=== PATIENT | male | born 1960 | race Caucasian/White ===

== ENCOUNTER 2021-12-15 13:00 | Outpatient (REF) | payer OTHER, SELFPAY ==
--- NOTE | 2021-12-15 11:15 | SKI_PTH ---
PATIENT: Mk Camp LOC: [facility] U#:[id number] AGE/SX: 61/M ROOM: RE12/15/[address]: Ryan Zendejas DO : 1960 BED: DIS: 12/15/2021 SPEC #: [id number] RECD: 12/18/21 12:41 STATUS: LORENZO REQ #: [id number] JAYDA: 12/15/21 11:[address]: Ryan Zendejas DEPT: Surgical Specimen RECD BY: Melva Zheng ENTERED: 12/18/21 12:41 SP TYPE: SKI OTHR DR: Gonzalez Gonzalez Tissues: 1 - SKIN BIOPSY(SHAVE/PUNCH) Procedures: SKIN LEVEL 4 Comments: [id number]
--- OUTSIDE RECORDS SUMMARY | 2021-12-15 13:04 | XMS_ITS ---
:1960 Author Organization Department [facility] rs Address [address] [place] [address] Care Team Providers Name Role Phone FLOWERCHELLE DARIN Primary Care Provider Unavailable Insurance Providers: All historical and current Section Date Range: From patient's date of to the date document was created.This section includes the names of all active insurance providers for the patient. Insurance Type of Plan Start of End of Group Member Insurance Policy P atient's Provider Coverage Name Policy Policy Number ID Provider's Juarez's Relationship Coverage Coverage Telephone Name to Policy Number Juarez [place] Oct 08 [id number] [phone] Loc [place] PATIENT FEP INSURANCE L 112 2010 52 5 [place] (DENTAL) [place] PREF[place]ED BAS[place] Oct 08 [id number] [phone] Loc [place] PATIENT FEP PROVIDER FAMIL 2010 52 5 [place] ORGANIZAT Y ION (PPO) [place] PREFERRED BAS[place] Oct 08 [id number] [phone] Loc [place] PATIENT FEDERAL PROVIDER FAMIL 2010 52 4 ICHAEL ORGANIZAT Y ION (PPO) CAR[place]ARK-F PRESCRIPT FEP Oct [id number] Loc [place] PATIENT EP BCBS ION BCBS 2010 0 52 7 I[place]EL [place]ARK-F PRESCRIPT FEP Oct [id number] [phone] Loc [place] PATIENT EP BCBS ION 2010 0 52 331 [place] CAREMARK-F PRESCRIPT BCBS Oct [id number] [phone] Loc [place] PATIENT EP BCBS ION FEP 2010 0 52 331 I[place] PLAN HIGHMARK PREFERRED SUKHI Oct [id number] [phone] Loc SUMNER PATIENT BLUE PROVIDER AL* 2010 0 52 6 ICHA[place] CROSS* ORGANIZAT ION (PPO) HIGHMARK DENTAL SUKHI Oct 08 [id number] [phone] Loc CAMP PATIENT DENTAL INSURANCE AL 2010 52 7 ICHAEL (FEP) DENTA L HORIZON PREFERRED BASIC Oct [id number] [phone] KURT IM PATIENT BCBS FEP* PROVIDER FAMIL 2010 52 8 ICHAEL ORGANIZAT Y ION (PPO) INDEPENDEN PREFERRED BASIC Oct 08 [id number] [phone] Loc [place] PATIENT CE BLUE PROVIDER FAMIL 2010 52 0 ICHA[place] CROSS ORGANIZAT Y (FEP) ION (PPO) Selected Encounter This section includes the information on record at SD for the Encounter. Date/Time Encounter Type Encounter Description Reason Provider Source Aug 12, 2021 12:00 Outpatient Encounter EVENT (HISTORICAL) AM E Encounter Template Text not used by SD Plan of Treatment: Future Appointments (+ 6 months) and Future Tests (+/- 45 days) The Plan of Treatment section includes future care activities for the patient from all [place] treatment facilities. This section includes future appointments and future orders which are active, pending or scheduled.Future Appointments This section includes appointments that were scheduled to occur 6 months from the date of the Encounter, up to a maximum of 20 appointments. The [facility] Appointment Date/Time Appointment Type Appointment Facili ty Name Aug 15, 2021 10:30 AM AMBULAT[facility] - [facility]INE [facility] Aug 18, 2021 04:36 PM AMBULATORY - NONE [facility] Sep 25, 2021 11:30 AM [facility] Oct 05, 2021 02:00 PM [facility] - [facility] [place] [facility] Oct 05, 2021 03:30 PM AMBULATORY - NONE [facility] Nov 22, 2021 10:00 AM [facility]ORY - [facility]IC[facility] [place] [facility] Nov 22, 2021 11:30 AM AM[facility]ORY - NONE [facility] Dec 15, 2021 11:15 AM [facility] Jan 25, 2022 11:30 AM [facility] - MEDICINE [facility] Active, Pending, and Scheduled Orders This section includes a listing of several types of active, pending, and scheduled orders, including clinic medications orders, diagnostic test orders, procedure orders and consult orders; where the start date of the order is 45 days before the date of the Encounter or 45 days after the date of the Encounter. The data comes from all [place] treatment facilities. Test Date/Time Test Type Test Details Facility Name Aug 15, 2021 10:44 AM Consult Order COLONOSCOPY SCREENING OUTP T [facility] Cons Orthopedic Shoe Fitter's Choice Lab Results: +/- 30 days of the encounter This section includes the Chemistry and Hematology Lab Results on record with SD for the patient. Radiology Reports and Pathology Reports are provided separately, in subsequent sections.Lab Results This section contains the Chemistry/Hematology Results that were resulted 30 days before or 30 days after the date of the Encounter. Date/Time Source Result Type Result - Unit Interpretation Reference Range Comment Aug 15, 2021 11:01 [facility] URINALYSIS W/REFLEX TO Specimen Type: URINE AM CULTURE No comment enter ed. Ordering Provider: DARIN ZHAO Report Released Date/Time: Aug 15, 2021 10:46 AM Reporting Lab: [facility] [address] [facility] [address] Performing Lab: [facility] [address] [facility] [address] URINE COLOR Straw YELLOW SPECIFIC GRAVITY 1.005 1.003-1.030 UROBILINOGEN <2.0 mg/dL <2.0 URINE BILIRUBIN NEG NEG URINE KETONES NEG mg/dL NEG URINE GLUCOSE NEG mg/dL NEG PROTEIN, URINE NEG mg/dL NEG URINE PH 7.0 5-8 CLARITY CLEAR Clear URINE BLOOD NEG NEG NITRITE, URINE NEG NEG WBC SCREEN NEG NEG Aug 15, 2021 11:01 [facility] P4 GLU,BUN,CREAT,LYTES,CA Specimen Type: PLASMA AM Comment: Tests performed on [employer] (405) SN:[id number] Ordering Provider: DARIN ZHAO Report Released Date/Time: Aug 15, 2021 10:46 AM Reporting Lab: [facility] [address] [facility] [address] Performing Lab: IBRAHIMA MARTIN [facility] [address] [facility] [address] UREA NITROGEN 18 mg/dL 7-25 SODIUM 138 mmol/L 135-145 POTASSIUM 4.0 mmol/L 3.5-5.0 CHLORIDE 106 mmol/L 100-110 CARBON DIOXIDE 21 mmol/L 20-30 ANION GAP 11 mmol/L 4-16 GLUCOSE 94 mg/dL 65-100 CREATININE 1.04 mg/dl 0.5-1.5 CALCIUM 9.1 mg/dL 8.5-10.5 eGFR 73 mL/min >60 Immunizations: All administered on the encounter date This section contains immunizations associated to the Encounter. Immunization Series Date Issued Reaction Comments COVID-19 (PFIZER), MRNA, LNP-S, PF, 30 MCG/0.3 2 Aug 12, 2021 ML DOSE Social History: Smoking Status (Most current) and Tobacco Use (All prior to encounter date) This section includes the most current, and the historical, smoking and tobacco-related health factors from the [place] facility where the Encounter took place.Current Smoking Status This section includes the most current smoking, or tobacco-related health factor, from the [place] facility where the Encounter took place. Date/Time Current Smoking Status Comment Facility May 02, 2020 03:54 PM VA-TOBACCO NEVER USED SVETLANA MARTIN [facility] Radiology Reports: +/- 30 days of the encounter Radiology Reports For cases when an order for radiology services may have been completed prior tothe date of the Encounter, the report list includes the Radiology Reports that were completed up to 30 days before date of the Encounter. For cases when an order for radiology services may have been completed after the date of the Encounter, the report list also includes the Radiology Reports that were completed up to 30 days after date of the Encounter. The data comes from all [place] treatment facilities. Date/Time Radiology Report Provider Source Aug 18, 2021 09:28 AM ULTRASOUND RENAL: IBRAHIMA JOHNS [facility] GERALD CAMP [id number] -JAN 10 [birth year] M Exm Date: AUG 18, 2021@09:28 Req Phys: EVONNE VALERA Loc: OUTSIDE ULTRASOUND (Req'g Loc) Img Loc : OUTSIDE ULTRASOUND Service : Unknown (Case [id number] COMPLETE) ULTRASO UND RENAL (US Detailed) CPT:94335 Reason for Study: Exam imported from outsid e Clinical History: Original Data for Imported Study Patient Name: Gerald Camp Date: 1960 Sex: M Study Date: 08/18/21 [facility] Time: 09:28:05 Study Description: US BLADDER W/RENAL Referring Physician: Darin Zhao Series 1: 1 US file Series 2: 40 US files, description: US B LADDER W/RENAL Acquisition site: [facility] Report Status: Electronically Filed Da te Reported: AUG 30, 2021 Report: RADIOLOGY PROCEDURE: N O T I C E: SCANNED IN R EPORT THIS EXAMINATION WAS PERFORMED AND INTERP RETED AT A NON-VA FACILITY. To view the report, select the [employer] Tools Menu and choose the Image Display (Viewer) option. Impression: RADIOLOGY PROCEDURE: N O T I C E: SCANNED IN R EPORT THIS EXAMINATION WAS PERFORMED AND INTERP RETED AT A NON-VA FACILITY. To view the report or images, select the [employer] Tools Menu and choose the Image Display (Viewer) optio n. Primary Diagnostic Code: NOT ORDERED BY [facility] VERIFIED BY: / *ELECTRONICALLY FILED* Pathology Reports: +/- 30 days of the encounter Pathology Reports For cases when an order for pathology services may have been completed prior to the date of the Encounter, the report list includes the Pathology Reports that were completed up to 30 days before date of the Encounter. For cases when an order for pathology services may have been completed after the date of the Encounter, the report list also includes the Pathology Reports that were completed up to 30 days after date of the Encounter. The data comes from all [place] treatment facilities. Date/Time Pathology Report Provider Source Aug 18, 2021 04:43 PM LR CYTOPATHOLOGY REPORT: FEDE EVANS [facility] LOCAL TITLE: LR CYTOPATHOLOGY REPORT STANDARD TITLE: PATHOLOGY REPORT DATE OF NOTE: AUG 18, 2021@16:43:21 ENTRY DATE: AUG 18, 2021@16:43:21 AUTHOR: FEDE EVANS EXP COSIGNER: URGENCY: STATUS: COMPLETED $APHDR Reporting Lab: [facility] [CLIA# [id number]] [address] [place] [place] [facility] [address] - - - - - - - - - - - - - - - - - - - - - - - - - - - - - - - - - - - - - - - - MEDICAL RECORD CYTOPATH OLOGY - - - - - - - - - - - - - - - - - - - - - - - - - - - - - - - - - - - - - - - - PATHOLOGY REPORT Accession No. CY 21 543 - - - - - - - - - - - - - - - - - - - - - - - - - - - - - - - - - - - - - - - - $TEXT Submitted by: DARIN ZHAO Date obtained: Aug 11, 2021 - - - - - - - - - - - - - - - - - - - - - - - - - - - - - - - - - - - - - - - - Specimen (Received Aug 16, 2021 08:58): URINE [id number] - - - - - - - - - - - - - - - - - - - - - - - - - - - - - - - - - - - - - - - - BRIEF CLINICAL HISTORY: - - - - - - - - - - - - - - - - - - - - - - - - - - - - - - - - - - - - - - - - PREOPERATIVE DIAGNOSIS: - - - - - - - - - - - - - - - - - - - - - - - - - - - - - - - - - - - - - - - - OPERATIVE FINDINGS: - - - - - - - - - - - - - - - - - - - - - - - - - - - - - - - - - - - - - - - - POSTOPERATIVE DIAGNOSIS: Surgeon/physician: NICANOR ZHAO CPR AMBULANCE DRIVER =-=-=-=-=-=-=-=-=-=-=-=-=-=- =-=-=-=-=-=-=-=-=-=-=-=-=-=-=-=-=-=-=-=-=-=-=-=-=-= - - - - - - - - - - - - - - - - - - - - - - - - - - - - - - - - - - - - - - - - PATHOLOGY REPORT Accession No. CY 21 543 - - - - - - - - - - - - - - - - - - - - - - - - - - - - - - - - - - - - - - - - Screened by: SCOTTY MOISE Description: RECEIVED 20mL OF CLEAR, YELLOS FLUID. SENT WITH CYTOLYT IN 1 TUBE. [facility] [id number] Diagnosis: Satisfactory specimen No malignant cells identified CPT:27198 /chelle/ FEDE EVANS M.D. PATHOLOGIST Signed Aug 18, 2021@16:43 Performing Laboratory: Cytology Report Performed By: [facility] [CLIA# [id number]] [address] [place] [phone] $FTR - - - - - - - - - - - - - - - - - - - - - - - - - - - - - - - - - - - - - - - - (End of report) FEDE EVANS MD Date Aug 18, 2021 - - - - - - - - - - - - - - - - - - - - - - - - - - - - - - - - - - - - - - - - GERALD CAMP STANDARD FORM 515 ID:[id number] SEX:M :1960 AGE: 61 LO C:NEW HIP PC P: Darin Zhao NP /chelle/ FEDE EVANS M.D. PATHOLOGIST Signed: 08/18/2021 16:43
--- OUTSIDE RECORDS SUMMARY | 2021-12-15 13:04 | XMS_ITS | Encounter Summary ---
:1960 Author Organization Department of [facility] rs Address [address] [place] [address] Care Team Providers Name Role Phone DARIN ZHAO Primary Care Provider Unavailable Insurance Providers: All [...] [place] Oct 08 [id number] [phone] Loc [place] PATIENT FEP INSURANCE L 112 2010 52 5 [place] (DENTAL) [place] PREF[place]ED BAS[place] Oct 08 [id number] [phone] Loc [place] PATIENT FEP PROVIDER FAMIL 2010 52 5 [place] ORGANIZAT Y ION (PPO) [place]REF[place] Oct 08 [id number] [phone] Loc [place] PATIENT FEDERAL PROVIDER FAMIL 2010 52 4 [place] ORGANIZAT Y ION (PPO) [place]-F PRESCRIPT FEP Oct 08 [id number] [phone] Loc [place] PATIENT EP BCBS ION BCBS 2010 0 52 7 [place] CAREMARK-F PRESCRIPT FEP Oct 08 [id number] [phone] Loc [place] PATIENT EP BCBS ION 2010 0 52 331 [place] CAREMARK-F PRESCRIPT BCBS Oct 08 [id number] [phone] Loc [place] PATIENT EP BCBS ION FEP 2010 0 52 331 [place] PLAN HIGHMARK PREFERRED SUKHI Oct 08 [id number] [phone] Loc [place] PATIENT BLUE PROVIDER AL* 2010 0 52 6 I[place] CROSS* ORGANIZAT ION (PPO) HIGHMARK DENTAL SUKHI Oct 08 [id number] [phone] Loc MARIE PATIENT DENTAL INSURANCE AL 2010 52 7 ICHAEL (FEP) DENTA L HORIZON PREFERRED BASIC Oct 08 [id number] [phone] Loc [place] PATIENT BCBS FEP* PROVIDER FAMIL 2010 52 8 [place] ORGANIZAT Y ION (PPO) INDEPENDEN PREFERRED BASIC Oct 08 [id number] [phone] Loc [place] PATIENT CE BLUE PROVIDER FAMIL 2010 52 0 [place] CROSS ORGANIZAT Y (FEP) ION (PPO) Selected Encounter This section includes the information on record at [place] for the Encounter. Date/Time Encounter Type Encounter Description Reason Provider Source Jun 29, 2021 10:44 Outpatient Encounter TELEPHONE TRIAGE AM IHE Encounter Template Text not used by [facility] Plan of Treatment: Future Appointments (+ 6 months) and Future Tests (+/- 45 days) The Plan of Treatment section includes future care activities for the patient from all [place] treatment facilities. This section includes future appointments and future orders which are active, pending or scheduled.Future Appointments This section includes appointments that were scheduled to occur 6 months from the date of the Encounter, up to a maximum of 20 appointments. The data comes [facility] [place] [facility] Appointment Date/Time Appointment Type Appointment Facili ty Name Aug 15, 2021 10:30 AM AMBULATORY - MEDICINE [facility] Aug 18, 2021 04:36 PM AMBULATORY - NONE [facility] Sep 25, 2021 11:30 AM AMBULATORY - MEDICINE [facility] Oct 05, 2021 02:00 PM [facility] - [facility]IC[facility] [place] [facility] Oct 05, 2021 03:30 PM AMBULATORY - NONE [facility] Nov 22, 2021 10:00 AM [facility] - [facility]IC[facility] [place] [facility] Nov 22, 2021 11:30 AM AMBULATORY - NONE [facility] Dec 15, 2021 11:15 AM [facility] Lab Results: +/- 30 days of the encounter This section includes the Chemistry and Hematology Lab Results on record with [place] for the patient. Radiology Reports and Pathology Reports are provided separately, in subsequent sections.Lab Results This section contains the Chemistry/Hematology Results that were resulted 30 days before or 30 days after the date of the Encounter. Date/Time Source Result Type Result - Unit Interpretation Reference Range Comment Jun 28, 2021 09:55 [facility] GLYCOHEMOGLOBIN (A1C ONLY) Specimen Type: BLOOD AM Comment: Tests performed on [employer] (405) SN:[id number] Ordering Provider: DARIN ZHAO Report Released Date/Time: Jun 28, 2021 07:11 AM Reporting Lab: [facility] [address] [facility] [address] Performing Lab: [facility] [address] [facility] [address] HEMOGLOBIN A1C 5.3 % 4.0-5.6 Jun 28, 2021 09:55 AM [facility] IRON+TIBC(P) Specimen Type: PLASMA Comment: Tests performed on [employer] (405) SN:[id number] Ordering Provider: DARIN ZHAO Report Released Date/Time: Jun 28, 2021 07:11 AM Reporting [facility] [address] [place] [facility] [place] [address] Performing Lab: [facility] [address] [place] [facility] [place] [place] [place] [address] IRON 59 ug/dL 40-160 TIBC 303 ug/dL 204-475 IRON SATURATION(P) 19 % >15 Jun 28, 2021 09:55 AM [facility] FERRITIN Specimen Type: SERUM Comment: Tests performed on [employer] (405) SN:[id number] Ordering Provider: DARIN ZHAO Report Released Date/Time: Jun 28, 2021 07:11 AM Reporting Lab[facility] [address] [place] [facility] [place] [place] [place] [address] Performing Lab: [facility] [address] [facility] [address] FERRITIN 287.5 ng/mL 20-300 Jun 28, 2021 09:55 [facility] P4 GLU,BUN,CREAT,LYTES,CA Specimen Type: PLASMA AM Comment: Tests performed on [employer] (405) SN:[id number] Ordering Provider: DARIN ZHAO Report Released Date/Time: Jun 28, 2021 07:11 AM Reporting Lab: [facility] [address] [facility] [address] Performing Lab: [facility] [address] [facility] [address] UREA NITROGEN 21 mg/dL 7-25 SODIUM 137 mmol/L 135-145 POTASSIUM 3.8 mmol/L 3.5-5.0 CHLORIDE 106 mmol/L 100-110 CARBON DIOXIDE 22 mmol/L 20-30 ANION GAP 9 mmol/L 4-16 GLUCOSE 98 mg/dL 65-100 CREATININE 1.07 mg/dl 0.5-1.5 CALCIUM 8.6 mg/dL 8.5-10.5 eGFR 71 mL/min >60 Jun 28, 2021 09:55 AM [facility] CBC PROFILE Specimen Type: BLOOD No comment enter ed. Ordering Provider: DARIN ZHAO Report Released Date/Time: Jun 28, 2021 07:11 AM Reporting Lab: [facility] [address] [facility] [address] Performing Lab: [facility] [address] [facility] [address] WBC 7.6 10*3/uL 4.5-11.0 RBC 5.36 10*6/uL 4.23-5.66 HGB 16.2 g/dl 12.8-17 HEMATOCRIT 48.6 % 39.2-50.4 MCV 90.7 fl 82-99 MCH 30.2 pg 26.2-32.6 MCHC 33.3 g/dl 30.8-35.1 PLT 259 10*3/uL 140-360 MPV 10.5 fl 9.2-12.4 RDW 12.5 % 12.0-16.0 LYMPH % 18.8 % 14.0-42.3 MONO % 10.1 % 5.1-13.7 NEUT % 68.4 % 43.7-75.8 EOS % 1.7 % 0.4-6.8 BASO % 0.7 % 0.1-2.0 IG % 0.3 % 0.0-0.7 NUCLEATED RED CELLS 0.0 /100 WBC 0.0-0.0 ABSOLUTE IG 0.0 10*3/uL 0-0.06 ABSOLUTE BASOPHILS 0.1 10*3/uL 0.01-0.13 ABSOLUTE EOS. 0.1 10*3/uL 0.03-0.44 ABSOLUTE LYMPHOCYTES 1.4 10*3/uL 1.0-3.2 ABSOLUTE MONOCYTES 0.8 10*3/uL 0.3-1.1 ABSOLUTE GRANULOCYTES 5.2 10*3/uL 2.2-7. 6 ABSOLUTE NRBC 0.00 10*3/uL 0-0 Jun 28, 2021 09:55 AM [facility] LIVER PROFILE Specimen Type: PLASMA Comment: Tests performed on [employer] (405) SN:[id number] Ordering Provider: DARIN ZHAO Report Released Date/Time: Jun 28, 2021 07:11 AM Reporting [facility] [address] [address] Performing Lab: [facility] [address] [address] PROTEIN, TOTAL 7.2 g/dL 6.0-8.5 ALBUMIN 3.8 g/dL 3.2-5.0 BILIRUBIN, TOTAL 0.6 mg/dL 0.2-1.2 ALKALINE PHOSPHATASE 68 U/L 40-150 ALT(SGPT) 30 U/L 7-52 AST(SGOT) 21 U/L 5-34 Jun 28, 2021 09:55 [facility] LIPOPROTEIN CHOLESTEROL Specimen Type: PLASMA AM FRACT. PANEL Comment: Tests performed on [employer] (405) SN:[id number] Ordering Provider: DARIN ZHAO Report Released Date/Time: Jun 28, 2021 07:11 AM Reporting Lab: [facility] [address] [address] [facility]forming Lab: [facility] [address] [address] CHOLESTEROL 184 mg/dL 0-199 TRIGLYCERIDE 90 mg/dL 0-149 HDL CHOLESTEROL 39 mg/dL L >40 LDL CHOLESTEROL (CALC) 127 mg/dl 0-129 Social History: Smoking Status (Most current) and Tobacco Use (All prior to encounter date) This section includes the most current, and the historical, smoking and tobacco-related health factors from the [place] facility where the Encounter took place.Current Smoking Status This section includes the most current smoking, or tobacco-related health factor, from the [place] facility where the Encounter took place. Date/Time Current Smoking Status Comment Facility May 02, 2020 03:54 PM VA-TOBACCO NEVER USED SVETLANA [facility] Encounter Notes: All associated encounter notes This section contains the clinical notes associated to the Encounter. Date/Time Encounter Note(s) Provider Source Jun 29, 2021 10:44 AM PRIMARY CARE ADMINISTRATIVE NOTE: ELSIE MOORE [facility] LOCAL TITLE: Administrative Note/Primary Care STANDARD TITLE: PRIMARY CARE ADMINISTRATIVE NOTE DATE OF NOTE: JUN 29, 2021@10:44 ENTRY DATE: JUN 29, 2021@10:44:42 AUTHOR: ELSIE ZEE EXP COSIGNER: URGENCY: STATUS: COMPLETED Tatyana called from [facility] regarding his Renal Bladde r US order for his kidney stones. She called the office of community care for an authorization and they don't have a request on file. /chelle/ ELSIE ZEE Signed: 06/29/2021 10:45 Receipt Acknowledged By: * AWAITING SIGNATURE * DARIN ZHAO * AWAITING SIGNATURE * AIDE LLOYD V
--- OUTSIDE RECORDS SUMMARY | 2021-12-15 13:04 | XMS_ITS | Continuity of Care Document ---
:1960 Author Organization [facility] Care Team Providers Name Role Phone [facility] Unavailable Unavailable Problems Combined list of problems from Department of Defense and Veterans Affairs facilities. It does not include entries that were removed or entered in error. Problem Status Onset Problem Date of Comments Source Date Type Resolution Ankle pain Active Condition [facility]ion of lower [facility] Active Condition [facility] Nov 17, 2013 Entered By: YELITZA YOUNG Comment: right kidney/uret er operation Hydronephrosis Active Condition [facility] Jan 18, 2014 Entered By: YELITZA YOUNG Comment: right Jan 18, 2014 Entered By: YELITZA YOUNG Comment: [place] 01/2014 Hyperlipidemia Active Condition [facility] Obstruction of Active Condition [facility] pelviureteric [facility] Vitamin D deficiency Active Condition 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 Provider Comments: Hemangioma of skin and subcutaneous tissue Diagnosis: ICD-10-CM active Diagnosis [place] Z71.9 Counseling, JOSE T [facility] unspecifiedwith Provider Comments: Counseling, unspecified Diagnosis: ICD-10-CM active Diagnosis [place] N13.[address] [facility] hydronephrosiswith Provider Comments: Unspecified hydronephrosis Diagnosis: ICD-10-CM active Diagnosis [facility] N13.30 Unspecified C LINIC hydronephrosiswith Provider Comments: Unspecified Hydronephrosis Diagnosis: ICD-10-CM active Diagnosis [facility] M79.632 Pain in left CLINIC forearmwith Provider Comments: Pain in left Forearm Diagnosis: ICD-10-CM active Diagnosis [place] R00.1 Bradycardia, J CT [facility] unspecifiedwith Provider Comments: Bradycardia, unspecified Diagnosis: ICD-10-CM active Diagnosis [place] M25.512 Pain in left T [facility] shoulderwith Provider Comments: Pain in left Shoulder Diagnosis: ICD-10-CM active Diagnosis [place] Z46.0 Encounter for [facility] fit/adjst of spectacles and contact lenseswith Provider Comments: Encounter for Fitting and Adjustment of Spectacles and Contact Lenses Diagnosis: ICD-10-CM active Diagnosis [facility] [facility] R35.0 Frequency of C LINIC micturitionwith Provider Comments: Frequency of Micturition Medications Combined list of outpatient medications from Department of Defense and Veterans Affairs facilities. Medications provided include 1) outpatient medications from the last 15 months, and 2) patient-reported medications. Medication Details Route Status Patient Prescription Prescription Last Ordering Order Source Instructions Expires Number Dispense Provider Date Date ACETAMINOPH TAKE ONE ORAL ACTIVE YOUNG,KET 11/17/ COATESV EN 500MG TABLET KI D 2013 [facility] AMOXICILLIN TAKE ONE ORAL ACTIVE BRYON 08/21/ [place] TRIHYDRATE TABLET ,ANTOINE 2017 [facility] 500MG/CLAVU BY MOUTH R CLINI C LANATE K THREE 125MG TAB TIMES A DAY FLUTICASONE INSTILL NASAL ACTIVE BRYON 08/21/ [place] PROPIONATE 2 SPRAYS ,ANTOINE 2017 [facility] 50MCG/SPRAY INTO R CLINIC SOLN,NASAL, EACH 16GM NOSTRIL PEG-3350/EL TAKE 1 ORAL ACTIVE/ 2022 [id number] RAY,KR IST 12/25/ WHITE ECTROLYTES GALLON SUSP 2 EN A 2021 [place] PWDR BY MOUTH [place] [facility] DIRECTED - DO NOT START COLONOSC OPY PREPARAT ION UNTIL YOU ARE CONTACTE D BY THE GASTROEN TEROLOGY DEPARTME NT WITH INSTRUCT IONS PREPARE. ..STARTI NG AT 6PM THE DAY PRIOR TO YOUR PROCEDUR E, DRINK 8OZ EVERY 20 MINUTES UNTIL DONE WITH THE FIRST HALF GALLON(6 4OZ). STARTING 6 HOURS BEFORE YOUR PROCEDUR E TIME, DRINK 8OZ EVERY 20 MINUTES UNTIL DONE WITH SECOND HALF GALLON(6 4OZ). 01/25/22 - DO NOT START COLONOSC OPY PREPARAT ION UNTIL YOU ARE CONTACTE D BY THE GASTROEN TEROLOGY DEPARTME NT WITH INSTRUCT IONS PREPARE. ..STARTI NG AT 6PM THE DAY PRIOR TO YOUR PROCEDUR E, DRINK 8OZ EVERY 20 MINUTES UNTIL DONE WITH THE FIRST HALF GALLON(6 4OZ). STARTING 6 HOURS BEFORE YOUR PROCEDUR E TIME, DRINK 8OZ EVERY 20 MINUTES UNTIL DONE WITH SECOND HALF GALLON(6 4OZ). 01/25/22 Immunizations Combined list of available immunizations from the Department of Defense and Veterans Affairs facilities. Immunization Series Date Administered Site Reaction Lot CVX Drug St atus Comments Source Given By Number Code Certified Mortician COVID-19 2 complet [facility] ITE (PFIZER), 2020 ed RIVE R MRNA, LNP-S, J CT PF, 30 [facility] MCG/0.3 ML DOSE COVID-19 1 complet WH ITE (PFIZER), 2020 ed RIVE R MRNA, LNP-S, J CT PF, 30 [facility] MCG/0.3 ML DOSE TDAP complet Site: [place] [facility] 2018 ed Left [facility] Deltoid [facility]INIC Results Combined list of recent chemistry, hematology and other laboratory results from Department of Defense and Veterans Affairs, ranging from 15 months to all on record, depending upon the facility. Order Name Results Value Reference Date Interpretation Specimen Com ments Source Range UREA UREA 20 7 - 25 11/22 Specimen Type: PLASMA WHITE NITROGEN NITROGEN mg/dL /2021 Comment: Tests performed on [employer] (405) SN:[id number] [place] [MASS/VOLUM Ordering Provider: DARIN ZHAO] IN SERUM Report Released Date/Time: Oct 27, 2021 11:17 AM V[facility] OR PLASMA Reporting [facility] [address] [facility] [address] Performing Lab: [facility] [address] [facility] [address] CREATININE CREATININE 1.11 0.5 - 1.5 11/22 Specimen Type: PLASMA WHITE WITH eGFR [MASS/VOLUM mg/dl /2021 Comment: Tests performed on [employer] (405) SN:[id number] [place] PANEL E] IN SERUM Ordering Provider: DARIN ZHAO OR PLASMA Report Released Date/Time: Oct 27, 2021 11:17 AM [facility] Reporting Lab: [facility] [address] [facility] [address] Performing Lab: [facility] [address] [facility] [address] CREATININE GLOMERULAR 68 60 11/22 Specimen T ype: PLASMA WHITE WITH eGFR FILTRATION mL/min /2021 Comment: Tests performed on [employer] (405) SN:[id number] [place] PANEL RATE/1.73 Ordering Provider: DARIN ZHAO SQ Report Released Date/Time: Oct 27, 2021 11:17 AM [facility] M.PREDICTED Reporting Lab: [facility]A MARTIN T [facility] [VOLUME [address] [facility] [address] RATE/AREA] Performing Lab: [facility] MART[facility] T [facility] IN SERUM OR [address] [facility] [address] PLASMA BY CREATININE- BASED FORMULA (MDRD) URINALYSIS COLOR OF Straw 08/15 Specimen Typ e: URINE BEAU W/REFLEX URINE /2020 No comment ente red. VA TO CULTURE Ordering Provider: DARIN ZHAO Report Released Date/Time: Aug 15, 2021 10:46 AM Reporting Lab: [facility] [address] [facility] [address] Performing Lab: [facility] [address] [place] [facility] [place] [address] URINALYSIS SPECIFIC 1.005 1.003 - 08/15 Specimen Typ e: URINE BEAU W/REFLEX GRAVITY OF 1.030 /2020 No comment e ntered. [facility] TO CULTURE URINE BY Ordering Provider: DARIN ZHAO REFRACTOMET Report Released Date/Time: Aug 15, 2021 10:46 AM RY Reporting Lab: [facility] T [facility] [address] [facility] [address] Performing Lab: [facility] [address] [facility] [address] URINALYSIS UROBILINOGE <2.0mg <2.0 - 2.0 08/15 Specim en Type: URINE BEAU W/REFLEX N /dL /2020 No comment ente red. [facility] TO CULTURE [MASS/VOLUM Ordering Provider: DARIN ZHAO E] IN URINE Report Released Date/Time: Aug 15, 2021 10:46 AM Reporting Lab: [facility] [address] [place] [facility] [facility] [place] [address] Performing Lab: [facility] [address] [facility] [address] URINALYSIS BILIRUBIN.T NEG 08/15 Specimen Type: URINE BEAU W/REFLEX OTAL /2020 No comment ente red. [facility] TO CULTURE [PRESENCE] Ordering Provider: DARIN ZHAO IN URINE BY Report Released Date/Time: Aug 15, 2021 10:46 AM TEST STRIP Reporting Lab: [place] T [facility] [address] [place] [facility] [place] [address] Performing Lab: [place] T [facility] [address] [place] [facility] [place] [address] URINALYSIS KETONES NEGmg/ 08/15 Specimen Type : URINE BEAU W/REFLEX [PRESENCE] dL /2020 No comment e ntered. VA TO CULTURE IN URINE Ordering Provider: DARIN ZHAO [facility] Report Released Date/Time: Aug 15, 2021 10:46 AM Reporting Lab: [place] [facility] [address] [place] [facility] [place] [address] Performing Lab: [place] T [facility] [address] [place] [facility] [place] [address] URINALYSIS GLUCOSE NEGmg/ 08/15 Specimen Type : URINE BEAU W/REFLEX [MASS/VOLUM dL /2020 No comment entered. [facility] TO CULTURE E] IN URINE Ordering Provider: DARIN ZHAO [facility] BY TEST Report Released Date/Time: Aug 15, 2021 10:46 AM STRIP Reporting Lab: [place] T [facility] [address] [place] [facility] [place] [address] Performing Lab: [place] T [facility] [address] [place] [facility] [place] [address] URINALYSIS PROTEIN NEGmg/ 08/15 Specimen Type : URINE BEAU W/REFLEX [MASS/VOLUM dL /2020 No comment entered. [facility] TO CULTURE E] IN URINE Ordering Provider: DARIN ZHAO [facility] BY TEST Report Released Date/Time: Aug 15, 2021 10:46 AM STRIP Reporting Lab: [place] T [facility] [address] [place] [facility] [place] [address] Performing Lab: [place] T [facility] [address] [place] [facility] [place] [address] URINALYSIS PH OF URINE 7.0 5 - 8 08/15 Specimen Type: URINE BEAU W/REFLEX BY TEST /2020 No comment ente red. [facility] TO CULTURE STRIP Ordering Provider: DARIN ZHAO [facility] Report Released Date/Time: Aug 15, 2021 10:46 AM Reporting Lab: [place] [facility] [address] [place] [facility] [address] Performing Lab: [place] [facility] [address] [place] [facility] [place] [address] URINALYSIS APPEARANCE CLEAR 08/15 Specimen T ype: URINE [place] W/REFLEX OF URINE /2020 No comment ent ered. VA TO CULTURE Ordering Provider: DARIN ZHAO [facility] Report Released Date/Time: Aug 15, 2021 10:46 AM Reporting Lab: [place] [facility] [address] [place] [facility] [address] Performing Lab: [place] T [facility] [address] [place] [facility] [place] [address] URINALYSIS HEMOGLOBIN NEG 08/15 Specimen T ype: URINE BE[place] W/REFLEX [PRESENCE] /2020 No comment e ntered. VA TO CULTURE IN URINE Ordering Provider: DARIN ZHAO [facility] Report Released Date/Time: Aug 15, 2021 10:46 AM Reporting Lab: [place] [facility] [address] [place] [facility] [address] Performing Lab: [place] T [facility] [address] [place] [facility] [place] [address] URINALYSIS NITRITE NEG 08/15 Specimen Type : URINE BEAU W/REFLEX [PRESENCE] /2020 No comment e ntered. VA TO CULTURE IN URINE BY Ordering Provider: DARIN ZHAO [facility] TEST STRIP Report Released Date/Time: Aug 15, 2021 10:46 AM Reporting Lab: [place] [facility] [address] [place] [facility] [address] Performing Lab: [place] T [facility] [address] [place] [facility] [place] [address] URINALYSIS LEUKOCYTES NEG 08/15 Specimen T ype: URINE [place] W/REFLEX [PRESENCE] /2020 No comment e ntered. VA TO CULTURE IN URINE Ordering Provider: DARIN ZHAO [facility] Report Released Date/Time: Aug 15, 2021 10:46 AM Reporting Lab: [place] [facility] [address] [place] [facility] [place] [address] Performing Lab: [place] [facility] [address] [place] [facility] [place] [address] P4 UREA 18 7 - 25 08/15 Specimen Type: PLASMA BE[place] GLU,BUN,CR NITROGEN mg/dL /2020 Comment: Tests performed on [employer] (405) SN:[id number] [place], MASS/VOLUM Ordering Provider: DARIN ZAHO E] IN SERUM Report Released Date/Time: Aug 15, 2021 10:46 AM OR PLASMA Reporting Lab: [facility] [address] [facility] [address] Performing Lab: [facility] [address] [facility] [address] P4 SODIUM 138 135 - 145 08/15 Specimen Type: PLASMA BE[place] GLU,BUN,CR [MOLES/VOLU mmol/L /2020 Comment: Tests performed on [employer] (405) SN:[id number] [place], MD] IN Ordering Provider: DARIN ZHAO [facility] SERUM OR Report Released Date/Time: Aug 15, 2021 10:46 AM PLASMA Reporting Lab: [facility] [address] [facility] [address] Performing Lab: [facility] [address] [facility] [address] P4 POTASSIUM 4.0 3.5 - 5.0 08/15 Specimen Typ e: PLASMA [place] GLU,BUN,CR [MOLES/VOLU mmol/L /2020 Comment: Tests performed on [employer] (405) SN:[id number] [place], MD] IN Ordering Provider: DARIN ZHAO [facility] SERUM OR Report Released Date/Time: Aug 15, 2021 10:46 AM PLASMA Reporting Lab: [facility] [address] [facility] [address] Performing Lab: [facility] [address] [facility] [address] P4 CHLORIDE 106 100 - 110 08/15 Specimen Type : PLASMA [place] GLU,BUN,CR [MOLES/VOLU mmol/L /2020 Comment: Tests performed on [employer] (405) SN:[id number] [place], MD] IN Ordering Provider: DARIN ZHAO [facility] SERUM OR Report Released Date/Time: Aug 15, 2021 10:46 AM PLASMA Reporting Lab: [facility] GARCIA [facility] [address] [facility] [address] Performing Lab: IBRAHIMA MARTIN Abhi MDMROC [address] [facility] [address] P4 CARBON 21 20 - 30 08/15 Specimen Type: PLASMA [place] GLU,BUN,CR DIOXIDE, mmol/L /2020 Comment: Tests performed on [employer] (405) SN:[id number] [place] EAT,LYTES, TOTAL Ordering Provider: [facility] [MOLES/VOLU Report Released Date/Time: Aug 15, 2021 10:46 AM ME] IN Reporting Lab: [facility] SERUM OR [address] [facility] [address] PLASMA Performing Lab: IBRAHIMA MARTIN [facility] [address] [facility] [address] P4 ANION GAP 11 4 - 16 08/15 Specimen Type: PLASMA [place] GLU,BUN,CR IN SERUM OR mmol/L /2020 Comment: Tests performed on [employer] (405) SN:[id number] [place] EAT,LYTES, PLASMA Ordering Provider: [facility] [place] Report Released Date/Time: Aug 15, 2021 10:46 AM Reporting Lab: IBRAHIMA MARTIN [facility] [address] [facility] [address] Performing Lab: IBRAHIMA MARTIN [facility] [address] [facility] [address] P4 GLUCOSE 94 65 - 100 08/15 Specimen Type: PLASMA [place] GLU,BUN,CR [MASS/VOLUM mg/dL /2020 Comment: Tests performed on [employer] (405) SN:[id number] [place] EAT,LYTES, E] IN SERUM Ordering Provider: [facility] [place] OR PLASMA Report Released Date/Time: Aug 15, 2021 10:46 AM Reporting Lab: [facility] GARCIA [facility] [address] [facility] [address] Performing Lab: [facility] [address] [facility] [address] P4 CREATININE 1.04 0.5 - 1.5 08/15 Specimen Ty pe: PLASMA [place] GLU,BUN,CR [MASS/VOLUM mg/dl /2020 Comment: Tests performed on [employer] (405) SN:[id number] [place] EAT,LYTES, E] IN SERUM Ordering Provider: DARIN ZHAO [place] OR PLASMA Report Released Date/Time: Aug 15, 2021 10:46 AM Reporting Lab: [place] [facility] [address] [facility] [address] Performing Lab: [place] [facility] [address] [facility] [address] P4 CALCIUM 9.1 8.5 - 10.5 08/15 Specimen Type : PLASMA [place] GLU,BUN,CR [MASS/VOLUM mg/dL /2020 Comment: Tests performed on [employer] (405) SN:[id number] [place] EAT,LYTES, E] IN SERUM Ordering Provider: DARIN ZHAO [place] OR PLASMA Report Released Date/Time: Aug 15, 2021 10:46 AM Reporting Lab: [place] [facility] [address] [facility] [address] Performing Lab: [place] [facility] [address] [facility] [address] P4 GLOMERULAR 73 60 08/15 Specimen Type : PLASMA [place] GLU,BUN,CR FILTRATION mL/min /2020 Comment: Tests performed on [employer] (405) SN:[id number] MD EAT,LYTES, RATE/1.73 Ordering Provider: DARIN ZHAO [place] SQ Report Released Date/Time: Aug 15, 2021 10:46 AM M.PREDICTED Reporting Lab: IB[facility]IMA GARCIAT [facility] [VOLUME [address] [facility] [address] RATE/AREA] Performing Lab: IB[facility]IMA GARCIAT [facility] IN SERUM OR [address] [facility] [address] PLASMA BY CREATININE- BASED FORMULA (MDRD) GLYCOHEMOG HEMOGLOBIN 5.3 % 4.0 - 5.6 06/28 Specimen Type: BLOOD BEAU LOBIN (A1C A1C/HEMOGLO /2020 Comment: Tests performed on [employer] (405) SN:[id number] [place] ONLY) BIN.TOTAL Ordering Provider: DARIN ZHAO IN BLOOD BY Report Released Date/Time: Jun 28, 2021 07:11 AM HPLC Reporting Lab: [place] [facility] [address] [place] [facility] [place] [address] Performing Lab: [place] [facility] [address] [facility] [address] IRON+TIBC( IRON 59 40 - 160 06/28 Specimen Typ e: PLASMA BEAU P) [MASS/VOLUM ug/dL /2020 Comment: Tests performed on [employer] (405) SN:[id number] [place] E] IN SERUM Ordering Provider: DARIN ZHAO OR PLASMA Report Released Date/Time: Jun 28, 2021 07:11 AM Reporting Lab: [place] [facility] [address] [facility] [address] Performing Lab: [place] [facility] [address] [facility] [address] IRON+TIBC( IRON 303 204 - 475 06/28 Specimen Ty pe: PLASMA BEAU P) BINDING ug/dL /2020 Comment: Tests performed on [employer] (405) SN:[id number] [place] CAPACITY Ordering Provider: DARIN ZHAO [MASS/VOLUM Report Released Date/Time: Jun 28, 2021 07:11 AM E] IN SERUM Reporting Lab: [place] [facility] OR PLASMA [address] [facility] [address] Performing Lab: [place] [facility] [address] [facility] [address] IRON+TIBC( IRON 19 % 15 06/28 Specimen Type : PLASMA BEAU P) /2020 Comment: Tests performed on [employer] (405) SN:[id number] [place] [MASS Ordering Provider: DARIN ZHAO FRACTION] Report Released Date/Time: Jun 28, 2021 07:11 AM IN SERUM OR Reporting Lab: [place] [facility] PLASMA [address] [facility] [address] Performing Lab: [place] [facility] [address] [facility] [address] FERRITIN FERRITIN 287.5 20 - 300 06/28 Specimen Type : SERUM [place] [MASS/VOLUM ng/mL /2020 Comment: Tests performed on [employer] (405) SN:[id number] [place] E] IN SERUM Ordering Provider: DARIN ZHAO OR PLASMA Report Released Date/Time: Jun 28, 2021 07:11 AM BY Reporting Lab: [place] [facility] IMMUNOASSAY [address] [facility] [address] Performing Lab: [place] [facility] [address] [facility] [address] P4 UREA 21 7 - 25 06/28 Specimen Type: PLASMA [place] GLU,BUN,CR NITROGEN mg/dL /2020 Comment: Tests performed on [employer] (405) SN:[id number] [place], MASS/VOLUM Ordering Provider: DARIN ZHAO E] IN SERUM Report Released Date/Time: Jun 28, 2021 07:11 AM OR PLASMA Reporting Lab: [facility] [address] [facility] [address] Performing Lab: [facility] [address] [facility] [address] P4 SODIUM 137 135 - 145 06/28 Specimen Type: PLASMA BEAU GLU,BUN,CR [MOLES/VOLU mmol/L /2020 Comment: Tests performed on [employer] (405) SN:[id number] [place], MD] IN Ordering Provider: DARIN ZHAO [facility] SERUM OR Report Released Date/Time: Jun 28, 2021 07:11 AM PLASMA Reporting Lab: [facility] [address] [facility] [address] Performing Lab: [facility] [address] [facility] [address] P4 POTASSIUM 3.8 3.5 - 5.0 06/28 Specimen Typ e: PLASMA BEAU GLU,BUN,CR [MOLES/VOLU mmol/L /2020 Comment: Tests performed on [employer] (405) SN:[id number] [place], MD] IN Ordering Provider: DARIN ZHAO [facility] SERUM OR Report Released Date/Time: Jun 28, 2021 07:11 AM PLASMA Reporting Lab: [facility] [address] [facility] [address] Performing Lab: [facility] [address] [facility] [address] P4 CHLORIDE 106 100 - 110 06/28 Specimen Type : PLASMA BEAU GLU,BUN,CR [MOLES/VOLU mmol/L /2020 Comment: Tests performed on [employer] (405) SN:[id number] [place], MD] IN Ordering Provider: [facility] SERUM OR Report Released Date/Time: Jun 28, 2021 07:11 AM PLASMA Reporting Lab: [facility] [address] [facility] [address] Performing Lab: [facility] [address] [facility] [address] P4 CARBON 22 20 - 30 06/28 Specimen Type: PLASMA BEAU GLU,BUN,CR DIOXIDE, mmol/L /2020 Comment: Tests performed on [employer] (405) SN:[id number] [place] EAT,LYTES, TOTAL [facility]ing [facility] [MOLES/VOLU Report Released Date/Time: Jun 28, 2021 07:11 AM ME] IN Reporting Lab: [facility] SERUM OR [address] [facility] [address] PLASMA Performing Lab: IBRAHIMA MARTIN [facility] [address] [facility] [address] P4 ANION GAP 9 4 - 16 06/28 Specimen Type: PLASMA BEAU GLU,BUN,CR IN SERUM OR mmol/L /2020 Comment: Tests performed on [employer] (405) SN:[id number] [place] EAT,LYTES, PLASMA Ordering [facility]: [facility] [place] Report Released Date/Time: Jun 28, 2021 07:11 AM Reporting Lab: [facility] GARCIA [facility] [address] [facility] [address] Performing Lab: IBRAHIMA MARTIN [facility] [address] [facility] [address] P4 GLUCOSE 98 65 - 100 06/28 Specimen Type: PLASMA BEAU GLU,BUN,CR [MASS/VOLUM mg/dL /2020 Comment: Tests performed on [employer] (405) SN:[id number] [place] EAT,LYTES, E] IN SERUM [facility]ing [facility]: [facility] [place] OR PLASMA Report Released Date/Time: Jun 28, 2021 07:11 AM Reporting Lab: [facility] [address] [facility] [address] Performing Lab: IBRAHIMA MARTIN [facility] [address] [facility] [address] P4 CREATININE 1.07 0.5 - 1.5 06/28 Specimen Ty pe: PLASMA BEAU GLU,BUN,CR [MASS/VOLUM mg/dl /2020 Comment: Tests performed on [employer] (405) SN:[id number] [place] EAT,LYTES, E] IN SERUM [facility]ing [facility] [place] [facility]ASMA Report Released Date/Time: Jun 28, 2021 07:11 AM Reporting Lab: [place] [facility] [address] [facility] [address] Performing Lab: [place] [facility] [address] [facility] [address] P4 CALCIUM 8.6 8.5 - 10.5 06/28 Specimen Type : PLASMA BEAU GLU,BUN,CR [MASS/VOLUM mg/dL /2020 Comment: Tests performed on [employer] (405) SN:[id number] VA EAT,LYTES, E] IN SERUM [facility] [place] OR PLASMA Report Released Date/Time: Jun 28, 2021 07:11 AM Reporting Lab: [facility] [address] [facility] [address] Performing Lab: [facility] [address] [facility] [address] P4 GLOMERULAR 71 60 06/28 Specimen Type : PLASMA BEAU GLU,BUN,CR FILTRATION mL/min /2020 Comment: Tests performed on [employer] (405) SN:[id number] VA EAT,LYTES, RATE/1.73 [facility] [place] SQ Report Released Date/Time: Jun 28, 2021 07:11 AM M.PREDICTED Reporting Lab: [facility] [VOLUME [address] [facility] [address] RATE/AREA] Performing Lab: [facility] IN SERUM OR [address] [facility] [address] PLASMA BY CREATININE- BASED FORMULA (MDRD) CBC LEUKOCYTES 7.6 4.5 - 11.0 06/28 Specimen T ype: BLOOD BEAU PROFILE [#/VOLUME] 10*3/u /2020 No comment en tered. VA IN BLOOD BY L [facility] AUTOMATED Report Released Date/Time: Jun 28, 2021 07:11 AM COUNT Reporting Lab: [facility] [address] [facility] [address] Performing Lab: [facility] [address] [facility] [address] CBC ERYTHROCYTE 5.36 4.23 - 06/28 Specimen Typ e: BLOOD BEAU PROFILE S 10*6/u 5.66 /2020 No comment enter ed. VA [#/VOLUME] L Ordering Provider: DARIN ZHAO IN BLOOD BY Report Released Date/Time: Jun 28, 2021 07:11 AM AUTOMATED Reporting Lab: [facility] COUNT [address] [place] [facility] [address] Performing Lab: [facility] [address] [place] [facility] [place] [address] CBC HEMOGLOBIN 16.2 12.8 - 17 06/28 Specimen Ty pe: BLOOD BEAU PROFILE [MASS/VOLUM g/dl /2020 No comment e ntered. VA E] IN BLOOD Ordering Provider: DARIN ZHAO Report Released Date/Time: Jun 28, 2021 07:11 AM Reporting Lab: [facility] [address] [place] [place] [facility] [address] Performing Lab: [facility] [address] [place] [facility] [place] [address] CBC HEMATOCRIT 48.6 % 39.2 - 06/28 Specimen Type : BLOOD BEAU PROFILE [VOLUME 50.4 No comment enter ed. VA FRACTION] Ordering Provider: DARIN ZHAO OF BLOOD BY Report Released Date/Time: Jun 28, 2021 07:11 AM AUTOMATED Reporting Lab: [facility] [address] [place] [place] [facility] [address] Performing Lab: [facility] [address] [facility] [place] [facility] [address] CBC MCV 90.7 82 - 99 06/28 Specimen Type: BLOOD BEAU PROFILE [ENTITIC fl /2020 No comment ente red. VA VOLUME] BY Ordering Provider: DARIN ZHAO [facility] AUTOMATED Report Released Date/Time: Jun 28, 2021 07:11 AM COUNT Reporting Lab: [facility] [address] [place] [place] [facility] [address] Performing Lab: [facility] [address] [place] [facility] [place] [address] CBC MCH 30.2 26.2 - 06/28 Specimen Type: BLOOD BEAU PROFILE [ENTITIC pg 32.6 No comment ente red. VA MASS] BY Ordering Provider: DARIN ZHAO [facility] AUTOMATED Report Released Date/Time: Jun 28, 2021 07:11 AM COUNT Reporting Lab: [facility] [address] [place] [facility] [place] [address] Performing Lab: [facility] [address] [place] [facility] [place] [address] CBC MCHC 33.3 30.8 - 06/28 Specimen Type: BLOOD BEAU PROFILE [MASS/VOLUM g/dl 35.1 /2020 No comment e ntered. VA E] BY [facility]ing [facility]: [facility] AUTOMATED Report Released Date/Time: Jun 28, 2021 07:11 AM COUNT Reporting Lab: [facility] [address] [place] [facility] [place] [address] Performing Lab: [facility] [address] [facility] [address] CBC PLATELETS 259 140 - 360 06/28 Specimen Typ e: BLOOD BEAU PROFILE [#/VOLUME] 10*3/u No comment en tered. VA IN BLOOD BY L Ordering Provider: DARIN ZHAO [facility] AUTOMATED Report Released Date/Time: Jun 28, 2021 07:11 AM COUNT Reporting Lab: [facility] [address] [place] [facility] [place] [address] Performing Lab: [facility] [address] [place] [facility] [place] [address] CBC PLATELET 10.5 9.2 - 12.4 06/28 Specimen Typ e: BLOOD BEAU PROFILE MEAN VOLUME fl No comment e ntered. VA [ENTITIC Ordering Provider: [facility] VOLUME] IN Report Released Date/Time: Jun 28, 2021 07:11 AM BLOOD BY Reporting Lab: [facility] AUTOMATED [address] [place] [facility] [place] [address] COUNT Performing Lab: [facility] [address] [place] [facility] [place] [address] CBC ERYTHROCYTE 12.5 % 12.0 - 06/28 Specimen Typ e: BLOOD BEAU PROFILE DISTRIBUTIO 16.0 No comment e ntered. VA N WIDTH Ordering Provider: [facility] [RATIO] BY Report Released Date/Time: Jun 28, 2021 07:11 AM AUTOMATED Reporting Lab: [facility] COUNT [address] [place] [facility] [place] [address] Performing Lab: [facility] [address] [place] [facility] [place] [address] CBC LYMPHOCYTES 18.8 % 14.0 - 06/28 Specimen Typ e: BLOOD BEAU PROFILE /100 42.3 /2020 No comment enter ed. VA LEUKOCYTES Ordering Provider: DARIN ZHAO IN BLOOD BY Report Released Date/Time: Jun 28, 2021 07:11 AM AUTOMATED Reporting Lab: [facility] [address] [place] [facility] [facility] [place] [address] Performing Lab: [facility] [address] [place] [facility] [place] [address] CBC MONOCYTES/1 10.1 % 5.1 - 13.7 06/28 Specimen Type: BLOOD BEAU PROFILE 00 No comment enter ed. MD LEUKOCYTES Ordering Provider: DARIN ZHAO IN BLOOD BY Report Released Date/Time: Jun 28, 2021 07:11 AM AUTOMATED Reporting Lab: [facility] COUNT [address] [place] [facility] [place] [address] Performing Lab: [facility] [address] [place] [facility] [place] [address] CBC GRANULOCYTE 68.4 % 43.7 - 06/28 Specimen Typ e: BLOOD BEAU PROFILE S/100 75.8 /2020 No comment enter ed. MD LEUKOCYTES Ordering Provider: DARIN ZHAO IN BLOOD BY Report Released Date/Time: Jun 28, 2021 07:11 AM AUTOMATED Reporting Lab: [facility] COUNT [address] [place] [facility] [facility] [place] [address] Performing Lab: [facility] [address] [place] [facility] [place] [address] CBC EOSINOPHILS 1.7 % 0.4 - 6.8 06/28 Specimen T ype: BLOOD BEAU PROFILE /100 No comment enter ed. VA LEUKOCYTES Ordering Provider: DARIN ZHAO IN BLOOD BY Report Released Date/Time: Jun 28, 2021 07:11 AM AUTOMATED Reporting Lab: [facility] COUNT [address] [place] [facility] [place] [address] Performing Lab: [facility] [address] [place] [facility] [place] [address] CBC BASOPHILS/1 0.7 % 0.1 - 2.0 06/28 Specimen T ype: BLOOD BEAU PROFILE 00 No comment enter ed. MD LEUKOCYTES Ordering Provider: DARIN ZHAO IN BLOOD BY Report Released Date/Time: Jun 28, 2021 07:11 AM AUTOMATED Reporting Lab: [facility] [address] [place] [facility] [place] [address] Performing Lab: [facility] [address] [facility] [address] CBC IMMATURE 0.3 % 0.0 - 0.7 06/28 Specimen Type : BLOOD BEAU PROFILE GRANULOCYTE No comment e ntered. VA S/100 Ordering Provider: DARIN ZHAO LEUKOCYTES Report Released Date/Time: Jun 28, 2021 07:11 AM IN BLOOD BY Reporting Lab: [facility] AUT[facility]ATED [address] [facility] [address] COUNT Performing Lab: [facility] [address] [facility] [address] CBC NUCLEATED 0.0 0.0 - 0.0 06/28 Specimen Typ e: BLOOD BEAU PROFILE ERYTHROCYTE /100WB No comment e ntered. MD S C Ordering Provider: DARIN ZHAO [#/VOLUME] Report Released Date/Time: Jun 28, 2021 07:11 AM IN BLOOD BY Reporting Lab: [facility] AUTOMATED [address] [place] [facility] [place] [address] COUNT Performing Lab: [facility] [address] [place] [facility] [place] [address] CBC IMMATURE 0.0 0 - 0.06 06/28 Specimen Type: BLOOD BEAU PROFILE GRANULOCYTE 10*3/u /2020 No comment e ntered. VA S L Ordering Provider: DARIN ZHAO [facility] [#/VOLUME] Report Released Date/Time: Jun 28, 2021 07:11 AM IN BLOOD Reporting Lab: [facility] [address] [place] [facility] [place] [address] Performing Lab: [facility] [address] [place] [facility] [place] [address] CBC BASOPHILS 0.1 0.01 - 06/28 Specimen Type: BLOOD BEAU PROFILE [#/VOLUME] 10*3/u 0.13 No comment en tered. VA IN BLOOD BY L [facility] AUTOMATED Report Released Date/Time: Jun 28, 2021 07:11 AM COUNT Reporting Lab: [facility] [address] [place] [facility] [place] [address] Performing Lab: [facility] [address] [place] [facility] [place] [address] CBC EOSINOPHILS 0.1 0.03 - 06/28 Specimen Typ e: BLOOD BEAU PROFILE [#/VOLUME] 10*3/u 0.44 No comment en tered. VA IN BLOOD BY L [facility]ing [facility] AUTOMATED Report Released Date/Time: Jun 28, 2021 07:11 AM COUNT Reporting Lab: [facility] [address] [place] [facility] [place] [address] Performing Lab: [facility] [address] [place] [facility] [place] [address] CBC LYMPHOCYTES 1.4 1.0 - 3.2 06/28 Specimen T ype: BLOOD BEAU PROFILE [#/VOLUME] 10*3/u No comment en tered. VA IN BLOOD BY [facility]ing [facility] AUTOMATED Report Released Date/Time: Jun 28, 2021 07:11 AM COUNT Reporting Lab: [facility] [address] [place] [facility] [place] [address] Performing Lab: [facility] [address] [place] [facility] [place] [address] CBC MONOCYTES 0.8 0.3 - 1.1 06/28 Specimen Typ e: BLOOD BEAU PROFILE [#/VOLUME] 10*3/u No comment en tered. VA IN BLOOD BY L Ordering Provider: [facility] AUTOMATED Report Released Date/Time: Jun 28, 2021 07:11 AM COUNT Reporting Lab: [facility] [address] [place] [facility] [place] [address] Performing Lab: [facility] [address] [place] [facility] [place] [address] CBC NEUTROPHILS 5.2 2.2 - 7.6 06/28 Specimen T ype: BLOOD BEAU PROFILE [#/VOLUME] 10*3/u /2020 No comment en tered. VA IN BLOOD BY L Ordering Provider: DARIN ZHAO [facility] AUTOMATED Report Released Date/Time: Jun 28, 2021 07:11 AM COUNT Reporting Lab: [facility] [address] [place] [place] [facility] [address] Performing Lab: [facility] [address] [place] [facility] [place] [address] CBC NUCLEATED 0.00 0 - 0 06/28 Specimen Type: BLOOD BEAU PROFILE ERYTHROCYTE 10*3/u /2020 No comment e ntered. VA S L Ordering Provider: DARIN ZHAO [#/VOLUME] Report Released Date/Time: Jun 28, 2021 07:11 AM IN BLOOD BY Reporting Lab: [facility] AUT[facility]ATED [address] [facility] [place] [address] COUNT Performing Lab: [facility] [address] [place] [facility] [place] [address] LIVER PROTEIN 7.2 6.0 - 8.5 06/28 Specimen Type: PLASMA BEAU PROFILE [MASS/VOLUM g/dL /2020 Comment: Tests performed on [employer] (405) SN:[id number] VA E] IN SERUM Ordering Provider: DARIN ZHAO [facility] OR PLASMA Report Released Date/Time: Jun 28, 2021 07:11 AM Reporting Lab: [facility] [address] [place] [place] [facility] [address] Performing Lab: [facility] [address] [place] [facility] [place] [address] LIVER ALBUMIN 3.8 3.2 - 5.0 06/28 Specimen Type: PLASMA BEAU PROFILE [MASS/VOLUM g/dL /2020 Comment: Tests performed on [employer] (405) SN:[id number] VA E] IN SERUM Ordering Provider: [facility] OR PLASMA Report Released Date/Time: Jun 28, 2021 07:11 AM Reporting Lab: [facility] [address] [place] [place] [facility] [address] Performing Lab: [facility] [address] [place] [facility] [place] [address] LIVER BILIRUBIN.T 0.6 0.2 - 1.2 06/28 Specimen T ype: PLASMA BEAU PROFILE OTAL mg/dL /2020 Comment: Tests performed on [employer] (405) SN:[id number] MD [MASS/VOLUM Ordering Provider: DARIN ZHAO E] IN SERUM Report Released Date/Time: Jun 28, 2021 07:11 AM OR PLASMA Reporting Lab: [facility] [address] [place] [facility] [place] [address] Performing Lab: [facility] [address] [place] [facility] [place] [address] LIVER ALKALINE 68 U/L 40 - 150 06/28 Specimen Type: PLASMA BEAU PROFILE PHOSPHATASE /2020 Comment: Tests performed on [employer] (405) SN:[id number] MD [ENZYMATIC Ordering Provider: DARIN ZHAO ACTIVITY/VO Report Released Date/Time: Jun 28, 2021 07:11 AM LUME] IN Reporting Lab: [facility] SERUM OR [address] [facility] [place] [address] PLASMA Performing Lab: [facility] [address] [place] [facility] [place] [address] LIVER ALANINE 30 U/L 7 - 52 06/28 Specimen Type: PLASMA BEAU PROFILE AMINOTRANSF /2020 Comment: Tests performed on [employer] (405) SN:[id number] MD ERASE Ordering Provider: DARIN ZHAO [ENZYMATIC Report Released Date/Time: Jun 28, 2021 07:11 AM ACTIVITY/VO Reporting Lab: [facility] LUME] IN [address] [facility] [place] [address] SERUM OR Performing Lab: [facility] PLASMA [address] [place] [facility] [place] [address] LIVER ASPARTATE 21 U/L 5 - 34 06/28 Specimen Type: PLASMA BEAU PROFILE AMINOTRANSF /2020 Comment: Tests performed on [employer] (405) SN:[id number] VA ERASE Ordering Provider: DARIN ZHAO [ENZYMATIC Report Released Date/Time: Jun 28, 2021 07:11 AM ACTIVITY/VO Reporting Lab: [facility] LUME] IN [address] [facility] [place] [address] SERUM OR Performing Lab: [facility] PLASMA [address] [place] [facility] [place] [facility] [place] [address] Vital Signs Combined list of inpatient and outpatient Vital Signs from Department of Defense and Veterans Affairs, ranging from 12 months to all on record, depending upon the facility. Vital Sign Value Date Comments Source SYSTOLIC BLOOD 126mm[Hg] 09/25/2021 [facility] PRESSURE 13:10:18 DIASTOLIC BLOOD 78mm[Hg] 09/25/2021 [facility] PRESSURE 13:10:18 PULSE OXIMETRY 98% 09/25/2021 [facility] 13:10:18 WEIGHT 225[lb_av] 09/25/2021 [facility] 13:10:18 BMI 33kg/m2 09/25/2021 [facility] 13:10:18 PAIN 3 09/25/2021 [facility] 13:10:18 HEIGHT 69[in_us] 09/25/2021 [facility] 13:10:18 TEMPERATURE 98.4[degF] 09/25/2021 [facility] 13:10:18 PULSE 60/min 09/25/2021 [facility] 13:10:18 RESPIRATION 16/min 09/25/2021 [facility] 13:10:18 SYSTOLIC BLOOD 124mm[Hg] 08/15/2021 [facility] PRESSURE 10:41:54 DIASTOLIC BLOOD 80mm[Hg] 08/15/2021 [facility] PRESSURE 10:41:54 PULSE OXIMETRY 98% 08/15/2021 [facility] 10:41:54 WEIGHT 225.8[lb_av] 08/15/2021 [facility] 10:41:54 BMI 33kg/m2 08/15/2021 [facility] 10:41:54 HEIGHT 69[in_us] 08/15/2021 [facility] 10:41:54 PULSE 62/min 08/15/2021 [facility] 10:41:54 RESPIRATION 16/min 08/15/2021 [facility] 10:41:54 SYSTOLIC BLOOD 138mm[Hg] 06/28/2021 [facility] PRESSURE 10:35:21 DIASTOLIC BLOOD 84mm[Hg] 06/28/2021 [facility] PRESSURE 10:35:21 PULSE OXIMETRY 99% 06/28/2021 [facility] 10:35:21 TEMPERATURE 97.4[degF] 06/28/2021 [facility] 10:35:21 PULSE 62/min 06/28/2021 [facility] 10:35:21 RESPIRATION 16/min 06/28/2021 [facility] 10:35:21 Encounters Combined list of: 1) Encounters from Department of Veterans Affairs facilities going back up to thelast 18 months, not all VA inpatient encounters are included; 2) Encounters from the Department of Defense facilities going backup to 280 months. Location Location Encounter Encounter Reason Attending ADM DC Stat us Disposition Source Details Type Number For Provider Date Date Visit Outpatient 14892-9.40 08/08 [facility] En[facility] [id number] /2019 [facility] 21371-5.40 08/11 [facility] Encounter [id number] /2020 [facility] Outpatient 24563-9.40 08/11 [id number] [facility] OFFICE/OUT 68997-2.40 Diagnos Lilliana LLOYD 08/11 [facility] PATIENT [id number] is: USAN V VA VISIT EST 90 ICD-10- CLINIC CM R35.0 Frequen cy of micturi tion
with Provide r Comment s: Frequen cy of Micturi tion Outpatient 75100-9.40 08/15 [facility] Encounter [id number] /2020 [facility] 86972-5.40 11/21 [id number] [facility] 59781-2.40 11/21 [facility] [id number] [facility] 59988-3.40 11/21 [facility] Encounter [id number] [facility] [place] 63814-5.40 Diagnos REY ONTIVEROS 12/01 WH ITE SPECTACLES [id number] is: VID RIVE R MULTIFOCAL ICD-10- [facility] Z46.0 Encount er for fit/adj st of spectac les and contact lenses< br/>wit h Provide r Comment s: Encount er for Fitting and Adjustm ent of Spectac les and Contact Lenses Outpatient [id number] 06/22 [id number] [facility] 06958-1.40 Diagnos CYN AUGUSTE 06/26 W N[facility] PHONE CALL [id number] is: SUZANNA L RIVER 11-20 MIN ICD-10- [facility] M25.512 Pain in left shoulde r
w ith Provide r Comment s: Pain in left Shoulde r ELECTROCAR 52576-6.40 Diagnos BALDWIN,S 06/28 [facility] DIOGRAM [id number] is: [place] REPORT ICD-10- [facility] [facility] R00.1 Bradyca rdia, unspeci fied
with Provide r Comment s: Bradyca rdia, unspeci fied OFFICE O/P 83263-3.40 Diagnos PREMA,S 06/28 [facility] EST [id number] is: USAN V VA MINIMAL 79 ICD-10- CLINIC PROB CM M79.632 Pain in left forearm
wi th Provide r Comment s: Pain in left Forearm Outpatient 90104-0.40 06/29 [facility] En[facility] [id number] /[facility] 07137-1.40 07/22 [facility] Encounter [id number] /[facility]21 [facility] 30435-3.40 08/12 [facility] En[facility] [id number] [facility] 88443-8.40 08/15 [id number] [facility] 04364-8.40 Diagnos FLOWERSTIVENDARIN 08/15 [facility] EST LOW [id number] is: D VA 20-29 MIN 62 ICD-10- CLINIC CM N13.30 Unspeci fied hydrone phrosis
wi th Provide r Comment s: Unspeci fied Hydrone phrosis Outpatient 38829-2.40 FEDE EVANS 08/18 [facility] Encounter [id number] /[facility] 44675-7.40 08/21 [facility] [id number] [facility] 21866-1.40 Diagnos PRISCAECK,F 08/21 [facility] Encounter [id number] is: LORIAN RIVE R ICD-10- [facility] [facility] N13.30 Unspeci fied hydrone phrosis
wi th Provide r Comment s: Unspeci fied hydrone phrosis [place] 08590-8.40 Diagnos VIVEK HUGHES 09/21 W NIKOS PHONE CALL [id number] is: KADEEM SWARTZ R IVER 5-10 MIN ICD-10- [place] [facility] Z71.9 Pediatric Psychologist ing, unspeci fied
with Provide r Comment s: Pediatric Psychologist ing, unspeci fied OFFICE O/P 45880-4.40 Diagnos LEDBETTER,H 09/25 [facility] EST [id number] is: EATHER [facility] MINIMAL 39 ICD-10- CLINIC PROB CM D18.01 Hemangi michelle of skin and subcuta neous tissue< br/>wit h Provide r Comment s: Hemangi michelle of skin and subcuta neous tissue Outpatient [id number] 11/22 [facility] Encounter [id number] [facility] Social History Combined list of available smoking, tobacco, and other social history from Department of Defense andVeterans Affairs facilities. Social History Response Date Comment Source Type Tobacco smoking VA-TOBACCO NEVER 06/28/2021 [facility] status NHIS USED History of VA-TOBACCO NEVER 05/02/2020 [facility] tobacco use USED [facility] History of LIFETIME 03/25/2018 [facility] tobacco use NON-TOBACCO USER History of LIFETIME NON-USER 11/17/2013 MATHEUS Baptiste MD tobacco use OF [facility] Plan of Care List of future care activities from Department of Veterans Affairs facilities. Additional future care activities may be listed in the Assessment and Plan section. Date/Time Care Activity Care Activity Detail Facility 12/15/2021 AMBULATORY - NONE AMBULATORY - NONE [facility]
--- OUTSIDE RECORDS SUMMARY | 2021-12-15 13:04 | XMS_ITS ---
:1960 Author Organization [facility] Otolaryngology Address [address], [place] [id number] Care Team Providers Name Role Phone Zendejas Unavailable Unavailable PROBLEMS ALLERGIES No Known Allergies ENCOUNTERS IMMUNIZATIONS No Known Immunizations SOCIAL HISTORY No smoking Hx information available REASON FOR REFERRAL FUNCTIONAL STATUS PLAN OF CARE VITAL SIGNS MEDICATIONS PROCEDURES RESULTS No Results REASON FOR VISIT
--- OUTSIDE RECORDS SUMMARY | 2021-12-15 13:04 | XMS_ITS | Encounter Summary ---
:1960 Author Organization Department [facility] rs Address [address] [place] [address] Care Team Providers Name Role Phone FLOWERCHELLE [...] [place] Oct 08 [id number] [phone] Loc [place] PATIENT FEP INSURANCE L 112 2010 52 5 ICHAEL (DENTAL) [place] PREFERRED BASIC Oct 08 [id number] [phone] Loc [place] PATIENT FEP PROVIDER FAMIL 2010 52 5 ICHAEL ORGANIZAT Y ION (PPO) BCBS OF [place] PREFERRED BASIC Oct 08 [id number] [phone] Loc [place] PATIENT FEDERAL PROVIDER FAMIL 2010 52 4 ICHAEL ORGANIZAT Y ION (PPO) CAREMARK-F PRESCRIPT FEP Oct [id number] Loc [place] PATIENT EP BCBS ION BCBS 2010 0 52 7 ICHAEL CAREMARK-F PRESCRIPT FEP Oct [id number] [phone] Loc [place] PATIENT EP BCBS ION 2010 0 52 331 ICHAEL CAREMARK-F PRESCRIPT BCBS Oct [id number] [phone] Loc [place] PATIENT EP BCBS ION FEP 2010 0 52 331 ICHAEL PLAN HIGHMARK PREFERRED SUKHI Oct 08 [id number] [phone] Loc [place]NER PATIENT BLUE PROVIDER AL* 2010 0 52 6 ICHAEL CROSS* ORGANIZAT ION (PPO) HIGHMARK DENTAL SUKHI Oct 08 [id number] [phone] Loc CAMP PATIENT DENTAL INSURANCE AL 2010 52 7 ICHAEL (FEP) DENTA L HORIZON PREFERRED BASIC Oct 08 [id number] [phone] KURT IM PATIENT BCBS FEP* PROVIDER FAMIL 2010 52 8 ICHAEL ORGANIZAT Y ION (PPO) INDEPENDEN PREFERRED BASIC Oct 08 [id number] [phone] Loc [place] PATIENT CE BLUE PROVIDER FAMIL 2010 52 0 ICHAEL CROSS ORGANIZAT Y (FEP) ION (PPO) Selected Encounter This section includes the information on record at PA for the Encounter. Date/Time Encounter Type Encounter Description Reason Provider Source Jul 22, 2021 12:00 Outpatient Encounter EVENT (HISTORICAL) AM E Encounter Template Text not used by [facility] Plan of Treatment: Future Appointments (+ 6 months) and Future Tests (+/- 45 days) The Plan of Treatment section includes future care activities for the patient from all PA treatment facilities. This section includes future appointments and future orders which are active, pending or scheduled.Future Appointments This section includes appointments that were scheduled to occur 6 months from the date of the Encounter, up to a maximum of 20 appointments. The [facility] Appointment Date/Time Appointment Type Appointment Facili ty Name Aug 15, 2021 10:30 AM [facility] Aug 18, 2021 04:36 PM AMBULATORY - NONE [facility] Sep 25, 2021 11:30 AM [facility] Oct 05, 2021 02:00 PM [facility] [facility] Oct 05, 2021 03:30 PM AMBULATORY - NONE [facility] Nov 22, 2021 10:00 AM [facility] [place] [facility] Nov 22, 2021 11:30 AM AMBULATORY - NONE [facility] Dec 15, 2021 11:15 AM AMBULATORY - NONE [facility] Active, Pending, and Scheduled Orders This section includes a listing of several types of active, pending, and scheduled orders, including clinic medications orders, diagnostic test orders, procedure orders and consult orders; where the start date of the order is 45 days before the date of the Encounter or 45 days after the date of the Encounter. The data comes from all PA treatment facilities. Test Date/Time Test Type Test Details Facility Name Aug 15, 2021 10:44 AM Consult Order COLONOSCOPY SCREENING OUTP T [facility] Cons Car Repairer's Choice Lab Results: +/- 30 days of the encounter This section includes the Chemistry and Hematology Lab Results on record with PA for the patient. Radiology Reports and Pathology Reports are provided separately, in subsequent sections.Lab Results This section contains the Chemistry/Hematology Results that were resulted 30 days before or 30 days after the date of the Encounter. Date/Time Source Result Type Result - Unit Interpretation Reference Range Comment Aug 15, 2021 11:01 [facility] URINALYSIS W/REFLEX TO Specimen Type: URINE AM CULTURE No comment enter ed. Ordering Provider: DARIN ZHAO Report Released Date/Time: Aug 15, 2021 10:46 AM Reporting Lab: [facility] [address] [facility] [address] Performing Lab: [facility] [address] [facility] [address] URINE COLOR Straw YELLOW SPECIFIC GRAVITY 1.005 1.003-1.030 UROBILINOGEN <2.0 mg/dL <2.0 URINE BILIRUBIN NEG NEG URINE KETONES NEG mg/dL NEG URINE GLUCOSE NEG mg/dL NEG PROTEIN, URINE NEG mg/dL NEG URINE PH 7.0 5-8 CLARITY CLEAR Clear URINE BLOOD NEG NEG NITRITE, URINE NEG NEG WBC SCREEN NEG NEG Aug 15, 2021 11:01 [facility] P4 GLU,BUN,CREAT,LYTES,CA Specimen Type: PLASMA AM Comment: Tests performed on SportsPursuit (405) SN:[id number] Ordering Provider: DARIN ZHAO Report Released Date/Time: Aug 15, 2021 10:46 AM Reporting Lab: [facility] [address] [facility] [address] Performing Lab: [facility] [address] [facility] [address] UREA NITROGEN 18 mg/dL 7-25 SODIUM 138 mmol/L 135-145 POTASSIUM 4.0 mmol/L 3.5-5.0 CHLORIDE 106 mmol/L 100-110 CARBON DIOXIDE 21 mmol/L 20-30 ANION GAP 11 mmol/L 4-16 GLUCOSE 94 mg/dL 65-100 CREATININE 1.04 mg/dl 0.5-1.5 CALCIUM 9.1 mg/dL 8.5-10.5 eGFR 73 mL/min >60 Jun 28, 2021 09:55 [facility] GLYCOHEMOGLOBIN (A1C ONLY) Specimen Type: BLOOD AM Comment: Tests performed on Garay Soccer Referee (405) SN:[id number] Ordering Provider: DARIN ZHAO Report Released Date/Time: Jun 28, 2021 07:11 AM Reporting Lab: [facility] [address] [facility] [address] Performing [facility]: [facility] [address] [facility] [address] HEMOGLOBIN A1C 5.3 % 4.0-5.6 Jun 28, 2021 09:55 AM [facility] IRON+TIBC(P) Specimen Type: PLASMA Comment: Tests performed on Garay Soccer Referee (405) SN:[id number] Ordering Provider: DARIN ZHAO Report Released Date/Time: Jun 28, 2021 07:11 AM Reporting Lab: [place] [facility] [facility] [address] [facility] [address] Performing Lab: [facility] [address] [facility] [address] IRON 59 ug/dL 40-160 TIBC 303 ug/dL 204-475 IRON SATURATION(P) 19 % >15 Jun 28, 2021 09:55 AM [facility] FERRITIN Specimen Type: SERUM Comment: Tests performed on Garay Soccer Referee (405) SN:[id number] Ordering Provider: DARIN ZHAO Report Released Date/Time: Jun 28, 2021 07:11 AM Reporting Lab: [facility] [address] [facility] [address] Performing Lab: [facility] [address] [facility] [address] FERRITIN 287.5 ng/mL 20-300 Jun 28, 2021 09:55 [facility] P4 GLU,BUN,CREAT,LYTES,CA Specimen Type: PLASMA AM Comment: Tests performed on SportsPursuit (405) SN:[id number] Ordering Provider: DARIN ZHAO Report Released Date/Time: Jun 28, 2021 07:11 AM Reporting Lab: [facility] [address] [facility] [address] Performing Lab: [facility] [address] [facility] [address] UREA NITROGEN 21 mg/dL 7-25 SODIUM 137 mmol/L 135-145 POTASSIUM 3.8 mmol/L 3.5-5.0 CHLORIDE 106 mmol/L 100-110 CARBON DIOXIDE 22 mmol/L 20-30 ANION GAP 9 mmol/L 4-16 GLUCOSE 98 mg/dL 65-100 CREATININE 1.07 mg/dl 0.5-1.5 CALCIUM 8.6 mg/dL 8.5-10.5 eGFR 71 mL/min >60 Jun 28, 2021 09:55 AM [facility] CBC PROFILE Specimen Type: BLOOD No comment enter ed. Ordering Provider: DARIN ZHAO Report Released Date/Time: Jun 28, 2021 07:11 AM Reporting Lab: [facility] [address] [facility] [address] Performing Lab: [facility] [address] [facility] [address] WBC 7.6 10*3/uL 4.5-11.0 RBC 5.36 10*6/uL [...] 10*3/uL 0-0 Jun 28, 2021 09:55 AM [facility] LIVER PROFILE Specimen Type: PLASMA Comment: Tests performed on Garay GRUZOBZOR (405) SN:[id number] Ordering Provider: DARIN ZHAO Report Released Date/Time: Jun 28, 2021 07:11 AM Reporting Lab: [facility] [address] [facility] [address] Performing Lab: [facility] [address] [facility] [address] PROTEIN, TOTAL 7.2 g/dL 6.0-8.5 ALBUMIN 3.8 g/dL 3.2-5.0 BILIRUBIN, TOTAL 0.6 mg/dL 0.2-1.2 ALKALINE PHOSPHATASE 68 U/L 40-150 ALT(SGPT) 30 U/L 7-52 AST(SGOT) 21 U/L 5-34 Jun 28, 2021 09:55 [facility] LIPOPROTEIN CHOLESTEROL Specimen Type: PLASMA AM FRACT. PANEL Comment: Tests performed on Garay GRUZOBZOR (405) SN:[id number] Ordering Provider: DARIN ZHAO Report Released Date/Time: Jun 28, 2021 07:11 AM Reporting Lab: [facility] [address] [facility] [address] Performing Lab: [facility] [address] [facility] [address] CHOLESTEROL 184 mg/dL 0-199 TRIGLYCERIDE 90 mg/dL 0-149 HDL CHOLESTEROL 39 mg/dL L >40 LDL CHOLESTEROL (CALC) 127 mg/dl 0-129 Immunizations: All administered on the encounter date This section contains immunizations associated to the Encounter. Immunization Series Date Issued Reaction Comments COVID-19 (Nanapi), MRNA, LNP-S, PF, 30 MCG/0.3 1 Jul 22, 2021 ML DOSE Social History: Smoking Status (Most current) and Tobacco Use (All prior to encounter date) This section includes the most current, and the historical, smoking and tobacco-related health factors from the PA facility where the Encounter took place.Current Smoking Status This section includes the most current smoking, or tobacco-related health factor, from the PA facility where the Encounter took place. Date/Time Current Smoking Status Comment Facility May 02, 2020 03:54 PM VA-TOBACCO NEVER USED [facility] Radiology Reports: +/- 30 days of [...] the Encounter. The data comes from all PA treatment facilities. Date/Time Radiology Report Provider Source Aug 18, 2021 09:28 AM ULTRASOUND RENAL: [facility] GERALD CAMP [id number] -JAN 10 64 M Exm Date: AUG 18, 2021@09:28 Req Phys: EVONNE VALERA Loc: OUTSIDE ULTRASOUND (Req'g Loc) Img Loc : OUTSIDE ULTRASOUND Service : Unknown (Case [id number] COMPLETE) ULTRASO UND RENAL (US Detailed) CPT:02402 Reason for Study: Exam imported from outsny e Clinical History: Original Data for Imported Study Patient Name: Gerald Camp Date: 1960 Sex: M Study Date: 08/18/21 [facility] Time: 09:28:05 Study Description: US BLADDER W/RENAL Referring Physician: Darin Zhao Series 1: 1 US file Series 2: 40 US files, description: US B LADDER W/RENAL Acquisition site: [facility] Report Status: Electronically Filed Da te Reported: AUG 30, 2021 Report: RADIOLOGY PROCEDURE: N O T I C E: SCANNED IN R EPORT THIS EXAMINATION WAS PERFORMED AND INTERP RETED AT A NON-VA FACILITY. To view the report, select the [employer] Menu and choose the Image Display (Viewer) option. Impression: RADIOLOGY PROCEDURE: N O T I C E: SCANNED IN R EPORT THIS EXAMINATION WAS PERFORMED AND INTERP RETED AT A NON-VA FACILITY. To view the report or images, select the [employer] Menu and choose the Image Display [...] the Encounter. The data comes from all PA treatment facilities. Date/Time Pathology Report Provider Source Aug 18, 2021 04:43 PM LR CYTOPATHOLOGY REPORT: FEDE EVANS NIKOS [facility] LOCAL TITLE: LR CYTOPATHOLOGY REPORT STANDARD TITLE: PATHOLOGY REPORT DATE OF NOTE: AUG 18, 2021@16:43:21 ENTRY DATE: AUG 18, 2021@16:43:21 AUTHOR: FEDE EVANS EXP COSIGNER: URGENCY: STATUS: COMPLETED $APHDR Reporting Lab: [facility] [CLIA# [id number]] [address] [place] [address] - - - - - - [...] Specimen (Received Aug 16, 2021 08:58): URINE [id number] - - - - - - - [...] - - POSTOPERATIVE DIAGNOSIS: Surgeon/physician: NICANOR ZHAO RETAIL LEASING AGENT =-=-=-=-=-=-=-=-=-=-=-=-=-=- =-=-=-=-=-=-=-=-=-=-=-=-=-=-=-=-=-=-=-=-=-=-=-=-=-= - - - - - [...] FLUID. SENT WITH CYTOLYT IN 1 TUBE. [facility] [id number] Diagnosis: Satisfactory specimen No malignant cells identified CPT:06271 /chelle/ FEDE EVANS M.D. PATHOLOGIST Signed Aug 18, 2021@16:43 Performing Laboratory: Cytology Report Performed By: [facility] [CLIA# [id number]] [address] [place] [address] $FTR - - - - - - - - - - - - - - - - - - - - - - - - - - - - - - - - - - - - - - - - (End of report) FEED EVANS MD Date Aug 18, 2021 - - - - - - - - - - - - - - - - - - - - - - - - - - - - - - - - - - - - - - - - GERALD CAMP STANDARD FORM 515 ID:[id number] SEX:M :1960 AGE: 61 LO C:NEW HIP PC P: Darin Zhao NP /chelle/ FEDE EVANS M.D. PATHOLOGIST Signed: 08/18/2021 16:43
--- OUTSIDE RECORDS SUMMARY | 2021-12-15 13:04 | XMS_ITS | Encounter Summary ---
:1960 Author Organization Department of [facility] rs Address [address] [place] [address] Care Team Providers Name Role Phone DARIN [...] [place] Oct 08 [id number] [phone] Loc [place] PATIENT FEP INSURANCE L 112 2010 52 5 ICHAEL (DENTAL) [place] PREFERRED BASIC Oct 08 [id number] [phone] Loc [place] PATIENT FEP PROVIDER FAMIL 2010 52 5 ICHAEL ORGANIZAT Y ION (PPO) [place] PREFERRED BASIC Oct 08 [id number] [phone] Loc [place] PATIENT FEDERAL PROVIDER FAMIL 2010 52 4 ICHAEL ORGANIZAT Y ION (PPO) CAREMARK-F PRESCRIPT FEP Oct 08 [id number] [phone] Loc [place] PATIENT EP BCBS ION BCBS 2010 0 52 7 ICHAEL CAREMARK-F PRESCRIPT FEP Oct 08 [id number] [phone] Loc [place] PATIENT EP BCBS ION 2010 0 52 331 ICHAEL CAREMARK-F PRESCRIPT BCBS Oct 08 [id number] [phone] Loc [place] PATIENT EP BCBS ION FEP 2010 0 52 331 ICHAEL PLAN HIGHMARK PREFERRED SUKHI Oct 08 [id number] [phone] Loc [place] PATIENT BLUE PROVIDER AL* 2010 0 52 6 ICHAEL CROSS* ORGANIZAT ION (PPO) HIGHMARK DENTAL SUKHI Oct 08 [id number] [phone] Loc MARIE PATIENT DENTAL INSURANCE AL 2010 52 7 ICHAEL (FEP) DENTA L HORIZON PREFERRED BASIC Oct 08 [id number] [phone] Loc [place] PATIENT BCBS FEP* PROVIDER FAMIL 2010 52 8 ICHAEL ORGANIZAT Y ION (PPO) INDEPENDEN PREFERRED BASIC Oct 08 [id number] [phone] Loc [place] PATIENT CE BLUE PROVIDER FAMIL 2010 52 0 ICHAEL CROSS ORGANIZAT Y (FEP) ION (PPO) Selected Encounter This section includes the information on record at DC for the Encounter. Date/Time Encounter Type Encounter Reason Provider Source Description Jun 28, 2021 ELECTROCARDIOGRAM EKG ICD-10-CM R00.1 ISRAEL BALDWIN 10:20 AM REPORT Bradycardia, TT unspecified with Provider Comments: Bradycardia, unspecified IHE Encounter Template Text not used by VA Assessments - Encounter Diagnoses This section includes the primary and secondary diagnoses documented forthe Encounter. Date/Time Primary/Secondary Diagnosis Name Provider Source Diagnosis Jul 11, 2021 PRIMARY Bradycardia, MANNY MONAE 06:38 AM unspecified [facility] Plan of Treatment: Future Appointments (+ 6 months) and Future Tests (+/- 45 days) The Plan of Treatment section includes future care activities for the patient from all DC treatment facilities. This section includes future appointments and future orders which are active, pending or scheduled.Future Appointments This section includes appointments that were scheduled to occur 6 months from the date of the Encounter, up to a maximum of 20 appointments. The data comes [facility] Appointment Date/Time Appointment Type Appointment Facili ty Name Aug 15, 2021 10:30 AM AMBULATORY - MEDICINE [facility] Aug 18, 2021 04:36 PM AMBULATORY - NONE [facility] Sep 25, 2021 11:30 AM AMBULATORY - MEDICINE [facility] Oct 05, 2021 02:00 PM AMBULATORY - MEDICINE [facility] Oct 05, 2021 03:30 PM [facility]ORY - NONE [place] [facility] Nov 22, 2021 10:00 AM [facility] [place] [facility] Nov 22, 2021 11:30 AM AMBUL[facility]ORY - NONE [place] [facility] Dec 15, 2021 11:15 AM AMBULATORY - NONE [facility] Surgical Procedures: All associated to the encounter This section includes all Surgical Procedures and Surgical Procedure Notes associated to the Encounter.Surgical Procedures This section includes all Surgical Procedures associated to the Encounter.Surgical Procedure Date/Time Procedure Procedure Type Procedure Provider Source Qualifiers Jun 28, 2021 ELECTROCARDIOGRAM ELECTROCARDIOGRAM DENNY, ISRAEL WHITE 10:20 AM REPORT REPORT [facility] Surgical Notes There are no notes associated with this procedure. Lab Results: +/- 30 days of the encounter This section includes the Chemistry and Hematology Lab Results on record with VA for the patient. Radiology Reports and Pathology Reports are provided separately, in subsequent sections.Lab Results This section contains the Chemistry/Hematology Results that were resulted 30 days before or 30 days after the date of the Encounter. Date/Time Source Result Type Result - Unit Interpretation Reference Range Comment Jun 28, 2021 09:55 [facility] GLYCOHEMOGLOBIN (A1C ONLY) Specimen Type: BLOOD AM Comment: Tests performed on Garay Downtyme (405) SN:[id number] Ordering Provider: DARIN ZHAO Report Released Date/Time: Jun 28, 2021 07:11 AM Reporting Lab: [facility] [address] [facility] [address] Performing Lab: [facility] [address] [facility] [address] HEMOGLOBIN A1C 5.3 % 4.0-5.6 Jun 28, 2021 09:55 AM [facility] IRON+TIBC(P) Specimen Type: PLASMA Comment: Tests performed on Garay Downtyme (405) SN:[id number] Ordering Provider: DARIN ZHAO Report Released Date/Time: Jun 28, 2021 07:11 AM Reporting Lab: [facility] [address] [facility] [address] Performing Lab: [facility] [address] [facility] [address] IRON 59 ug/dL 40-160 TIBC 303 ug/dL 204-475 IRON SATURATION(P) 19 % >15 Jun 28, 2021 09:55 AM [facility] FERRITIN Specimen Type: SERUM Comment: Tests performed on Revegy (405) SN:[id number] Ordering Provider: DARIN ZHAO Report Released Date/Time: Jun 28, 2021 07:11 AM Reporting Lab: [facility] [address] [facility] [address] Performing Lab: [facility] [address] [facility] [address] FERRITIN 287.5 ng/mL 20-300 Jun 28, 2021 09:55 [facility] P4 GLU,BUN,CREAT,LYTES,CA Specimen Type: PLASMA AM Comment: Tests performed on Revegy (405) SN:[id number] Ordering Provider: DARIN ZHAO Report Released Date/Time: Jun 28, 2021 07:11 AM Reporting [facility] [address] [facility] [address] Performing Lab: [facility] [address] [facility] [address] UREA NITROGEN 21 mg/dL 7-25 SODIUM 137 mmol/L 135-145 POTASSIUM 3.8 mmol/L 3.5-5.0 CHLORIDE 106 mmol/L 100-110 CARBON DIOXIDE 22 mmol/L 20-30 ANION GAP 9 mmol/L 4-16 GLUCOSE 98 mg/dL 65-100 CREATININE 1.07 mg/dl 0.5-1.5 CALCIUM 8.6 mg/dL 8.5-10.5 eGFR 71 mL/min >60 Jun 28, 2021 09:55 AM [facility] CBC PROFILE Specimen Type: BLOOD No comment enter ed. Ordering Provider: DARIN ZHAO Report Released Date/Time: Jun 28, 2021 07:11 AM Reporting [facility] [address] [facility] [address] [facility] [address] [facility] [address] WBC 7.6 10*3/uL 4.5-11.0 RBC 5.36 10*6/uL [...] 10*3/uL 0-0 Jun 28, 2021 09:55 AM [facility] LIVER PROFILE Specimen Type: PLASMA Comment: Tests performed on Revegy (405) SN:[id number] Ordering Provider: DARIN ZHAO Report Released Date/Time: Jun 28, 2021 07:11 AM Reporting [facility] [address] [facility] [address] [facility] [address] [facility] [address] PROTEIN, TOTAL 7.2 g/dL 6.0-8.5 ALBUMIN 3.8 g/dL 3.2-5.0 BILIRUBIN, TOTAL 0.6 mg/dL 0.2-1.2 ALKALINE PHOSPHATASE 68 U/L 40-150 ALT(SGPT) 30 U/L 7-52 AST(SGOT) 21 U/L 5-34 Jun 28, 2021 09:55 [facility] LIPOPROTEIN CHOLESTEROL Specimen Type: PLASMA AM FRACT. PANEL Comment: Tests performed on Garay Line Service Technician (405) SN:[id number] Ordering Provider: DARIN ZHAO Report Released Date/Time: Jun 28, 2021 07:11 AM Reporting Lab: [facility] [address] [facility] [address] Performing Lab: [facility] [address] [facility] [address] CHOLESTEROL 184 mg/dL 0-199 TRIGLYCERIDE 90 mg/dL 0-149 HDL CHOLESTEROL 39 mg/dL L >40 LDL CHOLESTEROL (CALC) 127 mg/dl 0-129 Social History: Smoking Status (Most current) and Tobacco Use (All prior to encounter date) This section includes the most current, and the historical, smoking and tobacco-related health factors from the DC facility where the Encounter took place.Current Smoking Status This section includes the most current smoking, or tobacco-related health factor, from the DC facility where the Encounter took place. Date/Time Current Smoking Status Comment Facility May 02, 2020 03:54 PM VA-TOBACCO NEVER USED [facility]
--- OUTSIDE RECORDS SUMMARY | 2021-12-15 13:05 | XMS_ITS | Encounter Summary ---
:1960 Author Organization Department of [facility] rs Address [address] [place] [address] Care Team Providers Name Role Phone DARIN [...] [place] Oct 08 [id number] [phone] Loc [place] PATIENT FEP INSURANCE L 112 2010 52 5 ICHAEL (DENTAL) [place] PREFERRED BASIC Oct 08 [id number] [phone] Loc [place] PATIENT FEP PROVIDER FAMIL 2010 52 5 ICHAEL ORGANIZAT Y ION (PPO) BCBS OF [place] PREFERRED BASIC Oct 08 [id number] [phone] Loc [place] PATIENT FEDERAL PROVIDER FAMIL 2010 52 4 ICHAEL ORGANIZAT Y ION (PPO) [place]-F PRESCRIPT FEP Oct 08 [id number] [phone] Loc [place] PATIENT EP BCBS ION BCBS 2010 0 52 7 ICHAEL [place]ARK-F PRESCRIPT FEP Oct 08 [id number] [phone] Loc [place] PATIENT EP BCBS ION 2010 0 52 331 ICHAEL [place]ARK-F PRESCRIPT BCBS Oct 08 [id number] [phone] Loc [place] PATIENT EP BCBS ION FEP 2010 0 52 331 ICHAEL PLAN HIGHMARK PREFERRED SUKHI Oct 08 [id number] [phone] Loc [place] PATIENT BLUE PROVIDER AL* 2010 0 52 6 ICHAEL CROSS* ORGANIZAT ION (PPO) HIGHMARK DENTAL SUKHI Oct 08 [id number] [phone] Loc MARIE PATIENT DENTAL INSURANCE AL 2010 52 7 ICHAEL (FEP) DENTA L HORIZON PREFERRED BASIC Oct 08 [id number] [phone] KURT IM PATIENT BCBS FEP* PROVIDER FAMIL 2010 52 8 ICHAEL ORGANIZAT Y ION (PPO) INDEPENDEN PREFERRED BASIC Oct 08 [id number] [phone] Loc [place] PATIENT CE BLUE PROVIDER FAMIL 2010 52 0 ICHAEL CROSS ORGANIZAT Y (FEP) ION (PPO) Selected Encounter This section includes the information on record at MD for the Encounter. Date/Time Encounter Type Encounter Reason Provider Source Description Jun 26, 2021 PRO PHONE TELEPHONE TRIAGE ICD-10-CM NOY AUGUSTE 11:31 AM CALL 11-20 MIN M25.512 Pain INE L in left shoulder with Provider Comments: Pain in left Shoulder IHE Encounter Template Text not used by [facility] Assessments - Encounter Diagnoses This section includes the primary and secondary diagnoses documented forthe Encounter. Date/Time Primary/Secondary Diagnosis Name Provider Source Diagnosis Jun 26, 2021 PRIMARY Pain in left JAMES AUGUSTE 11:31 AM shoulder NE L [place] [facility] Plan of Treatment: Future Appointments (+ 6 months) and Future Tests (+/- 45 days) The Plan of Treatment section includes future care activities for the patient from all MD treatment facilities. This section includes future appointments and future orders which are active, pending or scheduled.Future Appointments This section includes appointments that were scheduled to occur 6 months from the date of the Encounter, up to a maximum of 20 appointments. The data [facility]. Appointment Date/Time Appointment Type Appointment Facili ty Name Jun 28, 2021 10:00 AM [facility] Jun 28, 2021 10:30 AM [facility] Aug 15, 2021 10:30 AM [facility] Aug 18, 2021 04:36 PM [place] [facility] Sep 25, 2021 11:30 AM [facility]UL[facility] MED[facility] Oct 05, 2021 02:00 PM [place] [facility] Oct 05, 2021 03:30 PM [place]ORY - NONE [place] [facility] Nov 22, 2021 10:00 AM [place] [facility] Nov 22, 2021 11:30 AM [place] - [place]ONE [place] [facility] Dec 15, 2021 11:15 AM [place]ORY - NONE [place] [facility] Surgical Procedures: All associated to the encounter This section includes all Surgical Procedures and Surgical Procedure Notes associated to the Encounter.Surgical Procedures This section includes all Surgical Procedures associated to the Encounter.Surgical Procedure Date/Time Procedure Procedure Type Procedure Provider Source Qualifiers Jun 26, 2021 HC PRO PHONE HC PRO PHONE LANCE AUGUSTE 11:31 AM CALL 11-20 MIN CALL 11-20 MIN [place] [facility] Surgical Notes There are no notes associated with this procedure. Lab Results: +/- 30 days of the encounter This section includes the Chemistry and Hematology Lab Results on record with MD for the patient. Radiology Reports and Pathology Reports are provided separately, in subsequent sections.Lab Results This section contains the Chemistry/Hematology Results that were resulted 30 days before or 30 days after the date of the Encounter. Date/Time Source Result Type Result - Unit Interpretation Reference Range Comment Jun 28, 2021 09:55 [facility] GLYCOHEMOGLOBIN (A1C ONLY) Specimen Type: BLOOD AM Comment: Tests performed on [employer] (405) SN:[id number] Ordering Provider: DARIN ZHAO Report Released Date/Time: Jun 28, 2021 07:11 AM Reporting Lab: [facility] [address] [place] [facility] [place] [address] Performing Lab: [facility] [address] [facility] [address] HEMOGLOBIN A1C 5.3 % 4.0-5.6 Jun 28, 2021 09:55 AM [facility] IRON+TIBC(P) Specimen Type: PLASMA Comment: Tests performed on [employer] (405) SN:[id number] Ordering Provider: DARIN ZHAO Report Released Date/Time: Jun 28, 2021 07:11 AM Reporting Lab: [facility] [address] [facility] [address] Performing Lab: [facility] [address] [facility] [address] IRON 59 ug/dL 40-160 TIBC 303 ug/dL 204-475 IRON SATURATION(P) 19 % >15 Jun 28, 2021 09:55 AM [facility] FERRITIN Specimen Type: SERUM Comment: Tests performed on [employer] (405) SN:[id number] Ordering Provider: DARIN ZHAO Report Released Date/Time: Jun 28, 2021 07:11 AM Reporting Lab: [facility] [address] [facility] [address] Performing Lab: [facility] [address] [facility] [address] FERRITIN 287.5 ng/mL 20-300 Jun 28, 2021 09:55 [facility] P4 GLU,BUN,CREAT,LYTES,CA Specimen Type: PLASMA AM Comment: Tests performed on [employer] (405) SN:[id number] Ordering Provider: DARIN ZHAO Report Released Date/Time: Jun 28, 2021 07:11 AM Reporting Lab: [facility] [address] [facility] [address] Performing Lab: [facility] [address] [facility] [address] UREA NITROGEN 21 mg/dL 7-25 SODIUM 137 mmol/L 135-145 POTASSIUM 3.8 mmol/L 3.5-5.0 CHLORIDE 106 mmol/L 100-110 CARBON DIOXIDE 22 mmol/L 20-30 ANION GAP 9 mmol/L 4-16 GLUCOSE 98 mg/dL 65-100 CREATININE 1.07 mg/dl 0.5-1.5 CALCIUM 8.6 mg/dL 8.5-10.5 eGFR 71 mL/min >60 Jun 28, 2021 09:55 AM [facility] CBC PROFILE Specimen Type: BLOOD No comment enter ed. Ordering Provider: DARIN ZHAO Report Released Date/Time: Jun 28, 2021 07:11 AM Reporting Lab: [facility] [address] [facility] [address] Performing Lab: [facility] [address] [facility] [address] WBC 7.6 10*3/uL 4.5-11.0 RBC 5.36 10*6/uL [...] 10*3/uL 0-0 Jun 28, 2021 09:55 AM [facility] LIVER PROFILE Specimen Type: PLASMA Comment: Tests performed on [employer] (405) SN:[id number] Ordering Provider: DARIN ZHAO Report Released Date/Time: Jun 28, 2021 07:11 AM Reporting Lab: [facility] [address] [facility] [address] Performing Lab: [facility] [address] [facility] [address] PROTEIN, TOTAL 7.2 g/dL 6.0-8.5 ALBUMIN 3.8 g/dL 3.2-5.0 BILIRUBIN, TOTAL 0.6 mg/dL 0.2-1.2 ALKALINE PHOSPHATASE 68 U/L 40-150 ALT(SGPT) 30 U/L 7-52 AST(SGOT) 21 U/L 5-34 Jun 28, 2021 09:55 [facility] LIPOPROTEIN CHOLESTEROL Specimen Type: PLASMA AM FRACT. PANEL Comment: Tests performed on [employer] 405 SN:[id number] Ordering Provider: DARIN ZHAO Report Released Date/Time: Jun 28, 2021 07:11 AM Reporting Lab: [facility] [address] [facility] [address] Performing Lab: [facility] [address] [facility] [address] CHOLESTEROL 184 mg/dL 0-199 TRIGLYCERIDE 90 mg/dL 0-149 HDL CHOLESTEROL 39 mg/dL L >40 LDL CHOLESTEROL (CALC) 127 mg/dl 0-129 Social History: Smoking Status (Most current) and Tobacco Use (All prior to encounter date) This section includes the most current, and the historical, smoking and tobacco-related health factors from the MD facility where the Encounter took place.Current Smoking Status This section includes the most current smoking, or tobacco-related health factor, from the MD facility where the Encounter took place. Date/Time Current Smoking Status Comment Facility May 02, 2020 03:54 PM VA-TOBACCO NEVER USED [facility]iva [facility] Encounter Notes: All associated encounter notes This section contains the clinical notes associated to the Encounter. Date/Time Encounter Note(s) Provider Source Jun 26, 2021 11:31 AM TELEPHONE ENCOUNTER NOTE: LIZETTE AUGUSTE [facility] LOCAL TITLE: [facility] STANDARD TITLE: TELEPHONE ENCOUNTER NOTE DATE OF NOTE: JUN 26, 2021@11:31:46 ENTRY DATE: JUN 26, 2021@11:41:30 AUTHOR: SAMANTHA AUGUSTE EXP COSIGNER: URGENCY: STATUS: COMPLETED [facility] Has ADDEND A Type of call: SYMPTOM. Caller Response: CLN CALL RESOLVED FINANCIAL DISCLAIMER The following disclaimer was read to the caller: advised that recommendation for care pro vided during the call does not constitute an approval or authorization for payment by the MD or its staff. Triage Staff provided the [facility] Call Center [phone] number and instruction for notifica tion of ER visit within 72 hours. The patient, GERALD MARIE ([id number]) called the call center. Comments: Left shoulder pain ongoing. Vet over lifted and pulled his back muscle trying to lift a freezer by himself . Vet played 18 holes of golf about 3 weeks ago and shoulder would not work the next day and he has been in pain ever since. Vet having kidney/stomach pain again. Vet having karla lly bad heartburn frequently especially at night. Tumms helps a bit but is no t taking it away. Evaluation/Management Code: HC PRO PHONE CALL 11 -20 MIN ([id number]). Original call started at: JUN 26, 2021 @ 10:45 ( Call was suspended) - DIMAS LOERA JUN 26, 2021@10:45:56 - JUN 26, 2021@10:52:51 Ending at: 06/26/2021 @ 11:40:30 AM Length: 15 minutes. (Call was suspended. This ca ll length is the total amount of time spent active in [employer] Record Manage r.) Author: SAMANTHA AUGUSTE Caller Area: [facility] The following identifiers were used to verify th is patient: SSN. Chief Complaint: Shoulder Injury Triage Note Phone Triage Mon Jun 26 2021 11:34:35 GMT-0400 (Formerly [facility] Time) Demographics 61 y/o Male Results CC: Shoulder Injury Nurse Recommendation: Now TED Suggestion: 2-3 Days Nurse Recommended Follow-up Location: Emerge ncy department, MD TED Suggested Follow-up Location: Clinic, [facility], consider virtual care Values and Measures Pain scale: 7 Duration of CC: 3 Weeks Positive Responses HPI: shoulder pain, moderate to severe Negative Responses Denies: HPI: arm pain, unable to move arm Denies: HPI: bony tenderness, severe, should er Denies: HPI: numbness, arm or hand, since th e injury Denies: HPI: shoulder deformity Denies: HPI: shoulder erythema, worsening, s zi the injury Denies: HPI: shoulder injury, within past 2 days Denies: HPI: shoulder pain, severe Denies: HPI: weakness, arm or hand, since th e injury Denies: HPI: wound, skin penetration Education Verbal Education Provided for: Shoulder Sprain Home Care Shoulder Sprain Home Care Pain in Adults Shoulder Sprain Home Care Warning Signs Nurse Notes: Pt reports left shoulder pain for the past three weeks. Pt reports that he strained it while golfing. Pt also reports inter mittant intense CP and heartburn. Pt reports that h e has to sit down for several hours to relieve this pain. Advised pt go to the ED. Pt declin chelle at this time. Community care number given to pt who reports that he may go if the pa in gets bad. Will forward to the team for F/U. Class Code: Pain in left Shoulder. Contact Patient's Email Address: [email or web address] /chelle/ SAMANTHA AUGUSTE Clinical Contact Center doctor of nurse anesthesia practice Signed: 06/26/2021 11:41 Receipt Acknowledged By: * AWAITING SIGNATURE * DARIN ZHAO 06/27/2021 12:23 /chelle/ AIDE LLOYD REGISTERED NURSE 06/27/2021 ADDENDUM STATUS: COMPLETED Tried calling [place] to f/u. Acute openings are available in the afternoon. No answer, left hipaa compliant [facility] with clin ic hours and clinic contact information. /chelle/ AIDE LLOYD REGISTERED NURSE Signed: 06/27/2021 12:23
--- OUTSIDE RECORDS SUMMARY | 2021-12-15 13:05 | XMS_ITS ---
:1960 Author Organization Department of [facility] rs Address [address] [place] [address] Care Team Providers Name Role Phone DARIN [...] [place] Oct 08 [id number] [phone] Loc [place] PATIENT FEP INSURANCE L 112 2010 52 5 ICHAEL (DENTAL) [place] PREF[place]ED BAS[place] Oct 08 [id number] [phone] Loc [place] PATIENT FEP PROVIDER FAMIL 2010 52 5 ICHAEL ORGANIZAT Y ION (PPO) [place] PREFERRED [place] Oct 08 [id number] [phone] Loc [place] PATIENT FEDERAL PROVIDER FAMIL 2010 52 4 ICHAEL ORGANIZAT Y ION (PPO) [place]-F PRESCRIPT FEP Oct 08 [id number] [phone] Loc [place] PATIENT EP BCBS ION BCBS 2010 0 52 7 ICHAEL [place]ARK-F PRESCRIPT FEP Oct 08 [id number] [phone] Loc [place] PATIENT EP BCBS ION 2010 0 52 331 ICHAEL [place]ARK-F PRESCRIPT BCBS Oct 08 [id number] [phone] Loc [place] PATIENT EP BCBS ION FEP 2010 0 52 331 ICHAEL PLAN [employer]IGHMARK PREFERRED SUKHI Oct 08 [id number] [phone] Loc [place] PATIENT BLUE PROVIDER AL* 2010 0 52 6 ICHAEL CROSS* ORGANIZAT ION (PPO) HIGHMARK DENTAL SUKHI Oct 08 [id number] [phone] Loc MARIE PATIENT DENTAL INSURANCE AL 2010 52 7 ICHAEL (FEP) DENTA L HORIZON PREFERRED BASIC Oct 08 [id number] [phone] Loc [place] PATIENT BCBS FEP* PROVIDER FAMIL 2010 52 8 ICHAEL ORGANIZAT Y ION (PPO) INDEPENDEN PREFERRED BASIC Oct 08 [id number] [phone] Loc [place] PATIENT CE BLUE PROVIDER FAMIL 2010 52 0 ICHAEL CROSS ORGANIZAT Y (FEP) ION (PPO) Selected Encounter This section includes the information on record at [place] for the Encounter. Date/Time Encounter Type Encounter Description Reason Provider Source Jun 22, 2021 12:29 Outpatient Encounter TELEPHONE TRIAGE PM IHE Encounter Template Text not used by VA Plan of Treatment: Future Appointments (+ 6 months) and Future Tests (+/- 45 days) The Plan of Treatment section includes future care activities for the patient from all [place] treatment facilities. This section includes future appointments and future orders which are active, pending or scheduled.Future Appointments This section includes appointments that were scheduled to occur 6 months from the date of the Encounter, up to a maximum of 20 appointments. The [facility] Appointment Date/Time Appointment Type Appointment Facili ty Name Jun 28, 2021 10:00 AM [facility] Jun 28, 2021 10:30 AM [facility] Aug 15, 2021 10:30 AM [facility] Aug 18, 2021 04:36 PM [facility]ONE [facility] Sep 25, 2021 11:30 AM [facility] Oct 05, 2021 02:00 PM [place] [place] [facility] Oct 05, 2021 03:30 PM [facility] [place] [facility] Nov 22, 2021 10:00 AM [place] [facility] Nov 22, 2021 11:30 AM [facility] [place] [facility] [place] [facility] Dec 15, 2021 11:15 AM [facility] [place] [facility] [place] [facility] Lab Results: +/- 30 days of the [...] Reference Range Comment Jun 28, 2021 09:55 [facility] GLYCOHEMOGLOBIN (A1C ONLY) Specimen Type: BLOOD AM Comment: Tests performed on [employer] (405) SN:[id number] Ordering Provider: DARIN ZHAO Report Released Date/Time: Jun 28, 2021 07:11 AM Reporting Lab: [facility] [address] [facility] [address] Performing Lab: [facility] [address] [facility] [address] HEMOGLOBIN A1C 5.3 % 4.0-5.6 Jun 28, 2021 09:55 AM [facility] IRON+TIBC(P) Specimen Type: PLASMA Comment: Tests performed on [employer] (405) [id number] Ordering Provider: DARIN ZHAO Report Released Date/Time: Jun 28, 2021 07:11 AM Reporting Lab: [facility] [address] [place] [facility] [place] [address] Performing Lab: [facility] [address] [place] [facility] [place] [place] [address] IRON 59 ug/dL 40-160 TIBC 303 ug/dL 204-475 IRON SATURATION(P) 19 % >15 Jun 28, 2021 09:55 AM [facility] FERRITIN Specimen Type: SERUM Comment: Tests performed on [employer] (405) SN:[id number] Ordering Provider: DARIN ZHAO Report Released Date/Time: Jun 28, 2021 07:11 AM Reporting Lab: [facility] [address] [place] [facility] [place] [address] Performing Lab: [facility] [address] [place] [facility] [place] [address] FERRITIN 287.5 ng/mL 20-300 Jun 28, 2021 09:55 [facility] P4 GLU,BUN,CREAT,LYTES,CA Specimen Type: PLASMA AM Comment: Tests performed on [employer] (405) SN:[id number] Ordering Provider: DARIN ZHAO Report Released Date/Time: Jun 28, 2021 07:11 AM Reporting Lab: [facility] [address] [facility] [address] Performing Lab: [facility] [address] [facility] [address] UREA NITROGEN 21 mg/dL 7-25 SODIUM 137 mmol/L 135-145 POTASSIUM 3.8 mmol/L 3.5-5.0 CHLORIDE 106 mmol/L 100-110 CARBON DIOXIDE 22 mmol/L 20-30 ANION GAP 9 mmol/L 4-16 GLUCOSE 98 mg/dL 65-100 CREATININE 1.07 mg/dl 0.5-1.5 CALCIUM 8.6 mg/dL 8.5-10.5 eGFR 71 mL/min >60 Jun 28, 2021 09:55 AM [facility] CBC PROFILE Specimen Type: BLOOD No comment enter ed. Ordering Provider: DARIN ZHAO Report Released Date/Time: Jun 28, 2021 07:11 AM Reporting Lab: [facility] [address] [facility] [address] Performing Lab: [facility] [address] [facility] [address] WBC 7.6 10*3/uL 4.5-11.0 RBC 5.36 10*6/uL [...] 10*3/uL 0-0 Jun 28, 2021 09:55 AM [facility] LIVER PROFILE Specimen Type: PLASMA Comment: Tests performed on [employer] (405) SN:[id number] Ordering Provider: DARIN ZHAO Report Released Date/Time: Jun 28, 2021 07:11 AM Reporting Lab: [place] [facility] [address] [facility] [address] Performing Lab: [place] [facility] [address] [facility] [address] PROTEIN, TOTAL 7.2 g/dL 6.0-8.5 ALBUMIN 3.8 g/dL 3.2-5.0 BILIRUBIN, TOTAL 0.6 mg/dL 0.2-1.2 ALKALINE PHOSPHATASE 68 U/L 40-150 ALT(SGPT) 30 U/L 7-52 AST(SGOT) 21 U/L 5-34 Jun 28, 2021 09:55 [facility] LIPOPROTEIN CHOLESTEROL Specimen Type: PLASMA AM FRACT. PANEL Comment: Tests performed on [employer] (405) SN:[id number] Ordering Provider: DARIN ZHAO Report Released Date/Time: Jun 28, 2021 07:11 AM Reporting Lab: [facility] [facility] [address] [facility] [address] Performing Lab: [place] [facility] [address] [facility] [address] CHOLESTEROL 184 mg/dL 0-199 TRIGLYCERIDE 90 mg/dL 0-149 HDL CHOLESTEROL 39 mg/dL L >40 LDL CHOLESTEROL (CALC) 127 mg/dl 0-129 Social History: Smoking Status (Most current) and Tobacco Use (All prior to encounter date) This section includes the most current, and the historical, smoking and tobacco-related health factors from the [facility] facility where the Encounter took place.Current Smoking Status This section includes the most current smoking, or tobacco-related health factor, from the [facility] facility where the Encounter took place. Date/Time Current Smoking Status Comment Facility May 02, 2020 03:54 PM VA-TOBACCO NEVER USED [facility] Encounter Notes: All associated encounter notes This section contains the clinical notes associated to the Encounter. Date/Time Encounter Note(s) Provider Source Jun 22, 2021 12:29 PM TELEPHONE ENCOUNTER NOTE: STEFF COLBERT T LOCAL TITLE: VISN 1 CCC ACTION REQUIRED [facility] STANDARD TITLE: TELEPHONE ENCOUNTER NOTE DATE OF NOTE: JUN 22, 2021@12:29:38 ENTRY DATE: JUN 22, 2021@12:32:27 AUTHOR: STEFF COLBERT EXP COSIGNER: URGENCY: STATUS: COMPLETED VISN 1 CCC ACTION REQUIRED Has ADDENDA * Type of call: ADMINISTRATIVE. Caller Response: ADM CALL RESOLVED The patient, GERADL MARIE ([id number]) called the call center. Comments: pt is requesting a call back to schedule a long overdue appt - he said that he is also been having stomach issues lately Evaluation/Management Code: HC PRO PHONE CALL 5- 10 MIN ([id number]). Starting at: 06/22/2021 @ 12:29:38 PM Ending at: 06/22/2021 @ 12:31:20 PM Length: 1 minutes. Author: STEFF COLBERT Caller Area: [facility] The following identifiers were used to verify th is patient: SSN. Chief Complaint: Not applicable to call. Class Code: Other specified counseling. Contact Patient's Email Address: [email or web address] /[email or web address]/ STEFF COLBERT [employer] Supervisor Signed: 06/22/2021 12:32 Receipt Acknowledged By: 06/26/2021 11:07 /es/ WILLY DESAI 06/26/2021 11:08 /es/ LEEANN LEDBETTER LPN 06/26/2021 ADDENDUM STATUS: COMPLETED # - negotiated future appt for AVV Aug 2021 - also in conversation reports has had labs about a year ago - reports chest tightness over past several months, often throug hout day but not every day - left shoulder trouble - pain off and on also past couple months - kidney seem to also be getting worse thought surgery years ago was to fix - sometimes pees a lot - may lead to stomach pain /es/ WILLY DESAI Signed: 06/26/2021 11:07 Receipt Acknowledged By: 06/26/2021 11:32 /chelle/ LEEANN LEDBETTER LPN 06/26/2021 ADDENDUM STATUS: COMPLETED Patient reports a lot of hea rtburn/indigestion lately. Has been eating a lot of tums. Reports he does not ea t a lot of spicy food. Grilled chicken, grains, some vegetables. East a lot of salads this time of ye ar. Has had issues with hyperlip idemia in the past. He states he topped taking meds for this over 10 years ago. Last labs AUG 2020. Reports SOB doing simple tas ks I am getting old. Does not notice this happens at the same time as his orion st tightness. Reports he does have headaches in the middle of the night at times. Denies headaches w ith exertion. Urinating frequntly. Patient reports he hydrates well. Blood pressure: patient repo rts he is unsure of his blood pressure at this time. States it was monitored clos [facility] when he was having issues with his kidney. Last B/P Aug 2020. No chest pain at this time, no SOB at this time. As per RN/PCP present local urgent/emergent care if experiencing chest pain accompanied with SOB, headaches etc. Patient und erstands and agrees with the plan. Anuual visit w/ PCP negotiated with [facility] and bruce emilyled for 08/15. Nurse visit and labs 06/28 for EKG, labs and vit al signs/reminders. PCP to enter labs and EKG consult as appropriate . /chelle/ LEEANN LEDBETTER LPN Signed: 06/26/2021 11:33 Receipt Acknowledged By: * AWAITING SIGNATURE * DARIN ZHAO
--- OUTSIDE RECORDS SUMMARY | 2021-12-15 13:05 | XMS_ITS | Encounter Summary ---
:1960 Author Organization Department of [facility] rs Address [address] [place] [address] Care Team Providers Name Role Phone FLOWERSTIVEN DARIN Primary Care Provider Unavailable Insurance Providers: [...] [place] Oct 08 [id number] [phone] Loc [place] PATIENT FEP INSURANCE L 112 2010 52 5 ICHAEL (DENTAL) [place] PREF[place]ED BAS[place] Oct 08 [id number] [phone] Loc [place] PATIENT FEP PROVIDER FAMIL 2010 52 5 ICHAEL ORGANIZAT Y ION (PPO) [place]BS OF [place] PREFERRED BASIC Oct 08 [id number] [phone] Loc [place] PATIENT FEDERAL PROVIDER FAMIL 2010 52 4 ICHAEL ORGANIZAT Y ION (PPO) CAREMARK-F PRESCRIPT FEP Oct [id number] Loc [place] PATIENT EP BCBS ION BCBS 2010 0 52 7 ICHAEL CAREMARK-F PRESCRIPT FEP Oct 08 [id number] [phone] Loc [place] PATIENT EP BCBS ION 2010 0 52 331 ICHAEL CAREMARK-F PRESCRIPT BCBS Oct [id number] [phone] Loc [place] PATIENT EP BCBS ION FEP 2010 0 52 331 ICHAEL PLAN HIG[place] PREFERRED SUKHI Oct 08 [id number] [phone] ANABEL BOWSERM PATIENT BLUE PROVIDER AL* 2010 0 52 6 ICHAEL CROSS* ORGANIZAT ION (PPO) HIGHMARK DENTAL SUKHI Oct 08 [id number] [phone] Loc MARIE PATIENT DENTAL INSURANCE AL 2010 52 7 ICHAEL (FEP) DENTA L HORIZON PREFERRED BASIC Oct 08 [id number] [phone] KURT I,M PATIENT BCBS FEP* PROVIDER FAMIL 2010 52 8 ICHAEL ORGANIZAT Y ION (PPO) INDEPENDEN PREFERRED BASIC Oct 08 [id number] [phone] Loc [place] PATIENT CE BLUE PROVIDER FAMIL 2010 52 0 ICHAEL CROSS ORGANIZAT Y (FEP) ION (PPO) Selected Encounter This section includes the information on record at [place] for the Encounter. Date/Time Encounter Type Encounter Reason Provider Source Description Jun 28, 2021 OFFICE O/P EST PRIMARY ICD-10-CM AIDE LLOYD 10:30 AM MINIMAL PROB CARE/MEDICINE M79.632 Pain V in left forearm with Provider Comments: Pain in left Forearm IHE Encounter Template Text not used by VA Assessments - Encounter Diagnoses This section includes the primary and secondary diagnoses documented forthe Encounter. Date/Time Primary/Secondary Diagnosis Name Provider Source Diagnosis Jun 28, 2021 PRIMARY Pain in left [facility] 10:44 AM forearm [facility] Jun 28, 2021 SECONDARY Migraine, unsp, [facility] 10:44 AM not intractable, V CLINIC without status migrainosus Jun 28, 2021 SECONDARY Other chest pain [facility] V A 10:44 AM V CLINIC Jun 28, 2021 SECONDARY Overexertion from [facility] 10:44 AM strenuous movement V CLINIC or load, init Plan of Treatment: Future Appointments (+ 6 months) and Future Tests (+/- 45 days) The Plan of Treatment section includes future care activities for the patient from all [facility] treatment facilities. This section includes future appointments and future orders which are active, pending or scheduled.Future Appointments This section includes appointments that were scheduled to occur 6 months from the date of the Encounter, up to a maximum of 20 appointments. The data comes from all [facility]. Appointment Date/Time Appointment Type Appointment Facili ty Name Aug 15, 2021 10:30 AM AMBULATORY - MEDICINE [facility] Aug 18, 2021 04:36 PM AMBULATORY - NONE [facility] Sep 25, 2021 11:30 AM AMBULATORY - MEDICINE [facility] Oct 05, 2021 02:00 PM AMBULATORY - MEDICINE [facility] Oct 05, 2021 03:30 PM AMBULATORY - NONE [facility] Nov 22, 2021 10:00 AM AMBULATORY - MEDICINE [facility] Nov 22, 2021 11:30 AM AMBULATORY - NONE [facility] Dec 15, 2021 11:15 AM AMBULATORY - NONE [facility] Surgical Procedures: All associated to the encounter This section includes all Surgical Procedures and Surgical Procedure Notes associated to the Encounter.Surgical Procedures This section includes all Surgical Procedures associated to the Encounter.Surgical Procedure Date/Time Procedure Procedure Type Procedure Provider Source Qualifiers Jun 28, 2021 ELECTROCARDIOGRAM ELECTROCARDIOGRAM LUNA LLOYD CURRIE 10:30 AM TRACING TRACING [facility] Surgical Notes There are no notes associated with this procedure. Lab Results: +/- 30 days of the encounter This section includes the Chemistry and Hematology Lab Results on record with [place] for the patient. Radiology Reports and Pathology Reports are provided separately, in subsequent sections.Lab Results This section contains the Chemistry/Hematology Results that were resulted 30 days before or 30 days after the date of the Encounter. Date/Time Source Result Type Result - Unit Interpretation Reference Range Comment Jun 28, 2021 09:55 [facility] GLYCOHEMOGLOBIN (A1C ONLY) Specimen Type: BLOOD AM Comment: Tests performed on [employer] (405) SN:[id number] Ordering Provider: DARIN ZHAO Report Released Date/Time: Jun 28, 2021 07:11 AM Reporting Lab: [facility] [address] [facility] [address] Performing Lab: [facility] [address] [address] HEMOGLOBIN A1C 5.3 % 4.0-5.6 Jun 28, 2021 09:55 AM [facility] IRON+TIBC(P) Specimen Type: PLASMA Comment: Tests performed on [employer] (405) SN:[id number] Ordering Provider: DARIN ZHAO Report Released Date/Time: Jun 28, 2021 07:11 AM Reporting Lab: [facility] [address] [facility] [address] Performing Lab: [facility] [address] [facility] [address] IRON 59 ug/dL 40-160 TIBC 303 ug/dL 204-475 IRON SATURATION(P) 19 % >15 Jun 28, 2021 09:55 AM [facility] FERRITIN Specimen Type: SERUM Comment: Tests performed on [employer] (405) SN:[id number] Ordering Provider: DARIN ZHAO Report Released Date/Time: Jun 28, 2021 07:11 AM Reporting Lab: [facility] [address] [facility] [address] Performing Lab[facility] [address] [address] FERRITIN 287.5 ng/mL 20-300 Jun 28, 2021 09:55 [facility] P4 GLU,BUN,CREAT,LYTES,CA Specimen Type: PLASMA AM Comment: Tests performed on [employer] (405) SN:[id number] Ordering Provider: DARIN ZHAO Report Released Date/Time: Jun 28, 2021 07:11 AM Reporting Lab: [facility] [address] [facility] [address] Performing Lab: [facility] [address] [facility] [facility] [address] UREA NITROGEN 21 mg/dL 7-25 SODIUM 137 mmol/L 135-145 POTASSIUM 3.8 mmol/L 3.5-5.0 CHLORIDE 106 mmol/L 100-110 CARBON DIOXIDE 22 mmol/L 20-30 ANION GAP 9 mmol/L 4-16 GLUCOSE 98 mg/dL 65-100 CREATININE 1.07 mg/dl 0.5-1.5 CALCIUM 8.6 mg/dL 8.5-10.5 eGFR 71 mL/min >60 Jun 28, 2021 09:55 AM [facility] CBC PROFILE Specimen Type: BLOOD No comment enter ed. Ordering Provider: DARIN ZHAO Report Released Date/Time: Jun 28, 2021 07:11 AM Reporting Lab: [facility] [address] [facility] [address] Performing Lab: [facility] [address] [facility] [address] WBC 7.6 10*3/uL 4.5-11.0 RBC 5.36 10*6/uL [...] 10*3/uL 0-0 Jun 28, 2021 09:55 AM [facility] LIVER PROFILE Specimen Type: PLASMA Comment: Tests performed on [employer] (907) SN:[id number] Ordering Provider: DARIN ZHAO Report Released Date/Time: Jun 28, 2021 07:11 AM Reporting Lab: [facility] [address] [facility] [facility] [address] [facility] [address] [facility] [facility] [address] PROTEIN, TOTAL 7.2 g/dL 6.0-8.5 ALBUMIN 3.8 g/dL 3.2-5.0 BILIRUBIN, TOTAL 0.6 mg/dL 0.2-1.2 ALKALINE PHOSPHATASE 68 U/L 40-150 ALT(SGPT) 30 U/L 7-52 AST(SGOT) 21 U/L 5-34 Jun 28, 2021 09:55 [facility] LIPOPROTEIN CHOLESTEROL Specimen Type: PLASMA AM FRACT. PANEL Comment: Tests performed on [employer] (405) SN:[id number] Ordering Provider: DARIN ZHAO Report Released Date/Time: Jun 28, 2021 07:11 AM Reporting Lab: [facility] [address] [address] [facility]forming [facility] [address] [facility] [address] CHOLESTEROL 184 mg/dL 0-199 TRIGLYCERIDE 90 mg/dL 0-149 HDL CHOLESTEROL 39 mg/dL L >40 LDL CHOLESTEROL (CALC) 127 mg/dl 0-129 Vital Signs: All taken on the encounter date This section contains inpatient and outpatient Vital Signs collected on the date of the Encounter. Date/Time Temperature Pulse Blood Respiratory SP02 Pain Height Weight Santosh dy Source Pressure Rate Mass Index Jun 28, 97.4 F 62 138/84 16 /min 99 % CURRIE 2020 10:35 /min mm[Hg] [facility] Social History: Smoking Status (Most current) and [...] place. Date/Time Current Smoking Status Comment Facility Jun 28, 2021 10:30 AM [place]-TOBACCO NEVER [facility] Tobacco Use History This section includes a history of the smoking, or tobacco-related health factors, that were collected on or before the date of the Encounter. The data comes from the [place] facility where the Encounter took place. Date/Time Smoking Status/Tobacco Use Comment [facility] it Mar 25, 2018 09:32 AM LIFETIME NON-TOBACCO USER [facility] Encounter Notes: All associated encounter notes This section contains the clinical notes associated to the Encounter. Date/Time Encounter Note(s) Provider Source Jun 28, 2021 10:06 AM PRIMARY CARE NOTE: AIDE LLOYD [facility] LOCAL TITLE: Business Affairs Manager Note STANDARD TITLE: PRIMARY CARE NOTE DATE OF NOTE: JUN 28, 2021@10:06 ENTRY DATE: JUN 28, 2021@10:06:50 AUTHOR: AIDE LLOYD V EXP COSIGNER: URGENCY: STATUS: COMPLETED Business Affairs Manager Note Has ADDENDA presents for lab and nurse visit. Reports left arm pain , starting after golfing a bout 5 weeks ago. Also lifted chest freezer last week and noticed left arm num bness at one point. Also reports chest tightness at times. States he eats 2 tums at a time sometimes. Does eat pizza, fried chicken, 2 cups of coffee daily. States sometimes has burning feeling in throat. Works at [employer], reports increased stress from this job, states he has two years until jail and is counting down. EKG done in clinic. Sinus bradycardia Vent rate 59, pr interval 152 ms QRS duration 94 ms QT/QTc-Baz 396/392 ms P-R-T axes 40 56 51 Reported these results to PCP . No need for ER visit today per PCP Reports migraines in AM, right muslim area, take s tylenol or ibuprofen with coffee in AM and this usually helps to resolve i t. Occurs twice weekly on average. 2009 kidney surgery, now feeling pressure in thi s area. States there are days where he does not void at all and other days where he voids in large amounts. States he had surgery with Dr Haddad where ureter was reattached and points to right kidney area. No tobacco use, reports his parents smoked when he was a child. ETOH: few times per year. Also would like to speak with PCP regarding whit e spot over throat area. 0.5inches diameter, states t his has been there for approx 40 years from service injury from airborne excercises. PCP plan to order imaging. aware. Will f/u with labs. Would like to f/u on arm pain, feels as though s omething was pulled after golfing in left arm. Tobacco Use Screening: The patient has never used tobacco. Alcohol Use Screen (AUDIT-C): Alcohol Screen: SCREEN FOR ALCOHOL (AUDIT-C) An alcohol screening test (AUDIT-C ) was negative (score=1). 1. How often did you have a drink containing alcohol in the past year? Monthly or less 2. How many drinks containing alco hol did you have on a typical day when you were drinking in the past year? One or two drinks 3. How often did you have six or m ore drinks on one occasion in the past year? Never COVID-19 Immunization: Vaccine deferred to later date. Reason: Declines today /es/ AIDE LLOYD REGISTERED NURSE Signed: 06/28/2021 10:44 Receipt Acknowledged By: 06/29/2021 08:31 /stiven/ DARIN ZHAO APRN 06/29/2021 ADDENDUM STATUS: COMPLETED EKG showed sinus bradycardia . No changes in T waves. Labs show only an HDL of 39 /stiven/ DARIN ZHAO APRN Signed: 07/12/2021 06:35
--- OUTSIDE RECORDS SUMMARY | 2021-12-15 13:07 | XMS_ITS | Encounter Summary ---
:1960 Author Organization Department of [facility] rs Address [address] [place] [address] Care Team Providers Name Role Phone DARIN [...] [place] Oct 08 [id number] [phone] Loc [place] PATIENT FEP INSURANCE L 112 2010 52 5 ICHAEL (DENTAL) [place] PREFERRED BASIC Oct 08 [id number] [phone] Loc [place] PATIENT FEP PROVIDER FAMIL 2010 52 5 ICHAEL ORGANIZAT Y ION (PPO) [place] PREF[place] Oct 08 [id number] [phone] Loc [place] PATIENT FEDERAL PROVIDER FAMIL 2010 52 4 ICHAEL ORGANIZAT Y ION (PPO) [place]ARK-F PRESCRIPT FEP Oct 08 [id number] [phone] Loc [place] PATIENT EP BCBS ION BCBS 2010 0 52 7 ICHAEL CAREMARK-F PRESCRIPT FEP Oct 08 [id number] [phone] Loc [place] PATIENT EP BCBS ION 2010 0 52 331 ICHAEL CAREMARK-F PRESCRIPT BCBS Oct 08 [id number] [phone] Loc [place] PATIENT EP BCBS ION FEP 2010 0 52 331 ICHAEL PLAN [place]IG[place] PREFERRED SUKHI Oct 08 [id number] [phone] Loc [place] PATIENT BLUE PROVIDER AL* 2010 0 52 6 ICHAEL CROSS* ORGANIZAT ION (PPO) HIGHMARK DENTAL SUKHI Oct 08 [id number] [phone] Loc MARIE PATIENT DENTAL INSURANCE AL 2010 52 7 ICHAEL (FEP) DENTA L HORIZON PREFERRED BASIC Oct 08 [id number] [phone] KURT IM PATIENT BCBS FEP* PROVIDER FAMIL 2010 52 8 ICHAEL ORGANIZAT Y ION (PPO) INDEPENDEN PREFERRED BASIC Oct 08 [id number] [phone] Loc [place] PATIENT CE BLUE PROVIDER FAMIL 2010 52 0 ICHAEL CROSS ORGANIZAT Y (FEP) ION (PPO) Selected Encounter This section includes the information on record at [place] for the Encounter. Date/Time Encounter Type Encounter Reason Provider Source Description Sep 21, 2021 PRO PHONE TELEPHONE TRIAGE ICD-10-CM Z71.9 VIVEK HUGHES 03:18 PM CALL 5-10 MIN Counseling, MAXIME unspecified with Provider Comments: Counseling, unspecified IHE Encounter Template Text not used by VA Assessments - Encounter Diagnoses This section includes the primary and secondary diagnoses documented forthe Encounter. Date/Time Primary/Secondary Diagnosis Name Provider Source Diagnosis Sep 21, 2021 PRIMARY CounselingELLEN KIMBERLY [facility]ART[facility] 03:18 PM unspecified [facility] Plan of Treatment: Future Appointments (+ 6 months) and Future Tests (+/- 45 days) The Plan of Treatment section includes future care activities for the patient from all [place] treatment facilities. This section includes future appointments and future orders which are active, pending or scheduled.Future Appointments This section includes appointments that were scheduled to occur 6 months from the date of the Encounter, up to a maximum of 20 appointments. The [facility] [place] [facility] Appointment Date/Time Appointment Type Appointment Facili ty Name Sep 25, 2021 11:30 AM AMBULATORY - MEDICINE [facility] Oct 05, 2021 02:00 PM AMBULATORY - MEDICINE [facility] Oct 05, 2021 03:30 PM AMBULATORY - NONE [facility] Nov 22, 2021 10:00 AM AMBULATORY - MEDICINE IB[facility]IMA MARTIN T [facility] Nov 22, 2021 11:30 AM AMBULATORY - NONE [facility]ARTIN T [facility] Dec 15, 2021 11:15 AM AMBULATORY - NONE [facility]A MARTIN T [facility] Jan 25, 2022 11:30 AM AMBULATORY - MEDICINE IBRAHIMA MARTIN [facility] Active, Pending, and Scheduled Orders This section includes a listing of several types of active, pending, and scheduled orders, including clinic medications orders, diagnostic test orders, procedure orders and consult orders; where the start date of the order is 45 days before the date of the Encounter or 45 days after the date of the Encounter. The data comes from all [place] treatment facilities. Test Date/Time Test Type Test Details Facility Name Aug 15, 2021 10:44 AM Consult Order COLONOSCOPY SCREENING OUTP T [facility] Cons Supply Chain Project Manager's Choice Oct 01, 2021 09:23 AM Consult Order DERMATOLOGY OUTPATIENT Con s [facility] Supply Chain Project Manager's Choice Surgical Procedures: All associated to the encounter This section includes all Surgical Procedures and Surgical Procedure Notes associated to the Encounter.Surgical Procedures This section includes all Surgical Procedures associated to the Encounter.Surgical Procedure Date/Time Procedure Procedure Type Procedure Provider Source Qualifiers Sep 21, 2021 HC PRO PHONE HC PRO PHONE KASSI HUGHES 03:18 PM CALL 5-10 MIN CALL 5-10 MIN Dinesh DAILEY [facility] Surgical Notes There are no notes associated with this procedure. Social History: Smoking Status (Most current) and Tobacco Use (All prior to encounter date) This section includes the most current, and the historical, smoking and tobacco-related health factors from the [place] facility where the Encounter took place.Current Smoking Status This section includes the most current smoking, or tobacco-related health factor, from the [place] facility where the Encounter took place. Date/Time Current Smoking Status Comment Facility May 02, 2020 03:54 PM VA-TOBACCO NEVER USED SVETLANA MARTIN [facility] Encounter Notes: All associated encounter notes This section contains the clinical notes associated to the Encounter. Date/Time Encounter Note(s) Provider Source Sep 21, 2021 03:18 PM TELEPHONE ENCOUNTER NOTE: DAMARIS HUGHES [facility] LOCAL TITLE: VISN 1 CLINICAL CONTACT CENTER [facility] STANDARD TITLE: TELEPHONE ENCOUNTER NOTE DATE OF NOTE: SEP 21, 2021@15:18:47 ENTRY DATE: SEP 21, 2021@15:26:19 AUTHOR: DAMARIS HUGHES EXP COSIGNER: URGENCY: STATUS: COMPLETED VISN 1 CLINICAL CONTACT CENTER Has ADDEND A Type of call: SYMPTOM. PCMM Provider Info: [facility] [place] [facility] (405) PACT: NEW Pact A (Focus: Primary Care Only) Primary Care Provider: Darin Zhao Mill Hand: Vicky Pan V PHONE:[phone] Clinical Associate: Leeann Ledbetter PHONE:[phone] Sports Book Server: Ximena Stewart PACT Clinical Pharmacist: Radha Chen Clinical POC: Mill Hand Vicky Pan V PHONE:[phone] Administrative POC: Administrative Assoc Ximena Galvan Caller Response: CLN CALL RESOLVED The patient, GERALD MARIE ([id number]) called the call center. Evaluation/Management Code: HC PRO PHONE CALL 5- 10 MIN ([phone]). Starting at: 09/21/2021 @ 3:18:47 PM Ending at: 09/21/2021 @ 3:22:47 PM Length: 4 minutes. Author: DAMARIS HUGHES Caller Area: [facility] Chief Complaint: Skin Lesion Triage Note Phone Triage Joyce Sep 21 2021 15:22:32 GMT-0500 ([facility] chuck Time) Demographics 61 y/o Male Results CC: Skin Lesion Nurse Recommendation: 12-24 Hours TEDP Suggestion: 12-24 Hours Nurse Recommended Follow-up Location: [facility] , [place] TEDP Suggested Follow-up Location: [facility], [facility], consider [facility] care Values and Measures Pain scale: 3 Duration of CC: 2 Weeks Positive Responses HPI: skin erythema, around skin lump or bump HPI: skin tenderness, around the skin lump o r papule Negative Responses Denies: HPI: skin lump, painful, swollen Denies: HPI: vomiting Denies: MEDS: chemotherapy Denies: PMH: diabetes Denies: PMH: HIV positive Denies: PSH: organ transplant Nurse Notes: TEDP 12-24 hours for skin lesion near nipple are a the size of a pen tip that keeps bleeding intermittantly. He did see PCP on 08/15 for same type lesions but they didn't ever bleed. He is going to [facility] on 10/[address] scan and wondering if he could see Derm provider at [facility]. Will fwd and alert team nurse. Thanks. Class Code: Counseling, unspecified. Contact Phone Number: Patient's Email Address: [email or web address] DAMARIS HUGHES REGISTERED NURSE Signed: 09/21/2021 15:26 Receipt Acknowledged By: 09/22/2021 15:57 /chelle/ LEEANN LEDBETTER LPN 09/22/2021 ADDENDUM STATUS: COMPLETED As per PCP nurse visit with BROWNELL OPERATOR 09/22/2021 w/ PC P pop in. 1130am negotiated. Will likely turn to Derm. /chelle/ LEEANN LEDBETTER LPN Signed: 09/22/2021 15:58 Receipt Acknowledged By: 09/25/2021 08:41 /chelle/ ELSIE ZEE 09/25/2021 ADDENDUM STATUS: COMPLETED appt scheduled for 09/25/21 at 11:30 /shanna ZEE Signed: 09/25/2021 08:42
--- OUTSIDE RECORDS SUMMARY | 2021-12-15 13:07 | XMS_ITS | Encounter Summary ---
:1960 Author Organization Department [facility] rs Address [address] [place] [address] Care Team Providers Name Role Phone DARIN GONZALEZ Primary Care Provider Unavailable Insurance Providers: All [...] [place] Oct 08 [id number] [phone] Loc [place] PATIENT FEP INSURANCE L 112 2010 52 5 ICHAEL (DENTAL) [place] PREF[place]ED BAS[place] Oct 08 [id number] [phone] Loc [place] PATIENT FEP PROVIDER FAMIL 2010 52 5 ICHAEL ORGANIZAT Y ION (PPO) BCBS OF [place] PREFERRED BASIC Oct 08 [id number] [phone] Loc [place] PATIENT FEDERAL PROVIDER FAMIL 2010 52 4 ICHAEL ORGANIZAT Y ION (PPO) CAREMARK-F PRESCRIPT FEP Oct 08 [id number] [phone] Loc [place] PATIENT EP BCBS ION BCBS 2010 0 52 7 ICHAEL CAREMARK-F PRESCRIPT FEP Oct 08 [id number] [phone] Loc [place] PATIENT EP BCBS ION 2010 0 52 331 ICHAEL CAREMARK-F PRESCRIPT BCBS Oct 08, [id number] [phone] Loc [place] PATIENT EP BCBS ION FEP 2010 0 52 331 ICHAEL PLAN HIGHMARK PREFERRED SUKHI Oct 08, [id number] [phone] Loc SUMNER PATIENT BLUE PROVIDER AL* 2010 0 52 6 ICHAEL CROSS* ORGANIZAT ION (PPO) HIGHMARK DENTAL SUKHI Oct 08 [id number] [phone] Loc CAMP PATIENT DENTAL INSURANCE AL 2010 52 7 ICHAEL (FEP) DENTA L HORIZON PREFERRED BASIC Oct 08 [id number] [phone] KURT I,M PATIENT BCBS FEP* PROVIDER FAMIL 2010 52 8 ICHAEL ORGANIZAT Y ION (PPO) INDEPENDEN PREFERRED BASIC Oct 08 [id number] [phone] Loc [place] PATIENT CE BLUE PROVIDER FAMIL 2010 52 0 ICHAEL CROSS ORGANIZAT Y (FEP) ION (PPO) Selected Encounter This section includes the information on record at [place] for the Encounter. Date/Time Encounter Type Encounter Reason Provider Source Description Aug 15, 2021 OFFICE O/P EST PRIMARY ICD-10-CM N13.30 FLOWERCHELLEDARIN 10:30 AM LOW 20-29 MIN CARE/MEDICINE Unspecified hydronephrosis with Provider Comments: Unspecified Hydronephrosis IHE Encounter Template Text not used by [facility] Assessments - Encounter Diagnoses This section includes the primary and secondary diagnoses documented forthe Encounter. Date/Time Primary/Secondary Diagnosis Name Provider Source Diagnosis Aug 21, 2021 PRIMARY Unspecified [facility] 09:26 AM hydronephrosis CLINIC Plan of Treatment: Future Appointments (+ 6 months) and Future Tests (+/- 45 days) The Plan of Treatment section includes future care activities for the patient from all [place] treatment facilities. This section includes future appointments and future orders which are active, pending or scheduled.Future Appointments This section includes appointments that were scheduled to occur 6 months from the date of the Encounter, up to a maximum of 20 appointments. The data comes from all [place] [facility]. Appointment Date/Time Appointment Type Appointment Facili ty Name Aug 18, 2021 04:36 PM AMBULATORY - NONE [facility] Sep 25, 2021 11:30 AM AMBULATORY - MEDICINE [facility] Oct 05, 2021 02:00 PM [facility]ICINE [facility] Oct 05, 2021 03:30 PM AM[facility]UL[facility]ORY - NONE [facility] Nov 22, 2021 10:00 AM AMBULATORY - MEDICINE [facility] Nov 22, 2021 11:30 AM AMBULATORY - NONE [facility] Dec 15, 2021 11:15 AM AMBULATORY - NONE [facility] Jan 25, 2022 11:30 AM AMBULATORY - MEDICINE [facility] Active, Pending, and Scheduled Orders This section includes a listing of several types of active, pending, and scheduled orders, including clinic medications orders, diagnostic test orders, procedure orders and consult orders; where the start date of the order is 45 days before the date of the Encounter or 45 days after the date of the Encounter. The data comes from all [place] treatment facilities. Test Date/Time Test Type Test Details Facility Name Aug 15, 2021 10:44 AM Consult Order COLONOSCOPY SCREENING OUTP T [facility] Cons Electrolysist's Choice Lab Results: +/- 30 days of the encounter This section includes the Chemistry and Hematology Lab Results on record with [place] for the patient. Radiology Reports and Pathology Reports are provided separately, in subsequent sections.Lab Results This section contains the Chemistry/Hematology Results that were resulted 30 days before or 30 days after the date of the Encounter. Date/Time Source Result Type Result - Unit Interpretation Reference Range Comment Aug 15, 2021 11:01 [facility] URINALYSIS W/REFLEX TO Specimen Type: URINE AM CULTURE No comment enter ed. Ordering Provider: DARIN GONZALEZ Report Released Date/Time: Aug 15, 2021 10:46 AM Reporting Lab: [facility] [address] [address] Performing Lab: [facility] [address] [facility] [address] URINE COLOR Straw YELLOW SPECIFIC GRAVITY 1.005 1.003-1.030 UROBILINOGEN <2.0 mg/dL <2.0 URINE BILIRUBIN NEG NEG URINE KETONES NEG mg/dL NEG URINE GLUCOSE NEG mg/dL NEG PROTEIN, URINE NEG mg/dL NEG URINE PH 7.0 5-8 CLARITY CLEAR Clear URINE BLOOD NEG NEG NITRITE, URINE NEG NEG WBC SCREEN NEG NEG Aug 15, 2021 11:01 [facility] P4 GLU,BUN,CREAT,LYTES,CA Specimen Type: PLASMA AM Comment: Tests performed on Quantitative Medicine (405) SN:[id number] Ordering Provider: DARIN GONZALEZ Report Released Date/Time: Aug 15, 2021 10:46 AM Reporting Lab: [facility] [address] [address] [facility] [address] [address] UREA NITROGEN 18 mg/dL 7-25 SODIUM 138 mmol/L 135-145 POTASSIUM 4.0 mmol/L 3.5-5.0 CHLORIDE 106 mmol/L 100-110 CARBON DIOXIDE 21 mmol/L 20-30 ANION GAP 11 mmol/L 4-16 GLUCOSE 94 mg/dL 65-100 CREATININE 1.04 mg/dl 0.5-1.5 CALCIUM 9.1 mg/dL 8.5-10.5 eGFR 73 mL/min >60 Vital Signs: All taken on the encounter date This section contains inpatient and outpatient Vital Signs collected on the date of the Encounter. Date/Time Temperature Pulse Blood Respiratory SP02 Pain Height Weight Santosh dy Source Pressure Rate Mass Index Aug 15 124/80 16 /min 98 % 69 in 225.8 33 BEAU 2020 10:41 /min mm[Hg] lb [facility] Social History: Smoking Status (Most current) and Tobacco Use (All prior to encounter date) This section includes the most current, and the historical, smoking and tobacco-related health factors from the [place] facility where the Encounter took place.Current Smoking Status This section includes the most current smoking, or tobacco-related health factor, from the [place] facility where the Encounter took place. Date/Time Current Smoking Status Comment Facility Jun 28, 2021 10:30 AM [place]-TOBACCO NEVER USED [facility] Tobacco Use History This section includes a history of the smoking, or tobacco-related health factors, that were collected on or before the date of the Encounter. The data comes from the [place] facility where the Encounter took place. Date/Time Smoking Status/Tobacco Use Comment [facility] Mar 25, 2018 09:32 AM LIFETIME NON-TOBACCO USER [facility] Radiology Reports: +/- 30 days of [...] the Encounter. The data comes from all [place] treatment facilities. Date/Time Radiology Report Provider Source Aug 18, 2021 09:28 AM ULTRASOUND RENAL: WHITE [place] [facility] [id number] -JAN 10 64 M Exm Date: AUG 18, 2021@09:28 Req Phys: EVONNE VALERA Loc: OUTSIDE ULTRASOUND (Req'g Loc) Img Loc : OUTSIDE ULTRASOUND Service : Unknown (Case [id number] COMPLETE) ULTRASO UND RENAL (US Detailed) CPT:09357 Reason for Study: Exam imported from outsid e Clinical History: Original Data for Imported Study Patient Name: Gerald Camp Date: 1960 Sex: M Study Date: 08/18/21 [facility] Time: 09:28:05 Study Description: US BLADDER W/RENAL Referring Physician: Darin Gonzalez Series 1: 1 US file Series 2: 40 US files, description: US B LADDER W/RENAL Acquisition site: [facility] Report Status: Electronically Filed Lior hyman Reported: AUG 30, 2021 Report: RADIOLOGY PROCEDURE: N O T I C E: SCANNED IN R EPORT THIS EXAMINATION WAS PERFORMED AND INTERP RETED AT A NON-[place] FACILITY. To view the report, select the [employer] Tools Menu and choose the Image Display (Viewer) option. Impression: RADIOLOGY PROCEDURE: N O T I C E: SCANNED IN R EPORT THIS EXAMINATION WAS PERFORMED AND INTERP RETED AT A NON-VA FACILITY. To view the report or images, select the [employer] Tools Menu and choose the Image Display [...] the Encounter. The data comes from all [facility] facilities. Date/Time Pathology Report Provider Source Aug 18, 2021 04:43 PM LR CYTOPATHOLOGY REPORT: FEDE EVANS [facility] LOCAL TITLE: LR CYTOPATHOLOGY REPORT STANDARD TITLE: PATHOLOGY REPORT DATE OF NOTE: AUG 18, 2021@16:43:21 ENTRY DATE: AUG 18, 2021@16:43:21 AUTHOR: FEDE EVANS EXP COSIGNER: URGENCY: STATUS: COMPLETED $APHDR Reporting Lab: [facility] [CLIA# [id number]] [address] [place] [address] - - - - - - [...] - - - $TEXT Submitted by: DARIN GONZALEZ Date obtained: Aug 11, 2021 - - - - - - - - - - - - - - - - - - - - - - - - - - - - - - - - - - - - - - - - Specimen (Received Aug 16, 2021 08:58): URINE [id number] - - - - - - - [...] - - - POSTOPERATIVE DIAGNOSIS: Surgeon/physician: NICANOR GONZALEZ CAPACITOR PACK PRESS OPERATOR =-=-=-=-=-=-=-=-=-=-=-=-=-=- =-=-=-=-=-=-=-=-=-=-=-=-=-=-=-=-=-=-=-=-=-=-=-=-=-= - - - - - [...] FLUID. SENT WITH CYTOLYT IN 1 TUBE. [facility] [id number] Diagnosis: Satisfactory specimen No malignant cells identified CPT:16894 /es/ FEDE EVANS M.D. PATHOLOGIST Signed Aug 18, 2021@16:43 Performing Laboratory: Cytology Report Performed By: [facility] [CLIA# [id number]] [address] [place] [phone] $FTR - - - - - - [...] - - [facility] STANDARD FORM 515 ID:[id number] SEX:M :1960 AGE: 61 LO C:NEW HIP PC P: Darin Gonzalez, CAPACITOR PACK PRESS OPERATOR /chelle/ FEDE EVANS M.D. PATHOLOGIST Signed: 08/18/2021 16:43 Encounter Notes: All associated encounter notes This section contains the clinical notes associated to the Encounter. Date/Time Encounter Note(s) Provider Source Aug 15, 2021 10:48 AM PRIMARY CARE NOTE: DARIN GONZALEZ [facility] LOCAL TITLE: Primary Care Clinic Note STANDARD TITLE: PRIMARY CARE NOTE DATE OF NOTE: AUG 15, 2021@10:48 ENTRY DATE: AUG 15, 2021@10:48:12 AUTHOR: DARIN GONZALEZ EXP COSIGNER: URGENCY: STATUS: COMPLETED Primary Care Clinic Note Has ADDENDA Ackerly is identified by first name, last name a nd last 4 digits of his SS# and routinely followed by the [facility] The patient has the following concerns: Years ago he had an episode where he had a kink ed ureter which led to hydronephrosis. He had quit e a bit of pain at that time. Recently, he has had an increase in that exact pain. He is pending a ultrasound. Only other concern is he has patch of skin the m iddle of his chest toward the top of the sternum that is losing color Age at onset of lesions--noticed this over last couple of months Patient has answered NKA Problem List - Active - NONE FOUND Active Outpatient Medications (excluding Supplie s): Active Non-VA Medications Status 1) Non-VA AMOXICILLIN 500/CLAV K 125MG TAB 1 T ABLET BY ACTIVE MOUTH THREE TIMES A DAY 2) Non-VA FLUTICASONE PROP 50MCG 120D NASAL IN HL 2 ACTIVE SPRAYS INTO EACH NOSTRIL Physical Exam: B/P PULSE WEIGHT BMI SpO2 PAIN 124/80 62 225.8 33.4 98 0 Skin: pink, warm, dry Chest: bilateral lungs are clear. Resps are easy and even Heart: rrr Abd. Soft and flat with active bowel sounds Assessment/Plan: hx of hydronephrosis. Concerning that his pain is similar to when he had difficulties in the past. W e are in the process of getting him an ultrasound of his kidneys ureter and bladder locally FOLLOW UP:tbd /chelle/ DARIN GONZALEZ SCHOOL LIBRARIAN Signed: 08/21/2021 09:26 08/22/2021 ADDENDUM STATUS: COMPLETED [facility] ultrasound showed hydronephrosis. Electronic consult urology with the following suggestions Rec: - obtain images from [facility] ultrasound f or upload on our PACS - consider CT urogram for definitive work-up of right ureter and renal pelvis including anatomy - would be happy to see Vete ran via TH after the CTU is done to discuss results 1. I am going to place the order for th e CT urogram to be done at [place]. 2. [facility] to [facility] for have the ultrasound uploaded. 3. Informed patient that he just urogram and en courage him to follow with urology /chelle/ DARIN GONZALEZ SCHOOL LIBRARIAN Signed: 08/22/2021 15:04 Receipt Acknowledged By: * AWAITING SIGNATURE * AIDE LLOYD V 08/28/2021 15:33 /chelle/ WILLY DESAI 08/23/2021 ADDENDUM STATUS: COMPLETED request of disk sent to [facility] radiology /es/ WILLY DESAI Signed: 08/23/2021 11:19 08/28/2021 ADDENDUM STATUS: COMPLETED rec'd from [facility] radiology Disk 08/18/21 US BLADD ER W?RENAL 08/11/2021 XR_ ABDOMEN 2V AP/NH OR DECUB /es/ WILLY JOHNSON AMSA Signed: 08/28/2021 15:27 Receipt Acknowledged By: * AWAITING SIGNATURE * JENNI ALCANTAR Aug 15, 2021 10:33 AM PRIMARY CARE ANNUAL EVALUATION NOTE: AIDE JACKSON V [facility] LOCAL TITLE: Preventive Health Annual Review STANDARD TITLE: PRIMARY CARE ANNUAL EVALUATION N OTE DATE OF NOTE: AUG 15, 2021@10:33 ENTRY DATE: AUG 15, 2021@10:33:16 AUTHOR: AIDE LLOYD V EXP COSIGNER: URGENCY: STATUS: COMPLETED Preventive Health Annual Review Has ADDEN DA No outside PCP Would like to have spot on throat checked out. To be discussed with PCP. Avg Risk Colorectal Cancer Screen: AVERAGE RISK colorectal cancer screening is due based on information available to this clinical reminder Screening is due now. Colonoscopy consult has been ordered. See orders tab for details. Tobacco: none. ETOH: a couple per year. [employer] rec'd for work. Please obta in records. /chelle/ AIDE LLOYD REGISTERED NURSE Signed: 08/15/2021 10:43 Receipt Acknowledged By: 08/15/2021 10:49 /es/ MERCEDEZ CISNEROS GLAZIER HELPER 08/15/2021 ADDENDUM STATUS: COMPLETED Influenza Immunization: The patient declines to receive the recommended dose of seasonal influenza vaccine. Comment: declines /chelle/ AIDE LLOYD REGISTERED NURSE Signed: 08/15/2021 10:44
--- OUTSIDE RECORDS SUMMARY | 2021-12-15 13:07 | XMS_ITS | Encounter Summary ---
:1960 Author Organization Department [facility] rs Address [address] [place] [address] Care Team Providers Name Role Phone FLOWERSTIVEN [...] [place] Oct 08 [id number] [phone] Loc [place] PATIENT FEP INSURANCE L 112 2010 52 5 ICHAEL (DENTAL) [place] PREFERRED BASIC Oct 08 [id number] [phone] Loc [place] PATIENT FEP PROVIDER FAMIL 2010 52 5 ICHAEL ORGANIZAT Y ION (PPO) [place]BS OF [place] PREFERRED BASIC Oct 08 [id number] [phone] Loc [place] PATIENT FEDERAL PROVIDER FAMIL 2010 52 4 ICHAEL ORGANIZAT Y ION (PPO) CAREMARK-F PRESCRIPT FEP Oct [id number] Loc [place] PATIENT EP BCBS ION BCBS 2010 0 52 7 ICHAEL CAREMARK-F PRESCRIPT FEP Oct 08 [id number] [phone] Loc [place] PATIENT EP BCBS ION 2010 0 52 331 ICHAEL CAREMARK-F PRESCRIPT BCBS Oct [id number] [phone] Loc [place] PATIENT EP BCBS ION FEP 2010 0 52 331 ICHAEL PLAN HIGHMARK PREFERRED SUKHI Oct 08 [id number] [phone] Loc [place] PATIENT BLUE PROVIDER AL* 2010 0 52 6 ICHAEL CROSS* ORGANIZAT ION (PPO) HIGHMARK DENTAL SUKHI Oct 08 [id number] [phone] Loc MARIE PATIENT DENTAL INSURANCE AL 2010 52 7 ICHAEL (FEP) DENTA L HORIZON PREFERRED BASIC Oct 08 [id number] [phone] KURT I,M PATIENT BCBS FEP* PROVIDER FAMIL 2010 52 8 ICHAEL ORGANIZAT Y ION (PPO) INDEPENDEN PREFERRED BASIC Oct 08 [id number] [phone] Loc [place] PATIENT CE BLUE PROVIDER FAMIL 2010 52 0 ICHAEL CROSS ORGANIZAT Y (FEP) ION (PPO) Selected Encounter This section includes the information on record at [place] for the Encounter. Date/Time Encounter Type Encounter Reason Provider Source Description Sep 25, 2021 OFFICE O/P EST PRIMARY ICD-10-CM D18.01 SCOTTY LEDBETTER 11:30 AM MINIMAL PROB CARE/MEDICINE Hemangioma of skin HER and subcutaneous tissue with Provider Comments: Hemangioma of skin and subcutaneous tissue IHE Encounter Template Text not used by [facility] Assessments - Encounter Diagnoses This section includes the primary and secondary diagnoses documented forthe Encounter. Date/Time Primary/Secondary Diagnosis Name Provider Source Diagnosis Sep 25, 2021 PRIMARY Hemangioma of skin [facility] 01:09 PM and subcutaneous ER CLINIC tissue Sep 25, 2021 SECONDARY Localized [facility] 01:09 PM swelling, mass and ER CLINIC lump, trunk Sep 25, 2021 SECONDARY Other hypertrophic [facility] 01:09 PM disorders of the ER CLINIC skin Plan of Treatment: Future Appointments (+ 6 months) and Future Tests (+/- 45 days) The Plan of Treatment section includes future care activities for the patient from all [place] treatment facilities. This section includes future appointments and future orders which are active, pending or scheduled.Future Appointments This section includes appointments that were scheduled to occur 6 months from the date of the Encounter, up to a maximum of 20 appointments. The data comes from all [place] treatmentfacilities. Appointment Date/Time Appointment Type Appointment Facili ty Name Oct 05, 2021 02:00 PM AMBULATORY - MEDICINE [facility] Oct 05, 2021 03:30 PM AMBULATORY - NONE [facility] Nov 22, 2021 10:00 AM AMBULATORY - MEDICINE [facility] Nov 22, 2021 11:30 AM AMBULATORY - NONE [facility] Dec 15, 2021 11:15 AM AMBULATORY - NONE [facility] Jan 25, 2022 11:30 AM AMBULATORY - MEDICINE [facility] Active, Pending, and Scheduled Orders This section includes a listing of several types of active, pending, and scheduled orders, including clinic medications orders, diagnostic test orders, procedure orders and consult orders; where the start date of the order is 45 days before the date of the Encounter or 45 days after the date of the Encounter. The data comes from all [place] treatment facilities. Test Date/Time Test Type Test Details Facility Name Aug 15, 2021 10:44 AM Consult Order COLONOSCOPY SCREENING OUTP T [facility] Cons Resource Analyst's Choice Oct 01, 2021 09:23 AM Consult Order DERMATOLOGY OUTPATIENT Con s [facility] Resource Analyst's Choice Vital Signs: All taken on the encounter date This section contains inpatient and outpatient Vital Signs collected on the date of the Encounter. Date/Time Temperature Pulse Blood Respiratory SP02 Pain Height Weight Santosh dy Source Pressure Rate Mass Index Sep 25, 98.4 F 60 126/78 16 /min 98 % 3 69 in 225 lb 33 BEAU 2020 01:10 /min mm[Hg] [facility] Social History: Smoking Status (Most current) and Tobacco Use (All prior to encounter date) This section includes the most current, and the historical, smoking and tobacco-related health factors from the [place] facility where the Encounter took place.Current Smoking Status This section includes the most current smoking, or tobacco-related health factor, from the [place] facility where the Encounter took place. Date/Time Current Smoking Status Comment Facility Jun 28, 2021 10:30 AM [place]-TOBACCO NEVER USED [facility] Tobacco Use History This section includes a history of the smoking, or tobacco-related health factors, that were collected on or before the date of the Encounter. The data comes from the [place] facility where the Encounter took place. Date/Time Smoking Status/Tobacco Use Comment Merle kirby Mar 25, 2018 09:32 AM LIFETIME NON-TOBACCO USER [facility] Encounter Notes: All associated encounter notes This section contains the clinical notes associated to the Encounter. Date/Time Encounter Note(s) Provider Source Sep 25, 2021 11:35 AM PRIMARY CARE NOTE: LEEANN LEDBETTER MIKE Moe [facility] LOCAL TITLE: Stripper And Printer Note STANDARD TITLE: PRIMARY CARE NOTE DATE OF NOTE: SEP 25, 2021@11:35 ENTRY DATE: SEP 25, 2021@11:35:57 AUTHOR: LEEANN LEDBETTER EXP COSIGNER: URGENCY: STATUS: COMPLETED Stripper And Printer Note Has ADDENDA Patient in today for multipl e areas of concern regarding dermatology. PCP to pop in. per PCP: Hemangioma. Patient has multiple hemangiomas on his chest, s houlder and back. The trouble someone is located inferior and distal to his le ft nipple. He is concerned because he often catches it while washin g/drying during/after shower or on his clothes while working. States it bleeds at times . No bleeding now. Patient is allergic to the band aid adhesive he was using to cover this. TW supplied him with different band aids as well as a few alternative supplies for covering this while he is at work to avoid irrit ation to the area. Concerns today: 1. Hemangioma inferior and distal to left nipple (5 o'clock) 2. Two areas of concern to RIGHT forehead and te mple. Uneven surfaces, multicolored slightly raised areas. 3. Skin tags under arms. 2 under left arm and 3 under right arm that patient complains can be uncomfortable when clothing cat ches on it. 4. Under left breast region. Two small round firm movable lumps(bb sized. One is approx. two inches lower than the other. Cannot visualize. Palpable. 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 He states he was seen in urgent care. He did not have diagnostic test do ne but urgent care provider did remove two small pieces of metal at the time. P atient showed tw that scar. It is just right of where the superior lump in question is located. Second lump is about 1.5 inches inferior to first. Patient questions if these could be residual pieces or metal vs lipoma. PCP to [facility] derm for multiple derm related issued and advise on POC moving forward with lumps inferior to breast region. /stiven/ LEEANN LEDBETTER LPN Signed: 09/25/2021 13:10 Receipt Acknowledged By: 10/01/2021 09:19 /stiven/ DAIRN ZHAO METAL BURNISHER 10/01/2021 ADDENDUM STATUS: COMPLETED was asessed for skin lesions and concerns. has a bleeding lesion. likely hemangioma. Has numerous bothersome skin tags..p refers a cc derm appt /es/ DARIN ZHAO METAL BURNISHER Signed: 10/01/2021 09:26
--- OUTSIDE RECORDS SUMMARY | 2021-12-15 13:07 | XMS_ITS | Encounter Summary ---
:1960 Author Organization Department [facility] rs Address [address] [place] [address] Care Team Providers Name Role DARIN Whyte Primary Care Provider Unavailable Insurance Providers: All [...] [place] Oct 08 [id number] [phone] Loc GROVER PATIENT FEP INSURANCE L 112 2010 52 5 ICHAEL (DENTAL) [place] PREF[place]ED BAS[place] Oct 08 [id number] [phone] Lco [place] PATIENT FEP PROVIDER FAMIL 2010 52 5 ICHAEL ORGANIZAT Y ION (PPO) [place] OF [place] PREFERRED BASIC Oct 08 [id number] [phone] Loc [place] PATIENT FEDERAL PROVIDER FAMIL 2010 52 4 ICHAEL ORGANIZAT Y ION (PPO) CAREMARK-F PRESCRIPT FEP Oct 08 [id number] [phone] Loc MENDO[place] PATIENT EP BCBS ION BCBS 2010 0 52 7 ICHAEL CAREMARK-F PRESCRIPT FEP Oct 08 [id number] [phone] Loc [place] PATIENT EP BCBS ION 2010 0 52 331 ICHAEL CAREMARK-F PRESCRIPT BCBS Oct 08, [id number] [phone] Loc [place] PATIENT EP BCBS ION FEP 2010 0 52 331 ICHAEL PLAN HIGHMARK PREFERRED SUKHI Oct 08, [id number] [phone] ANABEL MEDINAI,M PATIENT BLUE PROVIDER AL* 2010 0 52 6 ICHAEL CROSS* ORGANIZAT ION (PPO) HIGHMARK DENTAL SUKHI Oct 08 [id number] [phone] Loc MARIE PATIENT DENTAL INSURANCE AL 2010 52 7 ICHAEL (FEP) DENTA L HORIZON PREFERRED BASIC Oct 08 [id number] [phone] KURT I,M PATIENT BCBS FEP* PROVIDER FAMIL 2010 52 8 ICHAEL ORGANIZAT Y ION (PPO) INDEPENDEN PREFERRED BASIC Oct 08 [id number] [phone] Loc RANDHAWA PATIENT CE BLUE PROVIDER FAMIL 2010 52 0 ICHJAQUAN CROSS ORGANIZAT Y (FEP) ION (PPO) Selected Encounter This section includes the information on record at MD for the Encounter. Date/Time Encounter Type Encounter Description Reason Provider Source Nov 22, 2021 08:40 Outpatient Encounter ADMIN PAT ACTIVTIES AM (MASNONCT) IHE Encounter Template Text not used by [...] 20 appointments. The data comes from all [facility]. Appointment Date/Time Appointment Type Appointment Facili ty Name Dec 15, 2021 11:15 AM AMBULATORY - NONE [facility] Jan 25, 2022 11:30 AM AMBULATORY - MEDICINE [facility] Active, Pending, and Scheduled Orders This section includes a listing of several types of active, pending, and scheduled orders, including clinic medications orders, diagnostic test orders, procedure orders and consult orders; where the start date of the order is 45 days before the date of the Encounter or 45 days after the date of the Encounter. The data comes from all MD treatment facilities. Test Date/Time Test Type Test Details Facility Name Dec 13, 2021 01:58 PM Consult Order COMM[facility]ITY [facility]ARE-CT Cons I ROSI [facility]ovator Machine Operator's Choice Lab Results: +/- 30 days of [...] Result - Unit Interpretation Reference Range Comment Nov 22, 2021 09:07 AM [facility] U[facility]A NITR[facility]EN Specimen Type: PLASMA Comment: Tests performed on Garay [employer]el [employer] Dog Track (405) [id number] Ordering Provider: DARIN ZHAO Report Released Date/Time: Oct 27, 2021 11:17 AM Reporting Lab: [place] [facility] [address] [facility] [address] Performing Lab: [place] [facility] [address] [facility] [address] UREA NITROGEN 20 mg/dL 7-25 Nov 22, 2021 09:07 [place] CREATININE WITH eGFR Specimen Type: PLASMA AM [facility] PANEL Comment: Tests performed on [employer] Track (405) SN:[id number] Ordering Provider: DARIN ZHAO Report Released Date/Time: Oct 27, 2021 11:17 AM Reporting Lab: [place] [facility] [address] [place] [facility] [place] [place] [address] Performing Lab: [place] [facility] [address] [facility] [address] CREATININE 1.11 mg/dl 0.5-1.5 eGFR 68 mL/min >60 Social History: Smoking Status (Most current) and [...] 02, 2020 03:54 PM VA-TOBACCO NEVER USED [facility] [place] [facility] Radiology Reports: +/- 30 days of the [...] the Encounter. The data comes from all MD treatment facilities. Date/Time Radiology Report Provider Source Nov 22, 2021 11:[address] ABDOMEN & PELVIS: BRISEYDA RAMOS [facility] GERALD MARIE [id number] -JAN [address] [facility] Exm Date: NOV 22, 2021@11:30 Req Phys: DARIN ZHAO Loc : NEW PACT A (Req'g Loc) Img Loc : CT SCAN (OOS) Service : Unknown (Case [id number] COMPLETE) CT ABD & PELVIS WITH AND WITHOUT (CT Detailed) CPT:53223 Contrast Media : Non-ionic Iodinated Reason for Study: ct urogram Clinical History: suggested by urology in e consult Report Status: Verified Da te Reported: NOV 22, 2021 Da te Verified: NOV 22, 2021 Activities Leader E-Sig:/ES/BRISEYDA RAMOS Report: CT scan -- abdomen/pelvis: TECHNIQUE: 0.5 mm helical scans from the l iver dome through the symphysis pubis were performed before, dur ing and after the intravenous administration of 80 cc of non ionic (Omnipaque 350) contrast following the CT urogram protocol . COMPARISON: Ultrasound renal/bladder - 09/2021 ([facility]) Evaluation the kidneys demonstrate no evid ence of renal calculi or mass. There is, over, distention of the renal pelvis with less extensive dilatation of the calyces. There is an abrupt transition from the distended renal pelvis to the ureter which is of normal caliber. There is no evidence of a mass or calculus at the transition point. The left kidney is u nremarkable -- no masses, calculi or hydronephrosis. The ure ter is of normal caliber -- no evidence of masses or strict ures. The partially filled bladder demonstrates no abnormaliti es. The prostate is within normal limits in size and contour a s is true the seminal vesicles. There is no retroperitoneal, mes enteric, pelvic or inguinal adenopathy. Scans through the lung bases demonstrate n o pulmonary nodules, infiltrates or effusions. The liver and sp katherine are within normal limits -- no focal lesions identified. The gallbladder and biliary system are within normal limits. T here are no abnormalities of the pancreas, adrenal gla nds or spleen. Of incidental note is a 1.5 cm splenule along the anterior margin spleen. The bowel containing portions of t he abdomen and pelvis are within normal limits. A normal-appeari ng appendix is identified. A small uncomplicated divertic mariya of the sigmoid is incidentally noted. There are no masses or collections nor is there ascites. A small uncomplicated fat-c ontaining inguinal hernias is identified. There are minimal d egenerative disc changes of the lower thoracic spine as wel l as at the L5-S1 level where there is evidence of L5 spondylolysi s without listhesis. There are no suspicious focal lytic or esperanza stic changes of the bones. Impression: 1. No evidence of renal calculi, masses o r adenopathy. It should be noted that CT is not reliable in the de tection of superficial urothelial malignancies. 2. Dilated right pelvicalyceal system as n oted on outside ultrasound of 08/18/2021. 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 Primary Diagnostic Code: NO IMMEDIATE ATTENT ION REQUIRED Primary Interpreting Staff: BRISEYDA RAMOS, RADIOLOGY ATTENDING (Activities Leader ) /LAUREN Encounter Notes: All associated encounter notes This section contains the clinical notes associated to the Encounter. Date/Time Encounter Note(s) Provider Source Nov 22, 2021 08:40 AM PRIMARY CARE ADMINISTRATIVE NOTE: TRINIDAD BRADFORD [facility] LOCAL TITLE: Administrative Note/Primary Care [facility] STANDARD TITLE: PRIMARY CARE ADMINISTRATIVE NOTE DATE OF NOTE: NOV 22, 2021@08:40 ENTRY DATE: NOV 22, 2021@08:40:47 AUTHOR: TRINIDAD BRADFORD EXP COSIGNER: URGENCY: STATUS: COMPLETED Administrative Note/Primary Care Has ADDE NDA Patient came to the Doubles Alley Desk at the MD in [facility] and asked that a note be put in for Dr. Zhao . He would like a consult to Urology as he says his problems are getting worse and his pain is getti ng worse. /chelle/ TRINIDAD BRADFORD Signed: 11/22/2021 08:42 Receipt Acknowledged By: * AWAITING SIGNATURE * DARIN ZHAO * AWAITING SIGNATURE * LEEANN LEDBETTER 12/12/2021 ADDENDUM STATUS: COMPLETED Multiple attempts to reach patient to di scuss problems and pain. No answers. VM left with request for return call back to [facility]. Aug 2021 E-consult shows: A: moderate right hydronephr osis, moderate PVR on ultrasound, history of kinked ureter Rec: - obtain images from community care ultrasound f or upload on our PACS - consider CT urogram for definitive work-up of right ureter and renal pelvis including anatomy - would be happy to see Vete ran via TH after the CTU is done to discuss results /es/ BENEDICT HERRING [employer], Urology Signed: 08/21/2021 15:25 TW has asked [facility] to obtain community care images for upload as requested above by urology provider. Co-signing PCP for POC moving forward. /chelle/ LEEANN LEDBETTER LPN Signed: 12/12/2021 15:29 Receipt Acknowledged By: 12/12/2021 15:36 /es/ ELSIE ZEE 12/12/2021 15:33 /es/ [facility] 12/12/2021 ADDENDUM STATUS: COMPLETED Spoke with patient who repor ts he has pain in his rectum. Reports blood in stool periodically. Shooting pain in the rectum and ra diating into his leg. States lump in rectum since 11/22/2021. States the lump is still present but pain has subsided some. TW does note upcoming colonoscop y. Reports he does not have reg ular stools. They are painful and hard. He does try to eat fibrous foods to soft en. Patient did move his bowels today. States medium in size but firm. Last BM prior to today was 3 d ays ago. Denies fever, denies bleeding at this time. States some bowel movemen ts are painful. Reports flank pain at times that never r eally goes away. After surgery in 2009 it comes and goes. Denies flank pain today. Recent CT Abdomen and Pelvis done in [facility]. Denies hematuria. Denies difficulty starting his stream. States frequent urination. Denies dysuria. Denies oligur ia. Denies fevers at this time. Denies urgency. Denies maloderous urine at this time. Denies ssx of UTI at this time. Patient is asking if he should still hav e CT Urogram performed and see urology post diagnostics. Asking if he can have CT-UROGR AM done through [facility] if still warranted. PCP please advise. /chelle/ LEEANN LEDBETTER LPN Signed: 12/12/2021 15:46 Receipt Acknowledged By: * AWAITING SIGNATURE * DARIN ZHAO 12/12/2021 ADDENDUM STATUS: COMPLETED Faxed request to [facility] Radiology to obtain disk of US bladder w/renal from - 09/2021 /chelle/ ELSIE ZEE Signed: 12/12/2021 15:36
--- OUTSIDE RECORDS SUMMARY | 2021-12-15 13:07 | XMS_ITS | Encounter Summary ---
:1960 Author Organization Department of [facility] rs Address [address] [place] [address] Care Team Providers Name Role Phone DARIN [...] [place] Oct 08 [id number] [phone] Loc [place] PATIENT FEP INSURANCE L 112 2010 52 5 ICHAEL (DENTAL) [place] PREFERRED BASIC Oct 08 [id number] [phone] Loc [place] PATIENT FEP PROVIDER FAMIL 2010 52 5 ICHAEL ORGANIZAT Y ION (PPO) [place] PREFERRED BASIC Oct 08 [id number] [phone] Loc [place] PATIENT FEDERAL PROVIDER FAMIL 2010 52 4 ICHAEL ORGANIZAT Y ION (PPO) CAREMARK-F PRESCRIPT FEP Oct 08 [id number] [phone] Loc [place] PATIENT EP BCBS ION BCBS 2010 0 52 7 ICHAEL CAREMARK-F PRESCRIPT FEP Oct 08 [id number] [phone] Loc [place] PATIENT EP BCBS ION 2010 0 52 331 ICHAEL CAREMARK-F PRESCRIPT BCBS Oct 08 [id number] [phone] Loc [place] PATIENT EP BCBS ION FEP 2010 0 52 331 ICHAEL PLAN HIGHMARK PREFERRED SUKHI Oct 08 [id number] [phone] Loc SUMNER PATIENT BLUE PROVIDER AL* 2010 0 52 6 ICHAEL CROSS* ORGANIZAT ION (PPO) HIGHMARK DENTAL SUKHI Oct 08 [id number] [phone] Loc CAMP PATIENT DENTAL INSURANCE AL 2010 52 7 ICHAEL (FEP) DENTA L HORIZON PREFERRED BASIC Oct 08 [id number] [phone] Loc [place]OVER PATIENT BCBS FEP* PROVIDER FAMIL 2010 52 8 ICHAEL ORGANIZAT Y ION (PPO) INDEPENDEN PREFERRED BASIC Oct 08 [id number] [phone] Loc [place] PATIENT CE BLUE PROVIDER FAMIL 2010 52 0 ICHAEL CROSS ORGANIZAT Y (FEP) ION (PPO) Selected Encounter This section includes the information on record at ME for the Encounter. Date/Time Encounter Type Encounter Description Reason Provider Source Aug 21, 2021 08:23 Outpatient Encounter TELEPHONE TRIAGE AM IHE Encounter Template Text not used by ME Plan of Treatment: Future Appointments (+ 6 months) and Future Tests (+/- 45 days) The Plan of Treatment section includes future care activities for the patient from all ME treatment facilities. This section includes future appointments and future orders which are active, pending or scheduled.Future Appointments This section includes appointments that were scheduled to occur 6 months from the date of the Encounter, up to a maximum of 20 appointments. The [facility] Appointment Date/Time Appointment Type Appointment Facili ty Name Sep 25, 2021 11:30 AM AMBUL[facility]ORY - MEDICINE [facility] Oct 05, 2021 02:00 PM AM[facility] - MEDICINE [place] [facility] Oct 05, 2021 03:30 PM AMBULATORY - NONE [place] Nov 22, 2021 10:00 AM AMBULATORY - MEDICINE [facility] [facility] Nov 22, 2021 11:30 AM AMBULATORY - NONE [facility] Dec 15, 2021 11:15 AM AMBULATORY - NONE [facility] Jan 25, 2022 11:30 AM AMBULATORY - MEDICINE [place] Active, Pending, and Scheduled Orders This section includes a listing of several types of active, pending, and scheduled orders, including clinic medications orders, diagnostic test orders, procedure orders and consult orders; where the start date of the order is 45 days before the date of the Encounter or 45 days after the date of the Encounter. The data comes from all ME treatment facilities. Test Date/Time Test Type Test Details Facility Name Aug 15, 2021 10:44 AM Consult Order COLONOSCOPY SCREENING OUTP T [facility] Cons Retort Firer[facility] Choice Oct 01, 2021 09:23 AM Consult Order DERMATOLOGY OUTPATIENT Con s [facility] Retort [facility] Lab Results: +/- 30 days of the encounter This section includes the Chemistry and Hematology Lab Results on record with ME for the patient. Radiology Reports and Pathology Reports are provided separately, in subsequent sections.Lab Results This section contains the Chemistry/Hematology Results that were resulted 30 days before or 30 days after the date of the Encounter. Date/Time Source Result Type Result - Unit Interpretation Reference Range Comment Aug 15, 2021 11:01 [facility] URINALYSIS W/REFLEX TO Specimen Type: URINE AM CULTURE No comment enter ed. Ordering Provider: DARIN GONZALEZ Report Released Date/Time: Aug 15, 2021 10:46 AM Reporting [facility] [address] [facility] [address] Performing Lab: [facility] [address] [facility] [address] URINE COLOR Straw YELLOW SPECIFIC GRAVITY 1.005 1.003-1.030 UROBILINOGEN <2.0 mg/dL <2.0 URINE BILIRUBIN NEG NEG URINE KETONES NEG mg/dL NEG URINE GLUCOSE NEG mg/dL NEG PROTEIN, URINE NEG mg/dL NEG URINE PH 7.0 5-8 CLARITY CLEAR Clear URINE BLOOD NEG NEG NITRITE, URINE NEG NEG WBC SCREEN NEG NEG Aug 15, 2021 11:01 [facility] P4 GLU,BUN,CREAT,LYTES,CA Specimen Type: PLASMA AM Comment: Tests performed on [employer] (405) SN:[id number] Ordering Provider: DARIN GONZALEZ Report Released Date/Time: Aug 15, 2021 10:46 AM Reporting [facility] [address] [facility] [address] Performing Lab: [facility] [address] [facility] [address] UREA NITROGEN 18 mg/dL 7-25 SODIUM 138 mmol/L 135-145 POTASSIUM 4.0 mmol/L 3.5-5.0 CHLORIDE 106 mmol/L 100-110 CARBON DIOXIDE 21 mmol/L 20-30 ANION GAP 11 mmol/L 4-16 GLUCOSE 94 mg/dL 65-100 CREATININE 1.04 mg/dl 0.5-1.5 CALCIUM 9.1 mg/dL 8.5-10.5 eGFR 73 mL/min >60 Social History: Smoking Status (Most current) and Tobacco Use (All prior to encounter date) This section includes the most current, and the historical, smoking and tobacco-related health factors from the ME facility where the Encounter took place.Current Smoking Status This section includes the most current smoking, or tobacco-related health factor, from the ME facility where the Encounter took place. Date/Time Current Smoking Status Comment Facility May 02, 2020 03:54 PM VA-TOBACCO NEVER USED [facility] Radiology Reports: +/- 30 days of [...] the Encounter. The data comes from all ME treatment facilities. Date/Time Radiology Report Provider Source Aug 18, 2021 09:28 AM ULTRASOUND RENAL: WHITE JHOAN NAT [facility] GERALD CAMP [id number] -JAN 10 64 M Exm Date: AUG 18, 2021@09:28 Req Phys: ROQUE VALERA Loc: OUTSIDE ULTRASOUND (Req'g Loc) Img Loc : OUTSIDE ULTRASOUND Service : Unknown (Case [id number] COMPLETE) ULTRASO UND RENAL (US Detailed) CPT:94389 Reason for Study: Exam imported from outsid e Clinical History: Original Data for Imported Study Patient Name: Gerald Camp Date: 1960 Sex: M Study Date: 08/18/21 [facility] Time: 09:28:05 Study Description: US BLADDER W/RENAL Referring Physician: Darin Gonzalez Series 1: 1 US file Series 2: 40 US files, description: US B LADDER W/RENAL Acquisition site: [facility] Report Status: Electronically Filed Lior boogie Reported: AUG 30, 2021 Report: RADIOLOGY PROCEDURE: N O T I C E: SCANNED IN R EPORT THIS EXAMINATION WAS PERFORMED AND INTERP RETED AT A NON-VA FACILITY. To view the report, select the [employer] Tools Menu and choose the Image Display (Viewer) option. Impression: RADIOLOGY PROCEDURE: N O T I C E: SCANNED IN R EPORT THIS EXAMINATION WAS PERFORMED AND INTERP RETED AT A NON-VA FACILITY. To view the report or images, select the [employer] Tools Menu and choose the Image Display [...] the Encounter. The data comes from all ME treatment facilities. Date/Time Pathology Report Provider Source Aug 18, 2021 04:43 PM LR CYTOPATHOLOGY REPORT: FEDE EVANS [facility] LOCAL TITLE: LR CYTOPATHOLOGY REPORT STANDARD TITLE: PATHOLOGY REPORT DATE OF NOTE: AUG 18, 2021@16:43:21 ENTRY DATE: AUG 18, 2021@16:43:21 AUTHOR: FEDE EVANS EXP COSIGNER: URGENCY: STATUS: COMPLETED $APHDR Reporting Lab: [facility] [CLIA# [id number]] [address] [place] [address] - - - - - - [...] Specimen (Received Aug 16, 2021 08:58): URINE [id number] - - - - - - - [...] - - POSTOPERATIVE DIAGNOSIS: Surgeon/physician: NICANOR GONZALEZ POSTULANT =-=-=-=-=-=-=-=-=-=-=-=-=-=- =-=-=-=-=-=-=-=-=-=-=-=-=-=-=-=-=-=-=-=-=-=-=-=-=-= - - - - - [...] WITH CYTOLYT IN 1 TUBE. [facility] [id number] Diagnosis: Satisfactory specimen No malignant cells identified CPT:60394 /chelle/ FEDE EVANS M.D. PATHOLOGIST Signed Aug 18, 2021@16:43 Performing Laboratory: Cytology Report Performed By: [facility] ION [CLIA# [id number]] [address] [place] [address] $FTR - - - - - - - - - - - - - - - - - - - - - - - - - - - - - - - - - - - - - - - - (End of report) FEDE EVANS MD hs Date Aug 18, 2021 - - - - - - - - - - - - - - - - - - - - - - - - - - - - - - - - - - - - - - - - GERALD CAMP STANDARD FORM 515 ID:[id number] SEX:M :1960 AGE: 61 LO C:NEW HIP PC P: Darin Gonzalez, SHENA /chelle/ FEDE EVANS M.D. PATHOLOGIST Signed: 08/18/2021 16:43 Encounter Notes: All associated encounter notes This section contains the clinical notes associated to the Encounter. Date/Time Encounter Note(s) Provider Source Aug 18, 2021 08:23 AM NONVA NOTE: WILLY JOHNSON [facility] LOCAL TITLE: NonVA Medical Records STANDARD TITLE: NONVA NOTE DATE OF NOTE: AUG 18, 2021@08:23 ENTRY DATE: AUG 21, 2021@08:24:05 AUTHOR: WILLY JOHNSON EXP COSIGNER: URGENCY: STATUS: COMPLETED NonVA Medical Records Has ADDENDA US Bladder w/Renal Time indicates when result was reported PRINT Result [id number] 16:36 Abnormal flagUNKNOWN StatusFinal Referring providerHipes, Darin Roque Associated orderUS Bladder w/Renal External linkClick to view Observation Interpretation US BLADDER W/RENAL EXAM: ULTRASOUND KIDNEYS AND BLADDER RIS EXAM DATE/TIME: 08/18/2021 09:22 INDICATION: History of calculi. Previous surgery . No previous studies are available for comparison . Report of study from 2013 from an outside facility is available. Right kidney measures 14.3 cm in longitudinal extent and the left 12.0. Parenchymal echogenicity is within normal limits bilaterally. Moderate right hydronephrosis noted, described o n prior study. No left hydronephrosis. No evident shadowing echode nsities to suggest calculi. No masses are seen. No perinephric beatriz ections are noted. Prevoid bladder volume calculated 233 ml. Both u reteral jets are visualized. No focal bladder wall masses are see n. No perinephric collections are noted. Moderate postvoid residua l of 49 ml. Mild to moderate prostatic enlargement. IMPRESSION: No previous films available for urszula clintonmansoor. Report of previous study from 2013 is available. Moderate right hydronephrosis. Moderate postvoid bladder residu al. Mild to moderate prostatic enlargement. THIS IS AN ELECTRONICALLY VERIFIED REPORT * 08/18/2021 4:39 PM: MARILYN MONCADA M.D. All versions of this result US Bladder w/RenalFinal (most recent)08-18-2021 16:36 /chelle/ WILLY DESAI Signed: 08/21/2021 08:24 Receipt Acknowledged By: 08/21/2021 09:23 /es/ DARIN GONZALEZ APRN 08/21/2021 09:42 /es/ AIDE LLOYD REGISTERED NURSE 12/13/2021 ADDENDUM STATUS: COMPLETED rec'd disk from [facility] Radiology - 08/18/2021 US B ladder w/Renal - sent to J /chelle/ WILLY JOHNSON [facility] Signed: 12/13/2021 13:14 Receipt Acknowledged By: * AWAITING SIGNATURE * JENNI ALCANTAR
--- OUTSIDE RECORDS SUMMARY | 2021-12-15 13:08 | XMS_ITS | Encounter Summary ---
:1960 Author Organization Department [facility] rs Address [address] [place] [address] Care Team Providers Name Role Phone FLOWERCHELLE [...] [place] Oct 08 [id number] [phone] Loc [place] PATIENT FEP INSURANCE L 112 2010 52 5 ICHAEL (DENTAL) [place] PREFERRED BASIC Oct 08 [id number] [phone] Loc [place] PATIENT FEP PROVIDER FAMIL 2010 52 5 ICHAEL ORGANIZAT Y ION (PPO) [place] OF [place] PREFERRED BASIC Oct 08 [id number] [phone] Loc [place] PATIENT FEDERAL PROVIDER FAMIL 2010 52 4 ICHAEL ORGANIZAT Y ION (PPO) CAREMARK-F PRESCRIPT FEP Oct [id number] Loc [place] PATIENT EP BCBS ION BCBS 2010 0 52 7 ICHAEL CAREMARK-F PRESCRIPT FEP Oct [id number] [phone] Loc [place] PATIENT EP BCBS ION 2010 0 52 331 ICHAEL CAREMARK-F PRESCRIPT BCBS Oct [id number] [phone] Loc [place] PATIENT EP BCBS ION FEP 2010 0 52 331 ICHAEL PLAN [place] PREFERRED SUKHI Oct [id number] [phone] Loc [place] PATIENT BLUE PROVIDER AL* 2010 0 52 6 ICHAEL CROSS* ORGANIZAT ION (PPO) HIGHMARK DENTAL SUKHI Oct 08 [id number] [phone] Loc CAMP PATIENT DENTAL INSURANCE AL 2010 52 7 ICHAEL (FEP) DENTA L HORIZON PREFERRED BASIC Oct 08 [id number] [phone] KURT IM PATIENT BCBS FEP* PROVIDER FAMIL 2010 52 8 ICHAEL ORGANIZAT Y ION (PPO) INDEPENDEN PREFERRED BASIC Oct 08 [id number] [phone] Loc [place] PATIENT CE BLUE PROVIDER FAMIL 2010 52 0 ICHAEL CROSS ORGANIZAT Y (FEP) ION (PPO) Selected Encounter This section includes the information on record at [place] for the Encounter. Date/Time Encounter Type Encounter Description Reason Provider Source Aug 15, 2021 12:00 Outpatient Encounter EVENT (HISTORICAL) AM E Encounter Template Text not used by PA Plan of Treatment: Future Appointments (+ 6 [...] appointments. The [facility] Appointment Date/Time Appointment Type Appointment Facili ty Name Aug 18, 2021 04:36 PM AMBULATORY - NONE [facility] Sep 25, 2021 11:30 AM [facility]ORY - MEDICINE [facility] Oct 05, 2021 02:00 PM AMBULATORY - MEDICINE [facility] Oct 05, 2021 03:30 PM AMBULATORY - NONE [facility] Nov 22, 2021 10:00 AM AMBULATORY - MEDICINE [facility] Nov 22, 2021 11:30 AM [facility]ULATORY - NONE [facility] Dec 15, 2021 11:15 AM AMBULATORY - NONE [facility] Jan 25, 2022 11:30 AM AMBULATORY - MEDICINE [facility] Active, Pending, and Scheduled Orders This [...] AM Consult Order COLONOSCOPY SCREENING OUTP T [facility] Cons [employer] Officer's Choice Lab Results: +/- 30 days of [...] Reference Range Comment Aug 15, 2021 11:01 [facility] URINALYSIS W/REFLEX TO Specimen Type: URINE AM CULTURE No comment enter ed. Ordering Provider: DARIN ZHAO Report Released Date/Time: Aug 15, 2021 10:46 AM Reporting Lab: [facility] [address] [facility] [address] Performing Lab: [facility] [address] [facility] [address] URINE COLOR Straw YELLOW SPECIFIC GRAVITY 1.005 1.003-1.030 UROBILINOGEN <2.0 mg/dL <2.0 URINE BILIRUBIN NEG NEG URINE KETONES NEG mg/dL NEG URINE GLUCOSE NEG mg/dL NEG PROTEIN, URINE NEG mg/dL NEG URINE PH 7.0 5-8 CLARITY CLEAR Clear URINE BLOOD NEG NEG NITRITE, URINE NEG NEG WBC SCREEN NEG NEG Aug 15, 2021 11:01 [facility] P4 GLU,BUN,CREAT,LYTES,CA Specimen Type: PLASMA AM Comment: Tests performed on Rebelle (405) SN:[id number] Ordering Provider: DARIN ZHAO Report Released Date/Time: Aug 15, 2021 10:46 AM Reporting Lab: [facility] [address] [facility] [address] Performing Lab: [facility] [address] [facility] [address] UREA NITROGEN 18 mg/dL 7-25 SODIUM 138 [...] 02, 2020 03:54 PM VA-TOBACCO NEVER USED [facility] Radiology Reports: +/- 30 days of [...] 09:28 AM ULTRASOUND RENAL: WHITE [facility] GERALD CAMP [id number] -JAN 10 [birth year] M Exm Date: AUG 18, 2021@09:28 Req Phys: EVONNE VALERA Loc: OUTSIDE ULTRASOUND (Req'g Loc) Img Loc : OUTSIDE ULTRASOUND Service : Unknown (Case [id number] COMPLETE) ULTRASO UND RENAL (US Detailed) CPT:43546 Reason for Study: Exam imported from outsid e Clinical History: Original Data for Imported Study Patient Name: Gerald Camp Date: 1960 Sex: M Study Date: 08/18/21 [facility] Time: 09:28:05 Study Description: US [...] view the report or images, select the FollowapS Tools Menu and choose the Image Display [...] 04:43 PM LR CYTOPATHOLOGY REPORT: FEDE EVANS [facility] LOCAL TITLE: LR CYTOPATHOLOGY REPORT STANDARD TITLE: PATHOLOGY REPORT DATE OF NOTE: AUG 18, 2021@16:43:21 ENTRY DATE: AUG 18, 2021@16:43:21 AUTHOR: FEDE EVANS EXP COSIGNER: URGENCY: STATUS: COMPLETED $APHDR Reporting Lab: [facility] [CLIA# [id number]] [address] [place] [address] - - - - - - [...] Specimen (Received Aug 16, 2021 08:58): URINE [id number] - - - - - - - [...] - - POSTOPERATIVE DIAGNOSIS: Surgeon/physician: NICANOR ZHAO COGNOS DEVELOPER =-=-=-=-=-=-=-=-=-=-=-=-=-=- =-=-=-=-=-=-=-=-=-=-=-=-=-=-=-=-=-=-=-=-=-=-=-=-=-= - - - - - [...] SENT WITH CYTOLYT IN 1 TUBE. [facility] [id number] Diagnosis: Satisfactory specimen No malignant cells identified CPT:44949 /chelle/ FEDE EVANS M.D. PATHOLOGIST Signed Aug 18, 2021@16:43 Performing Laboratory: Cytology Report Performed By: [facility] [employer] [CLIA# [id number]] [address] [place] [address] $FTR - - - - - - [...] - - GERALD CAMP STANDARD FORM 515 ID:[id number] SEX:M :1960 AGE: 61 LO C:NEW HIP PC P: Darin Zhao NP /chelle/ FEDE EVANS M.D. PATHOLOGIST Signed: 08/18/2021 16:43
--- OUTSIDE RECORDS SUMMARY | 2021-12-15 13:08 | XMS_ITS ---
:1960 Author Organization Department [facility] rs Address [address] [place] [address] Care Team Providers Name Role Phone FLOWERCHELLE [...] [place] Oct 08 [id number] [phone] Loc [place] PATIENT FEP INSURANCE L 112 2010 52 5 ICHAEL (DENTAL) [place] PREFERRED BASIC Oct 08 [id number] [phone] Loc [place] PATIENT FEP PROVIDER FAMIL 2010 52 5 ICHAEL ORGANIZAT Y ION (PPO) [place] PREFERRED BASIC Oct 08 [id number] [phone] Loc [place] PATIENT FEDERAL PROVIDER FAMIL 2010 52 4 ICHAEL ORGANIZAT Y ION (PPO) CAR[place]ARK-F PRESCRIPT FEP Oct [id number] Loc [place] PATIENT EP BCBS ION BCBS 2010 0 52 7 ICHAEL CAREMARK-F PRESCRIPT FEP Oct [id number] [phone] Loc [place] PATIENT EP BCBS ION 2010 0 52 331 ICHAEL CAREMARK-F PRESCRIPT BCBS Oct [id number] [phone] Loc [place] PATIENT EP BCBS ION FEP 2010 0 52 331 ICHAEL PLAN [place]IGHMARK PREFERRED SUKHI Oct 08 [id number] [phone] Loc [place] PATIENT BLUE PROVIDER AL* 2010 0 52 6 ICHAEL CROSS* ORGANIZAT ION (PPO) HIGHMARK DENTAL SUKHI Oct 08 [id number] [phone] Loc CAMP PATIENT DENTAL INSURANCE AL 2010 52 7 ICHAEL (FEP) DENTA L HORIZ[place] PREFERRED BASIC Oct 08 [id number] [phone] KUR[place] IM PATIENT BCBS FEP* PROVIDER FAMIL 2010 52 8 ICHAEL ORGANIZAT Y ION (PPO) INDEPENDEN PREFERRED BASIC Oct 08 [id number] [phone] Loc [place] PATIENT CE BLUE PROVIDER FAMIL 2010 52 0 ICHAEL CROSS ORGANIZAT Y (FEP) ION (PPO) Selected Encounter This section includes the information on record at [place] for the Encounter. Date/Time Encounter Type Encounter Description Reason Provider Source Aug 18, 2021 04:43 Outpatient Encounter EVENT (HISTORICAL) FEDE EVANS IHE Encounter Template Text not used by [facility] Plan of Treatment: Future Appointments (+ 6 months) and Future Tests (+/- 45 days) The Plan of Treatment section includes future care activities for the patient from all [place] treatment facilities. This section includes future appointments and future orders which are active, pending or scheduled.Future Appointments This section includes appointments that were scheduled to occur 6 months from the date of the Encounter, up to a maximum of 20 appointments. The data comes from all [place] [facility] Appointment Date/Time Appointment Type Appointment Facili ty Name Sep 25, 2021 11:30 AM AMBULATORY - MEDICINE [facility] Oct 05, 2021 02:00 PM AM[facility]ULATORY - [facility]ICINE [facility] Oct 05, 2021 03:30 PM AMBULATORY - NONE [facility] Nov 22, 2021 10:00 AM AM[facility]UL[facility]IC[facility] Nov 22, 2021 11:30 AM AMBULATORY - NONE [facility] Dec 15, 2021 11:15 AM AMBULATORY - NONE [facility] Jan 25, 2022 11:30 AM AMBULATORY - MEDICINE [facility] Active, Pending, and Scheduled Orders This section includes a listing of several types of active, pending, and scheduled orders, including clinic medications orders, diagnostic test orders, procedure orders and consult orders; where the start date of the order is 45 days before the date of the Encounter or 45 days after the date of the Encounter. The data comes from all [place] treatment facilities. Test Date/Time Test Type Test Details Facility Name Aug 15, 2021 10:44 AM Consult Order COLONOSCOPY SCREENING OUTP T [facility] Cons [employer] Designer's Choice Oct 01, 2021 09:23 AM Consult Order DERMATOLOGY OUTPATIENT Con s [facility] Systems Software Designer's Choice Lab Results: +/- 30 days of [...] Reference Range Comment Aug 15, 2021 11:01 [facility] URINALYSIS W/REFLEX TO Specimen Type: URINE AM CULTURE No comment enter ed. Ordering Provider: DARIN ZHAO Report Released Date/Time: Aug 15, 2021 10:46 AM Reporting Lab: [facility] [address] [facility] [address] Performing Lab: [facility] [address] [facility] [address] URINE COLOR Straw YELLOW SPECIFIC GRAVITY 1.005 1.003-1.030 UROBILINOGEN <2.0 mg/dL <2.0 URINE BILIRUBIN NEG NEG URINE KETONES NEG mg/dL NEG URINE GLUCOSE NEG mg/dL NEG PROTEIN, URINE NEG mg/dL NEG URINE PH 7.0 5-8 CLARITY CLEAR Clear URINE BLOOD NEG NEG NITRITE, URINE NEG NEG WBC SCREEN NEG NEG Aug 15, 2021 11:01 [facility] P4 GLU,BUN,CREAT,LYTES,CA Specimen Type: PLASMA AM Comment: Tests performed on [employer] (405) SN:[id number] Ordering Provider: DARIN ZHAO Report Released Date/Time: Aug 15, 2021 10:46 AM Reporting Lab: [facility] [address] [facility] [address] Performing Lab: [facility] [address] [facility] ITE [facility] [address] UREA NITROGEN 18 mg/dL 7-25 SODIUM 138 [...] smoking and tobacco-related health factors from the [place] facility where the Encounter took place.Current Smoking Status This section includes the most current smoking, or tobacco-related health factor, from the [place] facility where the Encounter took place. Date/Time Current Smoking Status Comment Facility May 02, 2020 03:54 PM VA-TOBACCO NEVER USED [facility] Radiology Reports: +/- 30 days of [...] the Encounter. The data comes from all [place] treatment facilities. Date/Time Radiology Report Provider Source Aug 18, 2021 09:28 AM ULTRASOUND RENAL: [facility] GERALD CAMP [id number] -JAN 10 64 M Exm Date: AUG 18, 2021@09:28 Req Phys: EVONNE VALERA Loc: OUTSIDE ULTRASOUND (Req'g Loc) Img Loc : OUTSIDE ULTRASOUND Service : Unknown (Case 327 COMPLETE) ULTRASO UND RENAL (US Detailed) CPT:25909 Reason for Study: Exam imported from outsid e Clinical History: Original Data for Imported Study Patient Name: Gerald Camp Date: 1960 Sex: M Study Date: 08/18/21 [facility] Time: 09:28:05 Study Description: US BLADDER W/RENAL Referring Physician: Darin Zhao Series 1: 1 US file Series 2: 40 US files, description: US B LADDER W/RENAL Acquisition site: [facility] Report Status: Electronically Filed Lior hyman Reported: [...] view the report or images, select the CPRS Tools Menu and choose [...] the Encounter. The data comes from all [place] treatment facilities. Date/Time Pathology Report Provider Source Aug 18, 2021 04:43 PM LR CYTOPATHOLOGY REPORT: FEDE EVANS [facility] LOCAL TITLE: LR CYTOPATHOLOGY REPORT STANDARD TITLE: PATHOLOGY REPORT DATE OF NOTE: AUG 18, 2021@16:43:21 ENTRY DATE: AUG 18, 2021@16:43:21 AUTHOR: FEDE EVANS EXP COSIGNER: URGENCY: STATUS: COMPLETED $APHDR Reporting Lab: [facility] [CLIA# [id number]] [address] [place] [address] - - - - - - [...] Specimen (Received Aug 16, 2021 08:58): URINE [id number] - - - - - - - [...] - - POSTOPERATIVE DIAGNOSIS: Surgeon/physician: NICANOR ZHAO VP DIRECTOR OF CREATIVE STRATEGY =-=-=-=-=-=-=-=-=-=-=-=-=-=- =-=-=-=-=-=-=-=-=-=-=-=-=-=-=-=-=-=-=-=-=-=-=-=-=-= - - - - - [...] FLUID. SENT WITH CYTOLYT IN 1 TUBE. [facility] [id number] Diagnosis: Satisfactory specimen No malignant cells identified CPT:12866 /chelle/ FEDE EVANS M.D. PATHOLOGIST Signed Aug 18, 2021@16:43 Performing Laboratory: Cytology Report Performed By: [facility] [CLIA# [id number]] [address] [place] [address] $FTR - - - - - - [...] - - GERALD CAMP STANDARD FORM 515 ID:[id number] SEX:M :1960 AGE: 61 LO C:NEW HIP PC P: Darin Zhao, SHENA /chelle/ FEDE EVANS M.D. PATHOLOGIST Signed: 08/18/2021 16:43 Encounter Notes: All associated encounter notes This section contains the clinical notes associated to the Encounter. Date/Time Encounter Note(s) Provider Source Aug 18, 2021 04:43 PM PATHOLOGY REPORT: FEDE EVANS [facility] LOCAL TITLE: LR CYTOPATHOLOGY REPORT STANDARD TITLE: PATHOLOGY REPORT DATE OF NOTE: AUG 18, 2021@16:43:21 ENTRY DATE: AUG 18, 2021@16:43:21 AUTHOR: FEDE EVANS EXP COSIGNER: URGENCY: STATUS: COMPLETED $APHDR Reporting Lab: [facility] [CLIA# [id number]] [address] [place] [address] - - - - - - [...] Specimen (Received Aug 16, 2021 08:58): URINE [id number] - - - - - - - [...] - - POSTOPERATIVE DIAGNOSIS: Surgeon/physician: NICANOR ZHAO VP DIRECTOR OF CREATIVE STRATEGY =-=-=-=-=-=-=-=-=-=-=-=-=-=- =-=-=-=-=-=-=-=-=-=-=-=-=-=-=-=-=-=-=-=-=-=-=-=-=-= - - - - - [...] - - - - Screened by: SCOTTY HER Elvia MOISE Description: RECEIVED 20mL OF CLEAR, YELLOS FLUID. SENT WITH CYTOLYT IN 1 TUBE. [facility] [id number] Diagnosis: Satisfactory specimen No malignant cells identified CPT:27902 /chelle/ FEDE EVANS M.D. PATHOLOGIST Signed Aug 18, 2021@16:43 Performing Laboratory: Cytology Report Performed By: [facility] [CLIA# [id number]] [address] [place] [address] $FTR - - - - - - [...] - - GERALD CAMP STANDARD FORM 515 ID:[id number] SEX:M :1960 AGE: 61 LO C:NEW HIP PC P: Darin Zhao NP /chelle/ FEDE EVANS M.D. PATHOLOGIST Signed: 08/18/2021 16:43
--- OUTSIDE RECORDS SUMMARY | 2021-12-15 13:08 | XMS_ITS | Encounter Summary ---
:1960 Author Organization Department [facility] rs Address [address] [place] [address] Care Team Providers Name Role Phone FLOWERDARIN SALEEM Primary Care Provider Unavailable Insurance Providers: All [...] [place] Oct 08 [id number] [phone] Loc [place] PATIENT FEP INSURANCE L 112 2010 52 5 ICHAEL (DENTAL) [place] PREF[place] Oct 08 [id number] [phone] Loc [place] PATIENT FEP PROVIDER FAMIL 2010 52 5 ICHAEL ORGANIZAT Y ION (PPO) [place] PREFERRED BASIC Oct 08 [id number] [phone] Loc [place] PATIENT FEDERAL PROVIDER FAMIL 2010 52 4 ICHAEL ORGANIZAT Y ION (PPO) CAREMARK-F PRESCRIPT FEP Oct [id number] [phone] Loc [place] PATIENT EP BCBS ION BCBS 2010 0 52 7 ICHAEL CAR[place]ARK-F PRESCRIPT FEP Oct [id number] [phone] Loc [place] PATIENT EP BCBS ION 2010 0 52 331 I[place]EL CAREMARK-F PRESCRIPT BCBS Oct [id number] [phone] Loc [place] PATIENT EP BCBS ION FEP 2010 0 [phone] ICHAEL PLAN [place] PREFERRED SUKHI Oct [id number] [phone] Loc [place] PATIENT BLUE PROVIDER AL* 2010 0 52 6 ICHAEL CROSS* ORGANIZAT ION (PPO) HIGHMARK DENTAL SUKHI Oct 08 [id number] [phone] Loc [place] PATIENT DENTAL INSURANCE AL 2010 52 7 ICHAEL (FEP) DENTA L HORIZON PREFERRED BASIC Oct 08 [id number] [phone] [place] IM PATIENT BCBS FEP* PROVIDER FAMIL 2010 52 8 ICHAEL ORGANIZAT Y ION (PPO) INDEPENDEN PREFERRED BASIC Oct 08 [id number] [phone] Loc [place] PATIENT CE BLUE PROVIDER FAMIL 2010 52 0 ICHAEL CROSS ORGANIZAT Y (FEP) ION (PPO) Selected Encounter This section includes the information on record at [place] for the Encounter. Date/Time Encounter Type Encounter Reason Provider Source Description Aug 21, 2021 Outpatient UROLOGY CLINIC ICD-10-CM N13.30 AMIRA HERRING 03:20 PM Encounter Unspecified RUBIO hydronephrosis with Provider Comments: Unspecified hydronephrosis IHE Encounter Template Text not used by [facility] Assessments - Encounter Diagnoses This section includes the primary and secondary diagnoses documented forthe Encounter. Date/Time Primary/Secondary Diagnosis Name Provider Source Diagnosis Aug 21, 2021 PRIMARY Unspecified BRENNEN HERRING 03:25 PM hydronephrosis AN T [facility] Plan of Treatment: Future Appointments (+ [...] appointments. The [facility] [place] [facility] Appointment Date/Time Appointment Type Appointment Facili ty Name Sep 25, 2021 11:30 AM AMBULATORY - MEDICINE [facility] Oct 05, 2021 02:00 PM AMBULATORY - MEDICINE [facility] Oct 05, 2021 03:30 PM AMBULATORY - NONE [facility] Nov 22, 2021 10:00 AM AMBULATORY - MEDICINE [facility] Nov 22, 2021 11:30 AM AMBULATORY - NONE [facility] Dec 15, 2021 11:15 AM AMBULATORY - NONE [facility] Jan 25, 2022 11:30 AM AMBULATORY - MEDICINE [facility] Active, Pending, and Scheduled Orders [...] Consult Order COLONOSCOPY SCREENING OUTP T [facility] Cons [employer] Oct 01, 2021 09:23 AM Consult Order DERMATOLOGY OUTPATIENT Con s [facility] [employer] Lab Results: +/- 30 days of the encounter This section includes the Chemistry and Hematology Lab Results on record with [place] for the patient. Radiology Reports and Pathology Reports are provided separately, in subsequent sections.Lab Results This section contains the Chemistry/Hematology Results that were resulted 30 days before or 30 days after the date of the Encounter. Date/Time Source Result Type Result - Unit Interpretation Reference Range Comment Aug 15, 2021 11:[address] [facility] URINALYSIS W/REFLEX TO Specimen Type: URINE AM CULTURE No comment enter ed. Ordering Provider: DARIN GONZALEZ Report Released Date/Time: Aug 15, 2021 10:46 AM Reporting Lab: [facility] [address] [facility] [address] Performing Lab: [facility] [address] [facility] [address] URINE COLOR Straw YELLOW SPECIFIC GRAVITY 1.005 1.003-1.030 UROBILINOGEN <2.0 mg/dL <2.0 URINE BILIRUBIN NEG NEG URINE KETONES NEG mg/dL NEG URINE GLUCOSE NEG mg/dL NEG PROTEIN, URINE NEG mg/dL NEG URINE PH 7.0 5-8 CLARITY CLEAR Clear URINE BLOOD NEG NEG NITRITE, URINE NEG NEG WBC SCREEN NEG NEG Aug 15, 2021 11:[address] [facility] P4 GLU,BUN,CREAT,LYTES,CA Specimen Type: PLASMA AM Comment: Tests performed on [employer] 405 [id number] Ordering Provider: DARIN GONZALEZ Report Released Date/Time: Aug 15, 2021 10:46 AM Reporting Lab: [facility] [address] [facility] [address] Performing Lab: [facility] [address] [facility] [address] UREA NITROGEN 18 mg/dL 7-25 SODIUM 138 [...] 03:54 PM VA-TOBACCO NEVER USED SV[facility] Radiology Reports: +/- 30 days of the [...] 2021 09:28 AM ULTRASOUND RENAL: [facility] GERALD CAMP [id number] -JAN [birth year] 64 M Exm Date: AUG 18, 2021@09:28 Req Phys: EVONNE VALERA Loc: OUTSIDE ULTRASOUND (Req'g Loc) Img Loc : OUTSIDE ULTRASOUND Service : Unknown (Case [id number] COMPLETE) ULTRASO UND RENAL (US Detailed) CPT:49505 Reason for Study: Exam imported from [employer] Clinical History: Original Data for Imported Study Patient Name: Gerald Camp Date: 1960 Sex: M Study Date: 08/18/21 [facility] Time: 09:28:05 Study Description: US BLADDER W/RENAL Referring Physician: Darin Gonzalez Series 1: 1 US file Series 2: 40 US files, description: US B LADDER W/RENAL Acquisition site: [facility] Report Status: Electronically Filed Da te Reported: AUG 30, 2021 Report: RADIOLOGY PROCEDURE: N O T I C E: SCANNED IN R EPORT THIS EXAMINATION WAS PERFORMED AND INTERP RETED AT A NON-[place] FACILITY. To view the report, select the [employer] Tools Menu and choose the Image Display (Viewer) option. Impression: RADIOLOGY PROCEDURE: N O T I C E: SCANNED IN R EPORT THIS EXAMINATION WAS PERFORMED AND INTERP RETED AT A NON-[facility] FACILITY. To view the report or images, select the [employer] Tools Menu and choose the Image Display [...] 04:43 PM LR CYTOPATHOLOGY REPORT: FEDE EVANS [facility] LOCAL TITLE: LR CYTOPATHOLOGY REPORT STANDARD TITLE: PATHOLOGY REPORT DATE OF NOTE: AUG 18, 2021@16:43:21 ENTRY DATE: AUG 18, 2021@16:43:21 AUTHOR: FEDE EVANS EXP COSIGNER: URGENCY: STATUS: COMPLETED $APHDR Reporting Lab: [facility] [CLIA# [id number]] [address] [facility] [place] [address] - - - - - - [...] Specimen (Received Aug 16, 2021 08:58): URINE [id number] - - - - - - - [...] - - POSTOPERATIVE DIAGNOSIS: Surgeon/physician: NICANOR GONZALEZ VP RESPIRATORY =-=-=-=-=-=-=-=-=-=-=-=-=-=- =-=-=-=-=-=-=-=-=-=-=-=-=-=-=-=-=-=-=-=-=-=-=-=-=-= - - - - - [...] FLUID. SENT WITH CYTOLYT IN 1 TUBE. [facility] [id number] Diagnosis: Satisfactory specimen No malignant cells identified CPT:32260 /chelle/ FEDE EVANS M.D. PATHOLOGIST Signed Aug 18, 2021@16:43 Performing Laboratory: Cytology Report Performed By: [facility] [CLIA# [id number]] [address] [place] [address] $FTR - - - - - - [...] - - GERALD CAMP STANDARD FORM 515 ID:[id number] SEX:M :1960 AGE: 61 LO C:NEW HIP PC P: Darin Gonzalez NP /chelle/ FEDE EVANS M.D. PATHOLOGIST Signed: 08/18/2021 16:43 Encounter Notes: All associated encounter notes This section contains the clinical notes associated to the Encounter. Date/Time Encounter Note(s) Provider Source Aug 21, 2021 03:20 PM UROLOGY CONSULT: BENEDICT HERRING T LOCAL TITLE: UROLOGY E-CONSULT [facility] STANDARD TITLE: UROLOGY CONSULT DATE OF NOTE: AUG 21, 2021@15:20 ENTRY DATE: AUG 21, 2021@15:20:25 AUTHOR: BENEDICT HERRING EXP COSIGNER: URGENCY: STATUS: COMPLETED UROLOGY E CONSULT: Q received: is service-connected for kidney related issues. Apparently, in 2009 he was found to have hydronephrosis after c omplaining of right-sided lower back pain. 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 U [facility]ound at [facility] shows the following result: IMPRESSION: No previous films available for urszula orosco. Report of previous study from 2012 is available. Moderate right hydronephrosis. Moderate postvoid bladder residu al. Mild to moderate prostatic enlargement. Chart reviewed: Has not seen urology previously at [facility]. PMH: No Active Problems on record MEDS: Active Outpatient Medications (excluding Supplie s): Active Non-VA Medications Status 1) Non-VA AMOXICILLIN 500/CLAV K 125MG TAB 1 T ABLET BY ACTIVE MOUTH THREE TIMES A DAY 2) Non-VA FLUTICASONE PROP 50MCG 120D NASAL IN HL 2 ACTIVE SPRAYS INTO EACH NOSTRIL Normal renal function. No imaging available in CPRS. A: moderate right hydronephr osis, moderate PVR on ultrasound, history of kinked ureter Rec: - obtain [facility] f or upload on our PACS - consider CT urogram for definitive work-up of right ureter and renal pelvis including anatomy - would be happy to see Sunshine strickland via after the CTU is done to discuss results /chelle/ BENEDICT HERRING Station [employer] Specialist, Urology Signed: 08/21/2021 15:25
== END 2021-12-15 13:01 | disposition home or self-care (01) ==
LOC: LBN 13:00
PROVIDERS: PCP Nurse Practitioner Family; Visit Provider Otolaryngology Otolaryngology/Facial Plastic Surgery
DX: L82.0 Inflamed seborrheic keratosis (principal)
CPT/HCPCS: 88305